=== PATIENT | female | born 1965 | race Hispanic/Latino ===

== ENCOUNTER 2017-03-02 21:17 | Emergency (ER) | payer SELFPAY ==
[2017-03-02 22:15] LABS: Eosinophils % (Auto) 2.2 % (0.0-4.3)
[2017-03-02 22:37] LABS: Alkaline Phosphatase 170 units/L (35-129); BUN/Creatinine Ratio 23.33; Blood Urea Nitrogen 14 mg/dL (7-17); Calcium 9.2 mg/dL (8.4-10.2); Carbon Dioxide 22 mmol/L (22-30); Chloride 89.6 mmol/L (98-107); Glucose 387 mg/dL (65-100); Total Protein 7.6 g/dL (6.3-8.2)
[2017-03-02 22:38] LABS: INR 0.83 (0.87-1.13)
[2017-03-02 22:45] LABS: Bilirubin,Urine NEG (Negative); Blood,Urine SM (Negative); Ketones,Urine NEG (Negative); Leukocyte Esterase,Urine NEG (Negative); Nitrite,Urine NEG (Negative); Protein,Urine <15 mg/dL mg/dL (Negative); Urobilinogen,Urine < 2.0 mg/dL (<2.0); WBC,Urine < 1.0 /HPF (0.0-6.0)
[2017-03-02 22:50] LABS: Albumin 3.9 g/dL (3.9-5); Albumin/Globulin Ratio 1.1 %; Anion Gap 24 mmol/L; Potassium 4.1 mmol/L (3.6-5.0); Sodium 133 mmol/L (137-145)
[2017-03-02 23:09] LABS: Alanine Aminotransferase 27 units/L (7-56)
[2017-03-02 23:30] LABS: Mean Corpuscular Volume 82 fl (79-97); Red Blood Count 5.08 M/mm3 (3.65-5.03); White Blood Count 8.7 K/mm3 (4.5-11.0)
[2017-03-02 23:40] LABS: Basophils % (Auto) 0.7 % (0.0-1.8); Hematocrit 42.7 % (30.3-42.9); Hemoglobin 14.3 gm/dl (10.1-14.3); Mean Corpuscular HGB Conc 34 % (30-34); Mean Corpuscular Hemoglobin 27 pg (28-32); Platelet Count 238 K/mm3 (140-440); Red Cell Distribution Width 14.3 % (13.2-15.2)
[2017-03-03] MEDS ORDERED: NACL 0.9% 1000 ML 1,000 ML IV ONE ×2 (00:32→02:06)
[2017-03-03] MEDS ORDERED: BACTRIM DS PO ONE (00:33)
--- NOTE | 2017-03-03 00:49 | Emergency Department Report ---
ED General Adult HPI - General Chief complaint: Hyperglycemia Stated complaint: HIGH BLOOD SUGAR/DIZZINESS/BLURRED VISION Time Seen by Provider: 03/03/17 00:07 Source: patient Mode of arrival: Ambulatory Limitations: No Limitations - History of Present Illness Initial comments: 51-year-old female with a past medical history of diabetes, hypertension, and depression presents to the hospital complaints of elevated glucose for the past 2 days. Patient takes Amaryl 4 mg twice a day, metformin 500 mg twice a day, and Lantus 75 units at night. Patient has been intermittently compliant and takes medication when she has it. She has had insulin for the last 4 days but took her last dose last night. Patient complains of increased urination, lightheadedness, generalized body aches since yesterday. Positive nausea without vomiting. Yesterday her sugar was in the 480s and today she checked it and it just read high. History of DKA in the past. Patient has a chronic right great toe ulcer that gets better and worse intermittently. No reports of fever. Patient has diabetic neuropathy with decreased sensation to the extremities chronically. Severity scale (0 -10): 0 - Related Data Home Medications Medication Instructions Recorded Confirmed Last Taken Carisoprodol [Soma] 350 mg PO BID 03/22/16 09/16/16 Unknown Metformin HCl [Metformin HCl ER] 750 mg PO BID 09/16/16 09/16/16 Unknown Previous Rx's Medication Instructions Recorded Last Taken Type Butalb/Acetamin/Caff 50-325-40 1 each PO Q4H PRN #30 tablet 03/27/16 Unknown Rx [Fioricet] Citalopram Hydrobromide [celeXA] 40 mg PO QAM #30 tablet 03/27/16 Unknown Rx Verapamil HCl [Verelan] 360 mg PO DAILY #30 cap24h.pel 03/27/16 Unknown Rx Clindamycin [Clindamycin CAP] 300 mg PO TID #24 capsule 09/17/16 Unknown Rx Insulin NPH/Regular [NovoLIN 70/30] 25 unit SQ BIDDIAB #100 ml 09/17/[address] [Yaron Rosa] 250 mg PO BID #60 tablet 09/18/16 Unknown Rx Insulin Glargine [Lantus] 75 unit SUB-Q QHS 30 Days 03/03/17 Unknown Rx Sulfamethoxazole/Trimethoprim 1 each PO BID #20 tablet 03/03/17 Unknown Rx [Bactrim DS TAB] Allergies Allergy/AdvReac Type Severity Reaction Status Date / Time meperidine HCl [From Demerol] Allergy Unknown Verified 09/16/16 06:19 ED Review of Systems ROS: Stated complaint: HIGH BLOOD SUGAR/DIZZINESS/BLURRED VISION Other details as noted in HPI Comment: All other systems reviewed and negative Other: Constitutional: No fevers chills Eyes: No eye pain visual changes ENT: No ear pain or throat pain Neck: Denies pain Respiratory: Denies cough wheezing shortness of breath Cardiovascular: Denies chest pain, palpitations, syncope GI: Denies abdominal pain, nausea, vomiting, diarrhea : Denies dysuria Musculoskeletal: myalgias Skin: great toe ulcer Neurologic: Denies headache, numbness, weakness ED Past Medical Hx - Past Medical History Hx Hypertension: Yes Hx Congestive Heart Failure: No Hx Diabetes: Yes Hx Headaches / Migraines: Yes Hx Psychiatric Treatment: Yes (depression) Hx Asthma: No Hx COPD: No - Surgical History Hx Cholecystectomy: Yes Additional Surgical History: TUBAL LIGATION - Social History Smoking Status: Never Smoker Substance Use Type: None - Medications Home Medications: Home Medications Medication Instructions Recorded Confirmed Last Taken Type Carisoprodol [Soma] 350 mg PO BID 03/22/16 09/16/16 Unknown History Butalb/Acetamin/Caff 50-325-40 1 each PO Q4H PRN #30 tablet 03/27/16 09/16/16 Unknown Rx [Fioricet] Citalopram Hydrobromide [celeXA] 40 mg PO QAM #30 tablet 03/27/16 09/16/16 Unknown Rx Verapamil HCl [Verelan] 360 mg PO DAILY #30 cap24h.pel 03/27/16 09/16/16 Unknown Rx Metformin HCl [Metformin HCl ER] 750 mg PO BID 09/16/16 09/16/16 Unknown History Clindamycin [Clindamycin CAP] 300 mg PO TID #24 capsule 09/17/16 Unknown Rx Insulin NPH/Regular [NovoLIN 70/30] 25 unit SQ BIDDIAB #100 ml 09/17/[address] [Depakote Dr] 250 mg PO BID #60 tablet 09/18/16 Unknown Rx Insulin Glargine [Lantus] 75 unit SUB-Q QHS 30 Days 03/03/17 Unknown Rx Sulfamethoxazole/Trimethoprim 1 each PO BID #20 tablet 03/03/17 Unknown Rx [Bactrim DS TAB] ED Physical Exam - General Limitations: No Limitations - Other Other exam information: General: No limitations, patient is alert in no acute distress Head exam: Atraumatic, normocephalic Eyes exam: Normal appearance, pupils equal reactive to light, extraocular movements intact ENT: Moist mucous membrane Neck exam: Normal inspection, full range of motion, no meningismus nontender Respiratory exam: Clear to auscultation bilateral, no wheezes, rales, crackles Cardiovascular: Normal rate and rhythm, normal heart sounds Abdomen: Soft, nondistended, and nontender, with normal bowel sounds, no rebound, or guarding Extremity: Full range of motion. Right great toe 1 x 2 cm ulcer to pulp of the toe. Erythema to distal toe Back: Normal Inspection, full range of motion, no tenderness Neurologic: Alert, oriented x3, cranial nerves intact, no motor or sensory deficit Psychiatric: normal affect, normal mood Skin: Warm, dry, intact ED Course Vital Signs 03/02/17 03/02/17 03/03/17 21:25 23:39 03:21 Temperature 99 F 98 F 98 F Pulse Rate 116 H 107 H 85 Respiratory 18 18 18 Rate Blood Pressure 177/96 Blood Pressure 136/86 140/83 [Left] O2 Sat by Pulse 97 93 96 Oximetry 03/03/17 04:56 Temperature Pulse Rate Respiratory 18 Rate Blood Pressure Blood Pressure [Left] O2 Sat by Pulse Oximetry - Reevaluation(s) Reevaluation #1: 03/03/17 02:08 Patient was lightheaded with sitting in the bed therefore 2 L of normal saline, regular insulin provided as well as Bactrim for her great toe ulcer with possible acute infection given erythema Reevaluation #2: 03/03/17 05:29 Received 2 L normal saline. Orthostatics negative after receiving meds and dizziness improved. Patient glucose improved after 2 separate insulin boluses. ED Medical Decision Making - Lab Data Result diagrams: 03/02/17 21:48 03/02/17 21:48 Lab Results 03/02/17 03/02/17 03/02/17 Range/Units 21:25 21:48 21:48 WBC 8.7 (4.5-11.0) K/mm3 RBC 5.08 H (3.65-5.03) M/mm3 Hgb 14.3 (10.1-14.3) gm/dl Hct 42.7 (30.3-42.9) % MCV 82 (79-97) fl MCH 27 L (28-32) pg MCHC 34 (30-34) % RDW 14.3 (13.2-15.2) % Plt Count 238 (140-440) K/mm3 Lymph % (Auto) 31.7 (13.4-35.0) % [place] % (Auto) 3.7 (0.0-7.3) % Eos % (Auto) 2.2 (0.0-4.3) % Baso % (Auto) 0.7 (0.0-1.8) % Lymph # 2.7 (1.2-5.4) K/mm3 [place] # 0.3 (0.0-0.8) K/mm3 Eos # 0.2 (0.0-0.4) K/mm3 Baso # 0.1 (0.0-0.1) K/mm3 Seg Neutrophils % 61.7 (40.0-70.0) % Seg Neutrophils # 5.3 (1.8-7.7) K/mm3 PT 11.3 L (12.2-14.9) Sec. INR 0.83 L (0.87-1.13) VBG pH (7.320-7.420) Sodium (137-145) mmol/L Potassium (3.6-5.0) mmol/L Chloride (98-107) mmol/L Carbon Dioxide (22-30) mmol/L Anion Gap mmol/L BUN (7-17) mg/dL Creatinine (0.7-1.2) mg/dL Estimated GFR ml/min BUN/Creatinine Ratio % Glucose (65-100) mg/dL POC Glucose 387 H (70-105) Lactic Acid (0.7-2.0) mmol/L Calcium (8.4-10.2) mg/dL Total Bilirubin (0.1-1.2) mg/dL AST (5-40) units/L ALT (7-56) units/L Alkaline Phosphatase (35-129) units/L Total Protein (6.3-8.2) g/dL Albumin (3.9-5) g/dL Albumin/Globulin Ratio % Urine Color (Yellow) Urine Turbidity (Clear) Urine pH (5.0-7.0) Ur Specific [place] (1.003-1.030) Urine Protein (Negative) mg/dL Urine Glucose (UA) (Negative) mg/dL Urine Ketones (Negative) mg/dL Urine Blood (Negative) Urine Nitrite (Negative) Urine Bilirubin (Negative) Urine Urobilinogen (<2.0) mg/dL Ur Leukocyte Esterase (Negative) Urine WBC (Auto) (0.0-6.0) /HPF Urine RBC (Auto) (0.0-6.0) /HPF U Epithel Cells (Auto) (0-13.0) /HPF 03/02/17 03/02/17 03/02/17 Range/Units 21:48 21:48 21:48 WBC (4.5-11.0) K/mm3 RBC (3.65-5.03) M/mm3 Hgb (10.1-14.3) gm/dl Hct (30.3-42.9) % MCV (79-97) fl MCH (28-32) pg MCHC (30-34) % RDW (13.2-15.2) % Plt Count (140-440) K/mm3 Lymph % (Auto) (13.4-35.0) % [place] % (Auto) (0.0-7.3) % Eos % (Auto) (0.0-4.3) % Baso % (Auto) (0.0-1.8) % Lymph # (1.2-5.4) K/mm3 [place] # (0.0-0.8) K/mm3 Eos # (0.0-0.4) K/mm3 Baso # (0.0-0.1) K/mm3 Seg Neutrophils % (40.0-70.0) % Seg Neutrophils # (1.8-7.7) K/mm3 PT (12.2-14.9) Sec. INR (0.87-1.13) VBG pH 7.388 (7.320-7.420) Sodium 133 L (137-145) mmol/L Potassium 4.1 (3.6-5.0) mmol/L Chloride 89.6 L (98-107) mmol/L Carbon Dioxide 22 (22-30) mmol/L Anion Gap 24 mmol/L BUN 14 (7-17) mg/dL Creatinine 0.6 L (0.7-1.2) mg/dL Estimated GFR > 60 ml/min BUN/Creatinine Ratio 23.33 % Glucose 387 H (65-100) mg/dL POC Glucose (70-105) Lactic Acid 2.70 H* (0.7-2.0) mmol/L Calcium 9.2 (8.4-10.2) mg/dL Total Bilirubin 0.20 (0.1-1.2) mg/dL AST 5 (5-40) units/L ALT 27 (7-56) units/L Alkaline Phosphatase 170 H (35-129) units/L Total Protein 7.6 (6.3-8.2) g/dL Albumin 3.9 (3.9-5) g/dL Albumin/Globulin Ratio 1.1 % Urine Color (Yellow) Urine Turbidity (Clear) Urine pH (5.0-7.0) Ur Specific [place] (1.003-1.030) Urine Protein (Negative) mg/dL Urine Glucose (UA) (Negative) mg/dL Urine Ketones (Negative) mg/dL Urine Blood (Negative) Urine Nitrite (Negative) Urine Bilirubin (Negative) Urine Urobilinogen (<2.0) mg/dL Ur Leukocyte Esterase (Negative) Urine WBC (Auto) (0.0-6.0) /HPF Urine RBC (Auto) (0.0-6.0) /HPF U Epithel Cells (Auto) (0-13.0) /HPF 03/02/17 03/02/17 03/03/17 Range/Units 22:15 23:20 00:46 WBC (4.5-11.0) K/mm3 RBC (3.65-5.03) M/mm3 Hgb (10.1-14.3) gm/dl Hct (30.3-42.9) % MCV (79-97) fl MCH (28-32) pg MCHC (30-34) % RDW (13.2-15.2) % Plt Count (140-440) K/mm3 Lymph % (Auto) (13.4-35.0) % [place] % (Auto) (0.0-7.3) % Eos % (Auto) (0.0-4.3) % Baso % (Auto) (0.0-1.8) % Lymph # (1.2-5.4) K/mm3 [place] # (0.0-0.8) K/mm3 Eos # (0.0-0.4) K/mm3 Baso # (0.0-0.1) K/mm3 Seg Neutrophils % (40.0-70.0) % Seg Neutrophils # (1.8-7.7) K/mm3 PT (12.2-14.9) Sec. INR (0.87-1.13) VBG pH (7.320-7.420) Sodium (137-145) mmol/L Potassium (3.6-5.0) mmol/L Chloride (98-107) mmol/L Carbon Dioxide (22-30) mmol/L Anion Gap mmol/L BUN (7-17) mg/dL Creatinine (0.7-1.2) mg/dL Estimated GFR ml/min BUN/Creatinine Ratio % Glucose (65-100) mg/dL POC Glucose 323 H (70-105) Lactic Acid 1.30 (0.7-2.0) mmol/L Calcium (8.4-10.2) mg/dL Total Bilirubin (0.1-1.2) mg/dL AST (5-40) units/L ALT (7-56) units/L Alkaline Phosphatase (35-129) units/L Total Protein (6.3-8.2) g/dL Albumin (3.9-5) g/dL Albumin/Globulin Ratio % Urine Color Yellow (Yellow) Urine Turbidity Clear (Clear) Urine pH 6.0 (5.0-7.0) Ur Specific [place] 1.017 (1.003-1.030) Urine Protein <15 mg/dl (Negative) mg/dL Urine Glucose (UA) >=500 (Negative) mg/dL Urine Ketones Neg (Negative) mg/dL Urine Blood Sm (Negative) Urine Nitrite Neg (Negative) Urine Bilirubin Neg (Negative) Urine Urobilinogen < 2.0 (<2.0) mg/dL Ur Leukocyte Esterase Neg (Negative) Urine WBC (Auto) < 1.0 (0.0-6.0) /HPF Urine RBC (Auto) 1.0 (0.0-6.0) /HPF U Epithel Cells (Auto) 1.0 (0-13.0) /HPF 03/03/17 03/03/17 03/03/17 Range/Units 01:29 02:32 03:09 WBC (4.5-11.0) K/mm3 RBC (3.65-5.03) M/mm3 Hgb (10.1-14.3) gm/dl Hct (30.3-42.9) % MCV (79-97) fl MCH (28-32) pg MCHC (30-34) % RDW (13.2-15.2) % Plt Count (140-440) K/mm3 Lymph % (Auto) (13.4-35.0) % [place] % (Auto) (0.0-7.3) % Eos % (Auto) (0.0-4.3) % Baso % (Auto) (0.0-1.8) % Lymph # (1.2-5.4) K/mm3 [place] # (0.0-0.8) K/mm3 Eos # (0.0-0.4) K/mm3 Baso # (0.0-0.1) K/mm3 Seg Neutrophils % (40.0-70.0) % Seg Neutrophils # (1.8-7.7) K/mm3 PT (12.2-14.9) Sec. INR (0.87-1.13) VBG pH (7.320-7.420) Sodium (137-145) mmol/L Potassium (3.6-5.0) mmol/L Chloride (98-107) mmol/L Carbon Dioxide (22-30) mmol/L Anion Gap mmol/L BUN (7-17) mg/dL Creatinine (0.7-1.2) mg/dL Estimated GFR ml/min BUN/Creatinine Ratio % Glucose (65-100) mg/dL POC Glucose 307 H 247 H 260 H (70-105) Lactic Acid (0.7-2.0) mmol/L Calcium (8.4-10.2) mg/dL Total Bilirubin (0.1-1.2) mg/dL AST (5-40) units/L ALT (7-56) units/L Alkaline Phosphatase (35-129) units/L Total Protein (6.3-8.2) g/dL Albumin (3.9-5) g/dL Albumin/Globulin Ratio % Urine Color (Yellow) Urine Turbidity (Clear) Urine pH (5.0-7.0) Ur Specific [place] (1.003-1.030) Urine Protein (Negative) mg/dL Urine Glucose (UA) (Negative) mg/dL Urine Ketones (Negative) mg/dL Urine Blood (Negative) Urine Nitrite (Negative) Urine Bilirubin (Negative) Urine Urobilinogen (<2.0) mg/dL Ur Leukocyte Esterase (Negative) Urine WBC (Auto) (0.0-6.0) /HPF Urine RBC (Auto) (0.0-6.0) /HPF U Epithel Cells (Auto) (0-13.0) /HPF / Range/Units 04:22 WBC (4.5-11.0) K/mm3 RBC (3.65-5.03) M/mm3 Hgb (10.1-14.3) gm/dl Hct (30.3-42.9) % MCV (79-97) fl MCH (28-32) pg MCHC (30-34) % RDW (13.2-15.2) % Plt Count (140-440) K/mm3 Lymph % (Auto) (13.4-35.0) % [place] % (Auto) (0.0-7.3) % Eos % (Auto) (0.0-4.3) % Baso % (Auto) (0.0-1.8) % Lymph # (1.2-5.4) K/mm3 [place] # (0.0-0.8) K/mm3 Eos # (0.0-0.4) K/mm3 Baso # (0.0-0.1) K/mm3 Seg Neutrophils % (40.0-70.0) % Seg Neutrophils # (1.8-7.7) K/mm3 PT (12.2-14.9) Sec. INR (0.87-1.13) VBG pH (7.320-7.420) Sodium (137-145) mmol/L Potassium (3.6-5.0) mmol/L Chloride (98-107) mmol/L Carbon Dioxide (22-30) mmol/L Anion Gap mmol/L BUN (7-17) mg/dL Creatinine (0.7-1.2) mg/dL Estimated GFR ml/min BUN/Creatinine Ratio % Glucose (65-100) mg/dL POC Glucose 186 H (70-105) Lactic Acid (0.7-2.0) mmol/L Calcium (8.4-10.2) mg/dL Total Bilirubin (0.1-1.2) mg/dL AST (5-40) units/L ALT (7-56) units/L Alkaline Phosphatase (35-129) units/L Total Protein (6.3-8.2) g/dL Albumin (3.9-5) g/dL Albumin/Globulin Ratio % Urine Color (Yellow) Urine Turbidity (Clear) Urine pH (5.0-7.0) Ur Specific [place] (1.003-1.030) Urine Protein (Negative) mg/dL Urine Glucose (UA) (Negative) mg/dL Urine Ketones (Negative) mg/dL Urine Blood (Negative) Urine Nitrite (Negative) Urine Bilirubin (Negative) Urine Urobilinogen (<2.0) mg/dL Ur Leukocyte Esterase (Negative) Urine WBC (Auto) (0.0-6.0) /HPF Urine RBC (Auto) (0.0-6.0) /HPF U Epithel Cells (Auto) (0-13.0) /HPF - EKG Data -: EKG Interpreted by Me (sinus tach 112, left axis deviation, septal infarct) - Radiology Data Radiology results: report reviewed (cxr: naf) - Medical Decision Making No signs of DKA. Patient hydrated in the ED. Glucose improved insulin. Will be discharged home with a refill in her Lantus. Bactrim for her toe infection. Follow-up will be encouraged - Differential Diagnosis DKA, medication noncompliance, hyperglycemia, dehydration, infection Critical Care Time: No Critical care attestation.: If time is entered above; I have spent that time in minutes in the direct care of this critically ill patient, excluding procedure time. ED Disposition Clinical Impression: Diabetic foot infection, Hyperglycemia Disposition: DISCHARGED TO HOME OR SELFCARE Is pt being admited?: No Does the pt Need Aspirin: No Condition: Stable Instructions: Diabetes Mellitus Type 2 in Adults (ED), Chronic Wound Care (ED) , Diabetic Foot Ulcers (ED) Additional Instructions: Take medications as prescribed. Follow-up with the primary care doctor, clinic , or the doctor of your choice. Also follow with the wound care clinic provided. Return if symptoms worsen. Prescriptions: Insulin Glargine [Lantus] 75 unit SUB-Q QHS 30 Days Sulfamethoxazole/Trimethoprim [Bactrim DS TAB] 1 each PO BID #20 tablet Referrals: PRIMARY MD OBED [Primary Care Provider] - 3-5 Days [facility] [Provider Group] - 3-5 Days [facility] [Outside] - 3-5 Days ZOHREH TERRELL MD [Staff Physician] - 3-5 Days Time of Disposition: 05:31
[2017-03-03 03:22] VITALS: BP 140/83
[2017-03-03] MEDS ORDERED: TORADOL IV ONE (04:41)
--- NOTE | 2017-03-03 07:09 | XRay Report ---
Chest 2 views: Compared to 03/22/16. History: Possible sepsis. Findings: Normal cardiomediastinal silhouette. Trachea is midline. No consolidation, pneumothorax or pleural effusion. Impression: No acute cardiopulmonary findings.
== END 2017-03-03 07:00 | disposition home or self-care (01) ==
LOC: ED 21:17
DX: E11.65 Type 2 diabetes mellitus with hyperglycemia (principal); E11.621 Type 2 diabetes mellitus with foot ulcer; I10 Essential (primary) hypertension; F32.9 Major depressive disorder, single episode, unspecified; Z79.4 Long term (current) use of insulin; Z88.8 Allergy status to other drugs, medicaments and biological substances
CPT/HCPCS: 36415; 71020; 80053; 81001; 82140; 82805; 82962; 85025; 85610; 87040; 87086; 93005; 93010; 96361; 96374; 96375; 99284; J1885; J7030; J1815

== ENCOUNTER 2017-05-09 15:42 | Inpatient (IN) | payer SELFPAY ==
[2017-05-09 16:55] LABS: Bilirubin,Urine NEG (Negative); Blood,Urine NEG (Negative); Ketones,Urine 20 mg/dL (Negative); Leukocyte Esterase,Urine NEG (Negative); Mucus,Urine FEW /HPF; Nitrite,Urine NEG (Negative); Protein,Urine <15 mg/dL mg/dL (Negative); Urobilinogen,Urine < 2.0 mg/dL (<2.0); WBC,Urine < 1.0 /HPF (0.0-6.0)
[2017-05-09 17:20] LABS: Blood Urea Nitrogen 22 mg/dL (7-17); Calcium 9.6 mg/dL (8.4-10.2); Carbon Dioxide 21 mmol/L (22-30)
[2017-05-09 17:34] LABS: Potassium 6.2 mmol/L (3.6-5.0)
[2017-05-09 17:35] LABS: Glucose 688 mg/dL (65-100)
[2017-05-09 17:39] LABS: Anion Gap 27 mmol/L; Sodium 124 mmol/L (137-145)
[2017-05-09 18:13] LABS: Basophils % (Auto) 0.9 % (0.0-1.8); Eosinophils % (Auto) 3.2 % (0.0-4.3); Mean Corpuscular HGB Conc 37 % (30-34); Mean Corpuscular Hemoglobin 30 pg (28-32); Mean Corpuscular Volume 82 fl (79-97); Platelet Count 333 K/mm3 (140-440); Red Blood Count 5.25 M/mm3 (3.65-5.03); Red Cell Distribution Width 14.8 % (13.2-15.2); White Blood Count 9.9 K/mm3 (4.5-11.0)
[2017-05-09 18:20] LABS: Hematocrit 43.3 % (30.3-42.9); Hemoglobin 15.9 gm/dl (10.1-14.3)
[2017-05-09] MEDS ORDERED: NACL 0.9% 1000 ML 1,000 ML IV ONE ×2 (18:35→18:37)
[2017-05-09] MEDS ORDERED: D50W (25GM) IV PRN ×2 (18:37→19:38)
[2017-05-09] MEDS ORDERED: KIONEX PO ONE (18:38)
[2017-05-09] MEDS ORDERED: PROVENTIL IH ONE (18:38)
--- NOTE | 2017-05-09 18:59 | Emergency Department Report ---
ED General Adult HPI - General Chief complaint: Hyperglycemia Stated complaint: POSS DKA/SENT BY DOC Time Seen by Provider: 05/09/17 18:35 Source: patient Mode of arrival: Ambulatory Limitations: No Limitations - History of Present Illness Initial comments: 51-year-old female with past medical history DKA, migraines, chronic back pain has presented to the ED after being sent from her PCP office for mild DKA. Per patient she's been out of her glipizide and metformin for approximately one week. She went to her PCPs office to have medications refilled at that time lab work was drawn and she was found to have high blood glucose. Other than chronic pain, patient has no acute complaints. Patient denies fevers/chills, chest pain, abdominal pain, nausea/vomiting/diarrhea. She admits she has had increase frequency in her thirst. Patient states she has a chronic wound on her right great toe and it has not worsened in pain or intensity. Associated Symptoms: denies other symptoms. denies: confusion, chest pain, cough, diaphoresis, loss of appetite, malaise, nausea/vomiting, shortness of breath, syncope, weakness - Related Data Home Medications Medication Instructions Recorded Confirmed Last Taken Carisoprodol [Soma] 350 mg PO BID 03/22/16 05/09/17 Unknown Metformin HCl [Metformin HCl ER] 750 mg PO BID 09/16/16 05/09/17 Unknown Doxepin [SINEquan] 200 mg PO QHS 05/09/17 05/09/17 Unknown Glimepiride [Amaryl] 4 mg PO BID 05/09/17 05/09/17 Unknown Verapamil HCl [Verelan] 360 mg PO BID 05/09/17 05/09/17 Unknown Previous Rx's Medication Instructions Recorded Last Taken Type Butalb/Acetamin/Caff 50-325-40 1 each PO Q4H PRN #30 tablet 03/27/16 Unknown Rx [Fioricet] Insulin NPH/Regular [NovoLIN 70/30] 25 unit SQ BIDDIAB #100 ml 09/17/16 Unknown Rx Insulin Glargine [Lantus] 75 unit SUB-Q QHS 30 Days 03/03/17 Unknown Rx Allergies Allergy/AdvReac Type Severity Reaction Status Date / Time meperidine HCl [From Demerol] Allergy Unknown Verified 05/09/17 16:15 ED Review of Systems ROS: Stated complaint: POSS DKA/SENT BY DOC Other details as noted in HPI Constitutional: denies: chills, fever Eyes: denies: eye pain, eye discharge, vision change ENT: denies: ear pain, throat pain Respiratory: denies: cough, shortness of breath, wheezing Cardiovascular: denies: chest pain, palpitations Endocrine: no symptoms reported Gastrointestinal: denies: abdominal pain, nausea, diarrhea Genitourinary: denies: urgency, dysuria, discharge Musculoskeletal: denies: back pain, joint swelling, arthralgia Skin: denies: rash, lesions Neurological: denies: headache, weakness, paresthesias Psychiatric: denies: anxiety, depression Hematological/Lymphatic: denies: easy bleeding, easy bruising ED Past Medical Hx - Past Medical History Hx Hypertension: Yes Hx Congestive Heart Failure: No Hx Diabetes: Yes Hx Headaches / Migraines: Yes Hx Psychiatric Treatment: Yes (depression) Hx Asthma: No Hx COPD: No - Surgical History Hx Cholecystectomy: Yes Additional Surgical History: TUBAL LIGATION - Social History Smoking Status: Never Smoker Substance Use Type: Prescribed - Medications Home Medications: Home Medications Medication Instructions Recorded Confirmed Last Taken Type Carisoprodol [Soma] 350 mg PO BID 03/22/16 05/09/17 Unknown History Butalb/Acetamin/Caff 50-325-40 1 each PO Q4H PRN #30 tablet 03/27/16 05/09/17 Unknown Rx [Fioricet] Metformin HCl [Metformin HCl ER] 750 mg PO BID 09/16/16 05/09/17 Unknown History Insulin NPH/Regular [NovoLIN 70/30] 25 unit SQ BIDDIAB #100 ml 09/17/16 Unknown Rx Insulin Glargine [Lantus] 75 unit SUB-Q QHS 30 Days 03/03/17 05/09/17 Unknown Rx Doxepin [SINEquan] 200 mg PO QHS 05/09/17 05/09/17 Unknown History Glimepiride [Amaryl] 4 mg PO BID 05/09/17 05/09/17 Unknown History Verapamil HCl [Verelan] 360 mg PO BID 05/09/17 05/09/17 Unknown History ED Physical Exam - General Limitations: No Limitations General appearance: alert, in no apparent distress - Head Head exam: Present: atraumatic, normocephalic - Eye Eye exam: Present: normal appearance - ENT ENT exam: Present: mucous membranes moist - Neck Neck exam: Present: normal inspection - Respiratory Respiratory exam: Present: normal lung sounds bilaterally. Absent: respiratory distress - Cardiovascular Cardiovascular Exam: Present: regular rate, normal rhythm. Absent: systolic murmur, diastolic murmur, rubs, gallop - GI/Abdominal GI/Abdominal exam: Present: soft, normal bowel sounds - Extremities Exam Extremities exam: Present: normal inspection - Back Exam Back exam: Present: normal inspection - Neurological Exam Neurological exam: Present: alert, oriented X3 - Psychiatric Psychiatric exam: Present: normal affect, normal mood - Skin Skin exam: Present: warm, dry, intact, normal color. Absent: rash ED Course Vital Signs 05/09/17 05/09/17 05/09/17 16:15 17:55 18:00 Temperature 97.8 F Pulse Rate 116 H 109 H 107 H Respiratory 20 19 Rate Blood Pressure 108/66 131/67 Blood Pressure [Left] O2 Sat by Pulse 96 95 Oximetry 05/09/17 05/09/17 05/09/17 18:15 18:30 18:46 Temperature Pulse Rate 103 H 107 H Respiratory 17 22 22 Rate Blood Pressure 131/67 122/74 Blood Pressure [Left] O2 Sat by Pulse 95 92 92 Oximetry 05/09/17 05/09/17 19:00 20:00 Temperature 98 F Pulse Rate 107 H 109 H Respiratory 20 18 Rate Blood Pressure Blood Pressure 141/84 143/73 [Left] O2 Sat by Pulse 100 99 Oximetry - Reevaluation(s) Reevaluation #1: 05/09/17 21:55 pt potassium was hemolyized and not critically elevated. 05/09/17 21:55 ED Medical Decision Making - Lab Data Result diagrams: 05/09/17 16:43 05/09/17 18:46 - EKG Data EKG shows normal: sinus rhythm, axis (left ), QRS complexes (88) Rate: tachycardia (107) - EKG Data Interpretation: other (sinus tachycardia ) - Medical Decision Making 51-year-old female with past medical history diabetes has presented to the ED with hyperglycemia 1) mild DKA. Likely cause this patient's symptoms as her noncompliance to medications. Patient states she's been out of her medications for a week. Currently patient has no complaints. Patient has been admitted to Dr. Gasca's service. Suspicion for ACS, hyperkalemia, UTI. Critical Care Time: Yes Critical care time in (mins) excluding proc time.: 35 Critical care attestation.: If time is entered above; I have spent that time in minutes in the direct care of this critically ill patient, excluding procedure time. Critical Care Time: 35 minutes ED Disposition Clinical Impression: DKA (diabetic ketoacidoses), Hyperglycemia Disposition: OP ADMIT IP TO THIS HOSP Is pt being admited?: Yes Does the pt Need Aspirin: No Condition: Stable Instructions: Diabetic Ketoacidosis (ED) Referrals: PRIMARY CARE, [Primary Care Provider] - 3-5 Days
[2017-05-09] MEDS ORDERED: CALCIUM GLUCONATE 1,000 MG in NACL 0.9% 100 ML IV ONE (19:00)
[2017-05-09] MEDS ORDERED: NovoLIN R 100 UNITS in NACL 0.9% 99 ML IV SCH (19:00)
--- NOTE | 2017-05-09 19:07 | Admit Criteria Form ---
Admission Criteria Documentation: DIABETES Clinical Indications for Admission to Inpatient Care (Place 'X' for any and all applicable criteria): Admission is indicated by presence of ALL (if I & II) or ANY ONE (if III or IV) of the following (1)(2)(3)(4): [X]I. Diabetes is uncontrolled as indicated by ANY ONE of the following: [X]a) Diabetic ketoacidosis as indicated by ALL of the following (8): [X]i) Hyperglycemia (eg, plasma glucose greater than 200 mg/ dL (11.1 mmol/L)) [X]ii) Acidosis (eg, arterial pH less than 7.30, serum bicarbonate level less than 15 mEq/L (mmol/L)) [ ]iii) Moderate ketonuria or ketonemia [ ]b) Hyperglycemic hyperosmolar state as indicated by ALL of the following(9)(10): [ ]i) Neurologic dysfunction (eg, stupor, coma, hemiparesis , seizure)(13) [ ]ii) Plasma glucose greater than 600 mg/dL (33.3 mmol/L) [ ]iii) Serum osmolality greater than 320 mOsm/kg (mmol/kg) [X]c) Severe signs or symptoms secondary to hyperglycemia indicated by ANY ONE of the following: [ ]i) Altered mental status(10) [ ]ii) Significant hypovolemia or dehydration [ ]iii) Intractable nausea or vomiting [ ]iv) Unexplained fever or severe infection [X]v) Severe electrolyte abnormality (eg, hypokalemia, hyperkalemia, hypernatremia) [ ]II. Management at other levels of care (Also use Diabetes: Observation Care as appropriate) is not feasible because of ANY ONE of the following: [ ]a) Condition was not adequately corrected with treatment at other levels of care. [ ]b) Treatment at other levels of care is not appropriate because of condition severity (eg, hyperosmolar coma). [ ]III. Contraindications and/or Inappropriate clinical situations for Observational Care in patients with Diabetes, when ANY ONE of the following is required: [ ]a) Patient require specific diagnostic workup or therapeutic intervention 22 [ ]b) Patient with abnormal vital signs or altered mental status 23 [ ]IV. General contraindications and/or Inappropriate clinical situations for Observational Care in patients with Diabetes, when ANY ONE of the following is required: [ ]a) Prediction of prolongation of LOS based on ANY ONE of the following may be considered as a contraindication for observational care 2, 3, 4, 5, 6, 7, 8, 9, 10, 11 [ ]i) Age > 65 yrs. [ ]ii) Patient arriving by ambulance [ ]iii) Patient with high acuity [ ]iv) Patient requiring vital sign monitoring [ ]v) Patient on IV medication [ ]b) Systolic blood pressures 180mmHg 3,12 [ ]c) Patient with altered mental status including delirium and other alteration of consciousness, (3) [ ]d) Patient whose discharge disposition will be to a care home home or rehabilitation home should not be managed in Emergency Department Observation Unit. CMS rule requires 3 days hospital stay before such placement.3,13 [ ]e) Patient with failure to thrive due to broad array of etiologies 3,16,17 [ ]f) Inability to ambulate 3,14 Extended stay beyond goal length of stay may be needed for(3)(20): [ ]a) Treatment of precipitating causes [ ]b) Development of hypoglycemia [ ]c) Complications of treatment [ ]d) Complications of decompensated diabetes (eg, acute gastric dilatation, persistent metabolic or neurologic derangement) [ ]e) Active Comorbidities [ ]f) Older patients( 65 years or older) The original [employer] content created by [employer] has been revised. The portions of the content which have been revised are identified through the use of italic text or in bold,and [facility] has neither reviewed nor approved the modified material. All other unmodified content is copyright [employer]. Please see references footnoted in the original [facility] edition 2016 Admission Criteria Met: Yes
[2017-05-09 19:16] LABS: Phosphorous 4.4 mg/dL (2.5-4.5)
[2017-05-09 19:17] LABS: Blood Urea Nitrogen 21 mg/dL (7-17); Carbon Dioxide 18 mmol/L (22-30); Chloride 86.8 mmol/L (98-107)
--- NOTE | 2017-05-09 19:37 | History and Physical Report ---
History of Present Illness Chief complaint: my blood sugar is high History of present illness: 51 YO Female with DM, HTN, Migraine MARTINEZ, Depression, presents to ED for evaluation. Pt states that she ran out of her diabetes medication 1 week ago, and for the past week she has experienced poldipsia, polyuria. Pt was seen by PCP and found to have elevated serum glucose. Pt instructed to f/u in ED. Pt seen and evaluated in ED and found to have DKA. Pt initiated on DKA jprotocol, and transferred to ICU. Pt denies fever, chills, confusion, chest pain, cough, diaphoresis, loss of appetite, malaise, nausea/vomiting, shortness of breath, syncope, weakness, or recent ill contacts. Past History Past Medical History: diabetes, hypertension Past Surgical History: cholecystectomy, Other (Tubal ligation) Social history: , lives with family. denies: smoking, alcohol abuse, prescription drug abuse, IV drug use Family history: diabetes, hypertension Medications and Allergies Allergies Allergy/AdvReac Type Severity Reaction Status Date / Time meperidine HCl [From Demerol] Allergy Unknown Verified 05/09/17 16:15 Home Medications Medication Instructions Recorded Confirmed Last Taken Type Carisoprodol [Soma] 350 mg PO BID 03/22/16 05/09/17 Unknown History Butalb/Acetamin/Caff 50-325-40 1 each PO Q4H PRN #30 tablet 03/27/16 05/09/17 Unknown Rx [Fioricet] Metformin HCl [Metformin HCl ER] 750 mg PO BID 09/16/16 05/09/17 Unknown History Insulin NPH/Regular [NovoLIN 70/30] 25 unit SQ BIDDIAB #100 ml 09/17/16 Unknown Rx Insulin Glargine [Lantus] 75 unit SUB-Q QHS 30 Days 03/03/17 05/09/17 Unknown Rx Doxepin [SINEquan] 200 mg PO QHS 05/09/17 05/09/17 Unknown History Glimepiride [Amaryl] 4 mg PO BID 05/09/17 05/09/17 Unknown History Verapamil HCl [Verelan] 360 mg PO BID 05/09/17 05/09/17 Unknown History Active Meds: Active Medications Dextrose (D50w (25gm)) 0 ml IV ONCE PRN PRN Reason: Hypoglycemia Insulin Human Regular 100 (units/ Sodium Chloride) 100 mls @ 1 mls/hr IV TITR JANE; 1 UNITS/HR PRN Reason: Protocol Sodium Chloride (Nacl 0.9% 1000 Ml) 1,000 mls @ 999 mls/hr IV BOLUS ONE Stop: 05/09/17 19:37 Review of Systems All systems: negative Constitutional: no weight loss Ears, nose, mouth and throat: no ear pain Breasts: no mass Cardiovascular: no chest pain Respiratory: no cough Gastrointestinal: no abdominal pain Rectal: no pain Musculoskeletal: no neck stiffness Integumentary: no rash Neurological: no head injury Psychiatric: no anxiety Endocrine: polydipsia, polyuria Hematologic/Lymphatic: no easy bruising Allergic/Immunologic: no urticaria Exam - Constitutional Vitals: Temp Pulse Resp BP Pulse Ox 97.8 F 107 H 22 122/74 92 05/09/17 16:15 05/09/17 18:30 05/09/17 18:46 05/09/17 18:30 05/09/17 18:46 General appearance: Present: mild distress - EENT Eyes: Present: PERRL ENT: hearing intact, clear oral mucosa - Neck Neck: Present: supple, normal ROM - Respiratory Respiratory effort: normal Respiratory: bilateral: CTA - Cardiovascular Heart Sounds: Present: S1 & S2. Absent: rub, click - Extremities Extremities: pulses symmetrical, No edema Peripheral Pulses: within normal limits - Abdominal General gastrointestinal: Present: soft, non-tender, non-distended, normal bowel sounds Female genitourinary: Present: normal - Integumentary Integumentary: Present: clear, dry, clammy, decreased turgor - Musculoskeletal Musculoskeletal: gait normal, strength equal bilaterally - Psychiatric Psychiatric: appropriate mood/affect, intact judgment & insight - Neurologic Neurologic: CNII-XII intact, moves all extremities Results - Labs CBC & Chem 7: 05/09/17 16:43 05/10/17 03:06 Labs: Abnormal lab results 05/09/17 05/09/17 05/09/17 Range/Units 16:12 16:43 16:43 RBC 5.25 H (3.65-5.03) M/mm3 Hgb 15.9 H (10.1-14.3) gm/dl Hct 43.3 H (30.3-42.9) % MCHC 37 H (30-34) % VBG pH (7.320-7.420) Sodium 124 L (137-145) mmol/L Potassium 6.2 H* (3.6-5.0) mmol/L Chloride 82.0 L (98-107) mmol/L Carbon Dioxide 21 L (22-30) mmol/L BUN 22 H (7-17) mg/dL Creatinine 0.5 L (0.7-1.2) mg/dL Glucose 688 H* (65-100) mg/dL POC Glucose > 500 H (70-105) 05/09/17 05/09/17 05/09/17 Range/Units 16:43 18:15 18:46 RBC (3.65-5.03) M/mm3 Hgb (10.1-14.3) gm/dl Hct (30.3-42.9) % MCHC (30-34) % VBG pH 7.285 L (7.320-7.420) Sodium (137-145) mmol/L Potassium (3.6-5.0) mmol/L Chloride 86.8 L (98-107) mmol/L Carbon Dioxide 18 L (22-30) mmol/L BUN 21 H (7-17) mg/dL Creatinine 0.4 L (0.7-1.2) mg/dL Glucose 543 H* (65-100) mg/dL POC Glucose 453 H (70-105) Assessment and Plan - Patient Problems (1) DKA (diabetic ketoacidoses) Current Visit: Yes Status: Acute Qualifiers: Diabetes mellitus type: D Diabetes mellitus complication detail: D Plan to address problem: DKA Protocol: Insulin drip, IVF, monitor uop q shift, serial bmp, anion gap monitoring, The high probability of a clinically significant, sudden or life threatening deterioration of the [endocrine, renal, cardiac, pulmonary] system(s) required my full and direct attention, intervention and personal management. The aggregate critical care time was [65] minutes. This time is in addition to time spent performing reported procedures but includes the following: [x] Data Review and interpretation [x] Patient assessment and monitoring of vital signs [x] Documentation [x] Medication orders and management (2) Depression Current Visit: Yes Status: Chronic Qualifiers: Depression Type: D Major depression recurrence: M Active/Remission status : A Major depression episode severity: M Psychotic features: P Trimester: T Plan to address problem: Stable, Continue home medication, Pt denies HI/SI. (3) Hypertension Current Visit: No Status: Chronic Qualifiers: Hypertension type: H Plan to address problem: Monitor BP q shift, resume home medication. (4) Migraine headache Current Visit: No Status: Chronic Qualifiers: Migraine type: M Status migrainosus presence: S Intractability: I Plan to address problem: Stable, continue current therapy, NO active symptoms at time of exam. (5) DVT prophylaxis Current Visit: No Status: Acute
[2017-05-09] MEDS ORDERED: DULCOLAX PR PRN (19:38)
[2017-05-09] MEDS ORDERED: ALUM-MAG HYDROX-SIMETH 200-200-20MG/5ML PO PRN (19:38)
[2017-05-09] MEDS ORDERED: MILK OF MAGNESIA PO PRN (19:38)
[2017-05-09 19:43] LABS: Anion Gap 26 mmol/L; Sodium 126 mmol/L (137-145)
[2017-05-09 19:44] LABS: Potassium 5.2 mmol/L (3.6-5.0)
[2017-05-09 19:46] LABS: Glucose 543 mg/dL (65-100)
[2017-05-09] MEDS ORDERED: NACL 0.9% 1000 ML 1,000 ML ONE (20:30)
[2017-05-09] MEDS: NovoLIN R 100 UNITS in NACL 0.9% 99 ML IV SCH (21:00)
[2017-05-09 22:18] LABS: Blood Urea Nitrogen 16 mg/dL (7-17); Calcium 8.4 mg/dL (8.4-10.2); Carbon Dioxide 22 mmol/L (22-30); Chloride 94.1 mmol/L (98-107); Glucose 327 mg/dL (65-100); Magnesium 1.9 mg/dL (1.7-2.3); Phosphorous 3.1 mg/dL (2.5-4.5); Sodium 134 mmol/L (137-145)
[2017-05-09] MEDS: NACL 0.9% 1000 ML 1,000 ML IV SCH (22:20)
[2017-05-09 22:23] LABS: Anion Gap 23 mmol/L; Potassium 5.1 mmol/L (3.6-5.0)
[2017-05-10] MEDS: SINEquan PO SCH ×2 (00:36→23:53)
[2017-05-10 00:39] LABS: Blood Urea Nitrogen 14 mg/dL (7-17); Calcium 8.7 mg/dL (8.4-10.2); Carbon Dioxide 23 mmol/L (22-30); Chloride 95.9 mmol/L (98-107); Glucose 194 mg/dL (65-100)
[2017-05-10] MEDS: D5/0.45NS 1,000 ML IV SCH ×2 (00:47→09:00)
[2017-05-10 01:04] LABS: Anion Gap 21 mmol/L; Sodium 135 mmol/L (137-145)
[2017-05-10 01:05] LABS: Potassium 4.6 mmol/L (3.6-5.0)
[2017-05-10 03:44] LABS: Blood Urea Nitrogen 12 mg/dL (7-17); Calcium 8.2 mg/dL (8.4-10.2); Carbon Dioxide 19 mmol/L (22-30); Chloride 97.1 mmol/L (98-107); Glucose 225 mg/dL (65-100)
[2017-05-10 03:55] LABS: Blood Urea Nitrogen 12 mg/dL (7-17); Calcium 8.2 mg/dL (8.4-10.2); Carbon Dioxide 20 mmol/L (22-30); Chloride 98.1 mmol/L (98-107); Glucose 255 mg/dL (65-100)
[2017-05-10 04:16] LABS: Anion Gap 23 mmol/L; Potassium 4.1 mmol/L (3.6-5.0); Sodium 135 mmol/L (137-145)
[2017-05-10 04:20] LABS: Anion Gap 21 mmol/L; Potassium 4.1 mmol/L (3.6-5.0); Sodium 135 mmol/L (137-145)
--- NOTE | 2017-05-10 09:02 | Progress Note ---
Assessment and Plan Assessment and plan: Diabetic ketoacidosis. Blood glucose improving. Continue insulin drip. Anion gap still elevated. Repeat BMP in next few hours and if anion gap is closed will transition to subcutaneous insulin and transfer to medical floor. I discussed compliance. She ran out of Insulin and oral anti-diabetics for about 1 week. Diabetes mellitus type II. Glucose improving. Hyperkalemia, resolved. Hyponatremia. Will change to Normal saline Dehydration. Continue iv fluids Hypertension. BP stable. Verapamil on hold because BP on low side. DVT prophylaxis. Start Lovenox Full code status. History Interval history: nausea, polydipsia polyuria elevated glucose Hospitalist Physical - Physical exam Narrative exam: Gen Appearance: No acute distress HEENT: normocephalic, atraumatic Neck: supple, no JVD Lungs: Clear to auscultation bilaterally, no rales or wheeze Heart: S1 and S2 regular, no murmurs or gallop Abdomen: Soft non-tender, non-distended, normal bowel sounds Extremity: No edema, clubbing or cyanosis Neuro : Awake, alert, oriented x 3, moves all extremities - Constitutional Vitals: Temp Pulse Resp BP Pulse Ox 98.7 F 89 19 103/53 94 05/10/17 08:00 05/10/17 07:11 05/10/17 07:11 05/10/17 07:11 05/10/17 07:11 Results - Labs CBC & Chem 7: 05/09/17 16:43 05/10/17 20:02 Labs: Laboratory Last Values WBC 9.9 K/mm3 (4.5-11.0) 05/09/17 16:43 RBC 5.25 M/mm3 (3.65-5.03) H 05/09/17 16:43 Hgb 15.9 gm/dl (10.1-14.3) H 05/09/17 16:43 Hct 43.3 % (30.3-42.9) H 05/09/17 16:43 MCV 82 fl (79-97) 05/09/17 16:43 MCH 30 pg (28-32) 05/09/17 16:43 MCHC 37 % (30-34) H 05/09/17 16:43 RDW 14.8 % (13.2-15.2) 05/09/17 16:43 Plt Count 333 K/mm3 (140-440) 05/09/17 16:43 Lymph % (Auto) 31.3 % (13.4-35.0) 05/09/17 16:43 Wallace % (Auto) 4.0 % (0.0-7.3) 05/09/17 16:43 Eos % (Auto) 3.2 % (0.0-4.3) 05/09/17 16:43 Baso % (Auto) 0.9 % (0.0-1.8) 05/09/17 16:43 Lymph # 3.1 K/mm3 (1.2-5.4) 05/09/17 16:43 Wallace # 0.4 K/mm3 (0.0-0.8) 05/09/17 16:43 Eos # 0.3 K/mm3 (0.0-0.4) 05/09/17 16:43 Baso # 0.1 K/mm3 (0.0-0.1) 05/09/17 16:43 Seg Neutrophils % 60.6 % (40.0-70.0) 05/09/17 16:43 Seg Neutrophils # 6.0 K/mm3 (1.8-7.7) 05/09/17 16:43 VBG pH 7.285 (7.320-7.420) L 05/09/17 16:43 Sodium 135 mmol/L (137-145) L 05/10/17 03:06 Potassium 4.1 mmol/L (3.6-5.0) 05/10/17 03:06 Chloride 98.1 mmol/L (98-107) 05/10/17 03:06 Carbon Dioxide 20 mmol/L (22-30) L 05/10/17 03:06 Anion Gap 21 mmol/L 05/10/17 03:06 BUN 12 mg/dL (7-17) 05/10/17 03:06 Creatinine 0.3 mg/dL (0.7-1.2) L D 05/10/17 03:06 Estimated GFR > 60 ml/min 05/10/17 03:06 BUN/Creatinine Ratio 40.00 % 05/10/17 03:06 Glucose 255 mg/dL (65-100) H 05/10/17 03:06 POC Glucose 222 (70-105) H 05/10/17 07:14 Hemoglobin A1c 14.1 % (4-6) H 05/09/17 21:38 Calcium 8.2 mg/dL (8.4-10.2) L 05/10/17 03:06 Phosphorus 3.10 mg/dL (2.5-4.5) D 05/09/17 21:38 Magnesium 1.90 mg/dL (1.7-2.3) 05/09/17 21:38 Urine Color Straw (Yellow) 05/09/17 16:24 Urine Turbidity Clear (Clear) 05/09/17 16:24 Urine pH 5.0 (5.0-7.0) 05/09/17 16:24 Ur Specific [place] 1.018 (1.003-1.030) 05/09/17 16:24 Urine Protein <15 mg/dl mg/dL (Negative) 05/09/17 16:24 Urine Glucose (UA) >=500 mg/dL (Negative) 05/09/17 16:24 Urine Ketones 20 mg/dL (Negative) 05/09/17 16:24 Urine Blood Neg (Negative) 05/09/17 16:24 Urine Nitrite Neg (Negative) 05/09/17 16:24 Urine Bilirubin Neg (Negative) 05/09/17 16:24 Urine Urobilinogen < 2.0 mg/dL (<2.0) 05/09/17 16:24 Ur Leukocyte Esterase Neg (Negative) 05/09/17 16:24 Urine WBC (Auto) < 1.0 /HPF (0.0-6.0) 05/09/17 16:24 Urine RBC (Auto) 1.0 /HPF (0.0-6.0) 05/09/17 16:24 U Epithel Cells (Auto) < 1.0 /HPF (0-13.0) 05/09/17 16:24 Urine Mucus Few /HPF 05/09/17 16:24
[2017-05-10 11:43] LABS: Blood Urea Nitrogen 9 mg/dL (7-17); Calcium 8.5 mg/dL (8.4-10.2); Carbon Dioxide 22 mmol/L (22-30); Chloride 102.3 mmol/L (98-107); Glucose 217 mg/dL (65-100); Potassium 4.1 mmol/L (3.6-5.0)
[2017-05-10 13:13] LABS: Anion Gap 19 mmol/L; Sodium 139 mmol/L (137-145)
[2017-05-10] MEDS: NovoLIN R 100 UNITS in NACL 0.9% 99 ML IV SCH (13:38)
[2017-05-10 14:04] LABS: Anion Gap 17 mmol/L; BUN/Creatinine Ratio 23.33; Blood Urea Nitrogen 7 mg/dL (7-17); Calcium 8.3 mg/dL (8.4-10.2); Carbon Dioxide 22 mmol/L (22-30); Chloride 102.9 mmol/L (98-107); Glucose 228 mg/dL (65-100); Potassium 3.9 mmol/L (3.6-5.0); Sodium 138 mmol/L (137-145)
[2017-05-10] MEDS ORDERED: D50W (25GM) IV PRN (14:32)
[2017-05-10] MEDS: NOVOLOG SUB-Q SCH ×2 (18:00→23:48)
[2017-05-10 20:38] LABS: BUN/Creatinine Ratio 8.75; Blood Urea Nitrogen 7 mg/dL (7-17); Calcium 8.5 mg/dL (8.4-10.2); Carbon Dioxide 25 mmol/L (22-30); Glucose 280 mg/dL (65-100); Sodium 139 mmol/L (137-145)
[2017-05-10 20:47] LABS: Anion Gap 17 mmol/L; Potassium 4.9 mmol/L (3.6-5.0)
[2017-05-10] MEDS ORDERED: INSULIN GLARGINE 75 UNIT SUB-Q SCH (22:00)
[2017-05-10] MEDS: SOMA PO SCH (23:47)
[2017-05-10] MEDS: FIORICET PO PRN (23:47)
[2017-05-10] MEDS: LEVEMIR SUB-Q SCH (23:53)
[2017-05-11] MEDS: NACL 0.9% 1000 ML 1,000 ML IV SCH ×4 (00:03→16:32)
[2017-05-11 05:29] LABS: Hematocrit 37.3 % (30.3-42.9); Hemoglobin 12.5 gm/dl (10.1-14.3); Mean Corpuscular HGB Conc 34 % (30-34); Mean Corpuscular Hemoglobin 27 pg (28-32); Mean Corpuscular Volume 80 fl (79-97); Platelet Count 176 K/mm3 (140-440); Red Blood Count 4.66 M/mm3 (3.65-5.03); Red Cell Distribution Width 15.1 % (13.2-15.2)
[2017-05-11 05:48] LABS: Blood Urea Nitrogen 6 mg/dL (7-17); Calcium 8.3 mg/dL (8.4-10.2); Carbon Dioxide 22 mmol/L (22-30); Chloride 103.8 mmol/L (98-107); Glucose 228 mg/dL (65-100); Sodium 140 mmol/L (137-145)
[2017-05-11 06:03] LABS: Anion Gap 18 mmol/L; Potassium 3.3 mmol/L (3.6-5.0)
[2017-05-11] MEDS: NOVOLOG SUB-Q SCH ×5 (08:24→22:14)
[2017-05-11] MEDS ORDERED: K-DUR PO ONE (09:23)
--- NOTE | 2017-05-11 09:28 | Discharge Summary ---
Providers - Providers Date of Admission: 05/09/17 19:38 Date of discharge: 05/12/17 Attending physician: TC PURCELL MD 05/10/17 02:57 Consult to Wound/ET Nurse [CONS] Routine Reason For Exam: Right great toe ulcer Primary care physician: [employer] Hospitalization Reason for admission: DKA Condition: Stable Hospital course: 51 YO Female with DM, HTN, Migraine MARTINEZ, Depression, presents to ED for evaluation. Pt states that she ran out of her diabetes medication 1 week ago, and for the past week she has experienced poldipsia, polyuria. Pt was seen by PCP and found to have elevated serum glucose. Pt instructed to f/u in ED. Pt seen and evaluated in ED and found to have DKA. Pt initiated on DKA jprotocol, and transferred to ICU. Abnormal resolution of DKA patient was sent to the floor. She's had multiple admissions to this hospital due to poorly controlled diabetes. She has been noted make several $700 a month and a useful $400 to pay for right. And because of this she Runs out of money also by her medications. She reports that she is currently working on a disability package for herself as she is unable to work. She has a right toe poorly healing wound which she states has been chronic and intermittently drains. Pt denies fever, chills, confusion, chest pain, cough, diaphoresis, loss of appetite, malaise, nausea/vomiting, shortness of breath, syncope, weakness, or recent ill contacts. Diabetic ketoacidosis. Patient has had multiple admissions in respect to this. She ran out of her medication due to financial reasons. She understands the consequences of uncontrolled diabetes mellitus. We will also encouraged her to fill out financial paperwork. She states that she is currently working on disability. She is clinically stable at this time of discharge patient was treated with DKA protocol and restarted on her prescriptions with prescriptions provided. I Diabetes mellitus type II. UPPER EXT PARASTHESIA-no evidence of CVA. Symptoms resolved.Hyperkalemia, resolved. Poor healing diabetic wound at the right hallux: Present on admission measures 1.5X0.5X0.3 wound care did see the patient recommendation for outpatient follow- up of the wound care clinic. Hyponatremia Dehydration. Hypertension. . Disposition: DC-30 STILL A PATIENT Time spent for discharge: 35 MINS Core Measure Documentation - Palliative Care Palliative Care/ Comfort Measures: Not Applicable - Core Measures Any of the following diagnoses?: none - VTE Discharge Requirements Deep Vein Thrombosis/Pulmonary Embolism Present on Admission: No Exam - Physical Exam Narrative exam: GENERAL: The patient appeared well nourished and normally developed. Vital signs as documented. HEAD: No signs of head trauma. EYES: Pupils are equal. Extraocular motions intact. EARS: Hearing grossly intact. MOUTH: Oropharynx is normal. NECK: No adenopathy, no JVD. CHEST: Chest with clear breath sounds bilaterally. No wheezes, rales, or rhonchi. CARDIAC: Regular rate and rhythm. S1 and S2, without murmurs, gallops, or rubs. VASCULAR: No Edema. Peripheral pulses normal and equal in all extremities. ABDOMEN: Soft, without detectable tenderness. No sign of distention. No rebound or guarding, and no masses palpated. Bowel Sounds normal. MUSCULOSKELETAL: Good range of motion of all major joints. Extremities without clubbing, cyanosis or edema. NEUROLOGIC EXAM: Alert and oriented x 3. No focal sensory or strength deficits. Speech normal. Follows commands. PSYCHIATRIC: Mood normal. SKIN: Right toe crusting ulcerated wound noted mild drainage. - Constitutional Vitals: Temp Pulse Resp BP Pulse Ox 98 F 86 18 103/58 94 05/11/17 08:00 05/11/17 08:00 05/11/17 08:00 05/11/17 08:00 05/11/17 08:00 Plan Activity: advance as tolerated, fall precautions Diet: diabetic Special Instructions: record daily BP diary, record blood sugar diary Additional Instructions: Follow with PCP or at the [facility]. Discuss with PCP need for ACEI or ARB type medication for renal protection in diabetic patient. yearly eye and feet exam strongly recommended. Follow up at the wound care center in 3-5 days Follow up with: PRIMARY CARE, [Primary Care Provider] - 3-5 Days Prescriptions: Insulin Glargine [Lantus VIAL] 50 unit SUB-Q QHS 30 Days Amoxicillin/K Clav Tab [Augmentin 875 mg] 1 tab PO Q12HR #10 tab Insulin NPH/Regular [NovoLIN 70/30] 35 unit SQ BIDDIAB #100 ml Metformin HCl [Metformin HCl ER] 750 mg PO BID #30 tab.er.24h
[2017-05-11] MEDS: SOMA PO SCH ×2 (10:46→22:11)
[2017-05-11] MEDS: LOVENOX SUB-Q SCH (10:47)
--- NOTE | 2017-05-11 12:38 | Cat Scan Report ---
CT scan of head without contrast: History: Rule out stroke. Findings: Ventricles are normal in size and midline in location. No evidence of acute ischemia, hemorrhage or mass. No extra axial fluid collection. Normal brainstem and cerebellum. Normal sinuses and mastoid cells. Impression: Essentially negative CT scan of head.
[2017-05-11] MEDS: FIORICET PO PRN (14:43)
--- NOTE | 2017-05-11 15:01 | Progress Note ---
Assessment and Plan Assessment and plan: 51 YO Female with DM, HTN, Migraine MARTINEZ, Depression, presents to ED for evaluation. Pt states that she ran out of her diabetes medication 1 week ago, and for the past week she has experienced poldipsia, polyuria. Pt was seen by PCP and found to have elevated serum glucose. Pt instructed to f/u in ED. Pt seen and evaluated in ED and found to have DKA. Pt initiated on DKA jprotocol, and transferred to ICU. Abnormal resolution of DKA patient was sent to the floor. She's had multiple admissions to this hospital due to poorly controlled diabetes. She has been noted make several $700 a month and a useful $400 to pay for right. And because of this she Runs out of money also by her medications. She reports that she is currently working on a disability package for herself as she is unable to work. She has a right toe poorly healing wound which she states has been chronic and intermittently drains. Pt denies fever, chills, confusion, chest pain, cough, diaphoresis, loss of appetite, malaise, nausea/vomiting, shortness of breath, syncope, weakness, or recent ill contacts. Diabetic ketoacidosis. Blood glucose improving. Transition to pretibial and basal insulin. Patient not be managed on the floor. Extensive counseling provided in regards to compliance. She ran out of Insulin and oral anti- diabetics for about 1 week. Diabetes mellitus type II. Glucose improving. UPPER EXT PARASTHESIA- LEFT. started 2 days ago but patient states she did not tell anyone till today. CT brain obtained, no evidence of CVA. likely seoncondary to neuropathy,. will start neurontin Hyperkalemia, resolved. Poor healing diabetic wound at the right hallux: wound care consult. xray to eval for osteomylitis, I have provided extensive counselling to the patient about possible ampuation if wound not cared for. This is chronic and she verbalized that she has been advised to go to wound care but has been unable to. Hyponatremia. Continue normal saline. Dehydration. Continue iv fluids Hypertension. BP stable. Verapamil on hold because BP on low side. DVT prophylaxis. Start Lovenox Full code status. Hospitalist Physical - Constitutional Vitals: Temp Pulse Resp BP Pulse Ox 98 F 86 18 103/58 94 05/11/17 08:00 05/11/17 08:00 05/11/17 08:00 05/11/17 08:00 05/11/17 08:00 General appearance: Present: mild distress Results - Labs CBC & Chem 7: 05/11/17 04:44 05/11/17 04:44 Labs: Laboratory Last Values WBC 6.0 K/mm3 (4.5-11.0) 05/11/17 04:44 RBC 4.66 M/mm3 (3.65-5.03) 05/11/17 04:44 Hgb 12.5 gm/dl (10.1-14.3) D 05/11/17 04:44 Hct 37.3 % (30.3-42.9) D 05/11/17 04:44 MCV 80 fl (79-97) 05/11/17 04:44 MCH 27 pg (28-32) L 05/11/17 04:44 MCHC 34 % (30-34) 05/11/17 04:44 RDW 15.1 % (13.2-15.2) 05/11/17 04:44 Plt Count 176 K/mm3 (140-440) 05/11/17 04:44 Lymph % (Auto) 31.3 % (13.4-35.0) 05/09/17 16:43 [place] % (Auto) 4.0 % (0.0-7.3) 05/09/17 16:43 Eos % (Auto) 3.2 % (0.0-4.3) 05/09/17 16:43 Baso % (Auto) 0.9 % (0.0-1.8) 05/09/17 16:43 Lymph # 3.1 K/mm3 (1.2-5.4) 05/09/17 16:43 [place] # 0.4 K/mm3 (0.0-0.8) 05/09/17 16:43 Eos # 0.3 K/mm3 (0.0-0.4) 05/09/17 16:43 Baso # 0.1 K/mm3 (0.0-0.1) 05/09/17 16:43 Seg Neutrophils % 60.6 % (40.0-70.0) 05/09/17 16:43 Seg Neutrophils # 6.0 K/mm3 (1.8-7.7) 05/09/17 16:43 VBG pH 7.285 (7.320-7.420) L 05/09/17 16:43 Sodium 140 mmol/L (137-145) 05/11/17 04:44 Potassium 3.3 mmol/L (3.6-5.0) L D 05/11/17 04:44 Chloride 103.8 mmol/L (98-107) 05/11/17 04:44 Carbon Dioxide 22 mmol/L (22-30) 05/11/17 04:44 Anion Gap 18 mmol/L 05/11/17 04:44 BUN 6 mg/dL (7-17) L 05/11/17 04:44 Creatinine 0.4 mg/dL (0.7-1.2) L 05/11/17 04:44 Estimated GFR > 60 ml/min 05/11/17 04:44 BUN/Creatinine Ratio 15.00 % 05/11/17 04:44 Glucose 228 mg/dL (65-100) H 05/11/17 04:44 POC Glucose 211 (70-105) H 05/11/17 11:41 Hemoglobin A1c 14.1 % (4-6) H 05/09/17 21:38 Calcium 8.3 mg/dL (8.4-10.2) L 05/11/17 04:44 Phosphorus 3.10 mg/dL (2.5-4.5) D 05/09/17 21:38 Magnesium 1.90 mg/dL (1.7-2.3) 05/09/17 21:38 Urine Color Straw (Yellow) 05/09/17 16:24 Urine Turbidity Clear (Clear) 05/09/17 16:24 Urine pH 5.0 (5.0-7.0) 05/09/17 16:24 Ur Specific [place] 1.018 (1.003-1.030) 05/09/17 16:24 Urine Protein <15 mg/dl mg/dL (Negative) 05/09/17 16:24 Urine Glucose (UA) >=500 mg/dL (Negative) 05/09/17 16:24 Urine Ketones 20 mg/dL (Negative) 05/09/17 16:24 Urine Blood Neg (Negative) 05/09/17 16:24 Urine Nitrite Neg (Negative) 05/09/17 16:24 Urine Bilirubin Neg (Negative) 05/09/17 16:24 Urine Urobilinogen < 2.0 mg/dL (<2.0) 05/09/17 16:24 Ur Leukocyte Esterase Neg (Negative) 05/09/17 16:24 Urine WBC (Auto) < 1.0 /HPF (0.0-6.0) 05/09/17 16:24 Urine RBC (Auto) 1.0 /HPF (0.0-6.0) 05/09/17 16:24 U Epithel Cells (Auto) < 1.0 /HPF (0-13.0) 05/09/17 16:24 Urine Mucus Few /HPF 05/09/17 16:24
[2017-05-11] MEDS: LEVEMIR SUB-Q SCH (22:10)
[2017-05-11] MEDS: SINEquan PO SCH (22:11)
--- NOTE | 2017-05-11 22:11 | XRay Report ---
FINAL REPORT EXAM: XR FOOT 2V RT HISTORY: right toe wound eval for osteomyelitis TECHNIQUE: AP and lateral portable views of the right foot PRIORS: None. FINDINGS: There is no evidence for acute fracture or dislocation. There is mild skin irregularity involving the plantar surface of the great toe which may be consistent with the known wound. No radiopaque foreign bodies are seen. Bony mineralization is normal. Joint spaces are maintained. Small spur off the plantar aspect of the calcaneus is seen. No radiographic evidence for osteomyelitis is seen. IMPRESSION: No acute bony abnormality noted. No radiographic evidence for osteomyelitis.
[2017-05-12] MEDS: NACL 0.9% 1000 ML 1,000 ML IV SCH (03:28)
[2017-05-12 07:33] VITALS: BP 120/57
[2017-05-12] MEDS: NOVOLOG SUB-Q SCH ×2 (08:27→12:49)
[2017-05-12] MEDS: LOVENOX SUB-Q SCH (10:57)
[2017-05-12] MEDS: SOMA PO SCH (10:57)
[2017-05-12] MEDS ORDERED: TRIPLE ANTIBIOTIC TP SCH (14:00)
== END 2017-05-12 16:05 | disposition home or self-care (01) | DRG 638 ==
LOC: ED 15:42 → CC1 19:38 → 3A 05-10 21:07
PROVIDERS: ADMIT Internal Medicine; ATTEND Internal Medicine
PROC: 3E0234Z Introduction of Serum, Toxoid and Vaccine into Muscle, Percutaneous Approach (ICD-10-PCS; principal; 2017-05-09)
DX: E13.10 Other specified diabetes mellitus with ketoacidosis without coma (principal); E87.1 Hypo-osmolality and hyponatremia; I10 Essential (primary) hypertension; E87.5 Hyperkalemia; G89.29 Other chronic pain; F32.9 Major depressive disorder, single episode, unspecified; Z98.51 Tubal ligation status; Z83.3 Family history of diabetes mellitus; Z82.49 Family history of ischemic heart disease and other diseases of the circulatory system; Z88.8 Allergy status to other drugs, medicaments and biological substances; E86.0 Dehydration; Z90.49 Acquired absence of other specified parts of digestive tract; G43.909 Migraine, unspecified, not intractable, without status migrainosus; Z71.89 Other specified counseling; S91.301A Unspecified open wound, right foot, initial encounter; E11.628 Type 2 diabetes mellitus with other skin complications; Z23 Encounter for immunization
CPT/HCPCS: 36415; 70450; 80048; 81001; 82805; 82962; 83036; 83735; 84100; 85025; 85027; 93005; 93010; 96360; 96361; 99291; A6250; J0610; J1650; J1815; J1818; J7030

== ENCOUNTER 2017-09-09 05:36 | Inpatient (IN) | payer OTHER ==
[2017-09-09 06:22] LABS: Basophils % (Auto) 0.5 % (0.0-1.8); Eosinophils % (Auto) 1.9 % (0.0-4.3); Hematocrit 42.1 % (30.3-42.9); Hemoglobin 14.7 gm/dl (10.1-14.3); Mean Corpuscular HGB Conc 35 % (30-34); Mean Corpuscular Hemoglobin 28 pg (28-32); Mean Corpuscular Volume 81 fl (79-97); Platelet Count 299 K/mm3 (140-440); Red Blood Count 5.23 M/mm3 (3.65-5.03); Red Cell Distribution Width 14.5 % (13.2-15.2); White Blood Count 9.6 K/mm3 (4.5-11.0)
--- NOTE | 2017-09-09 06:22 | XRay Report ---
FINAL REPORT EXAM: XR FOOT 3+V LT HISTORY: swelling, redness, pain and drainage from L toes TECHNIQUE: Three views of the left foot were submitted. FINDINGS: There is severe arthritic changes of the interphalangeal joint of the great toe with marginal spurring medially. There are no erosive changes that would suggest osteomyelitis at this time. There is no evidence of fracture or soft tissue injury. The lateral view reveals small spurs along the posterior and plantar margin of the calcaneus. IMPRESSION: Severe arthritic changes of the interphalangeal joint of the great toe. No evidence of osteomyelitis otherwise. MRI of the foot is recommended for better evaluation for occult osteomyelitis. Calcaneal spurs.
[2017-09-09 06:39] LABS: Anion Gap 23 mmol/L; BUN/Creatinine Ratio 24; Blood Urea Nitrogen 12 mg/dL (7-17); Calcium 9.8 mg/dL (8.4-10.2); Carbon Dioxide 26 mmol/L (22-30); Chloride 84.6 mmol/L (98-107); Potassium 4.9 mmol/L (3.6-5.0); Sodium 129 mmol/L (137-145)
[2017-09-09 07:04] LABS: Glucose 603 mg/dL (65-100)
[2017-09-09] MEDS ORDERED: VANCOMYCIN/NS 1 GM/250 ML 1 GM/250 ML BAG IV ONE (14:39)
[2017-09-09] MEDS ORDERED: BOOSTRIX IM ONE (14:49)
--- NOTE | 2017-09-09 15:25 | Emergency Department Report ---
ED Extremity Problem HPI - General Chief complaint: Extremity Problem,Nontraumatic Stated complaint: BLISTERS ON TOES Time Seen by Provider: 09/09/17 14:29 Source: patient Mode of arrival: Ambulatory Limitations: No Limitations - History of Present Illness Initial comments: 51-year-old female with a past medical history of diabetes (insulin and pills), and hypertension presents to the hospital complains of left foot infection 3 days. Patient initially noticed redness to her second, third, and fourth toes of her left foot. Now redness is spreading to the fifth toe and distal dorsum foot. 2 days ago patient noted dark discoloration to the second, third, and fourth toes. The patient has been on Keflex for a sinus infection the last 5 days. She complains of subjective fever and chills and elevated blood sugars. Patient has chronic neuropathy and states she does not have any pain. Tetanus is seemed greater than 10 years ago. Severity scale (0 -10): 0 - Related Data Home Medications Medication Instructions Recorded Confirmed Last Taken Carisoprodol [Soma] 350 mg PO BID 03/22/16 09/09/17 09/08/17 Doxepin [SINEquan] 200 mg PO QHS 05/09/17 09/09/17 09/08/17 Glimepiride [Amaryl] 4 mg PO BID 05/09/17 09/09/17 09/08/17 Verapamil HCl [Verelan] 360 mg PO QDAY 05/09/17 09/09/17 09/08/17 Cephalexin [Keflex] 500 mg PO QID 09/09/17 09/09/17 09/08/17 Insulin Lispro [Humalog 100 50 units SUB-Q BID 09/09/17 09/09/17 09/08/17 UNITS/ML Kwikpen] Metformin HCl 1,000 mg PO BID 09/09/17 09/09/17 09/08/17 Previous Rx's Medication Instructions Recorded Last Taken Type Butalb/Acetamin/Caff 50-325-40 1 each PO Q4H PRN #30 tablet 03/27/16 09/08/17 Rx [Fioricet] Allergies Allergy/AdvReac Type Severity Reaction Status Date / Time meperidine HCl [From Demerol] Allergy Unknown Verified 05/09/17 16:15 ED Review of Systems ROS: Stated complaint: BLISTERS ON TOES Other details as noted in HPI Comment: All other systems reviewed and negative Other: Constitutional: No fevers chills Eyes: No eye pain visual changes ENT: No ear pain or throat pain Neck: Denies pain Respiratory: Denies cough wheezing shortness of breath Cardiovascular: Denies chest pain, palpitations, syncope GI: Denies abdominal pain, nausea, vomiting, diarrhea : Denies dysuria Musculoskeletal: as per hpi Skin: as per hpi Neurologic: Denies headache Psychiatric: Denies suicidal ideation, hallucinations ED Past Medical Hx - Past Medical History Hx Hypertension: Yes Hx Congestive Heart Failure: No Hx Diabetes: Yes Hx Headaches / Migraines: Yes Hx Psychiatric Treatment: Yes (depression) Hx Asthma: No Hx COPD: No - Surgical History Past Surgical History?: No Hx Cholecystectomy: Yes Additional Surgical History: TUBAL LIGATION - Social History Smoking Status: Never Smoker Substance Use Type: None - Medications Home Medications: Home Medications Medication Instructions Recorded Confirmed Last Taken Type Carisoprodol [Soma] 350 mg PO BID 03/22/16 09/09/17 09/08/17 History Butalb/Acetamin/Caff 50-325-40 1 each PO Q4H PRN #30 tablet 03/27/16 09/09/17 Rx [Fioricet] Doxepin [SINEquan] 200 mg PO QHS 05/09/17 09/09/17 09/08/17 History Glimepiride [Amaryl] 4 mg PO BID 05/09/17 09/09/17 09/08/17 History Verapamil HCl [Verelan] 360 mg PO QDAY 05/09/17 09/09/17 09/08/17 History Cephalexin [Keflex] 500 mg PO QID 09/09/17 09/09/17 09/08/17 History Insulin Lispro [Humalog 100 50 units SUB-Q BID 09/09/17 09/09/17 09/08/17 History UNITS/ML Kwikpen] Metformin HCl 1,000 mg PO BID 09/09/17 09/09/17 09/08/17 History ED Physical Exam - General Limitations: No Limitations - Other Other exam information: General: No limitations, patient is alert in no acute distress Head exam: Atraumatic, normocephalic Eyes exam: Normal appearance ENT: Moist mucous membrane, normal oropharynx Neck exam: Normal inspection, full range of motion, no meningismus nontender Respiratory exam: Clear to auscultation bilateral, no wheezes, rales, crackles, no respiratory distress or tachypnea noted Cardiovascular: Normal rate and rhythm, normal heart sounds Abdomen: Soft, nondistended, and nontender, with normal bowel sounds, no rebound, or guarding Extremity: Erythema to the left foot at the second, third, fourth, and medial fifth toe. Redness extending to the distal dorsum foot. Necrotic dark skin discoloration of the pulp of the second, third, and fourth toes. Full range of motion. 2+ DP pulses equal bilaterally. Back: Normal Inspection, full range of motion, no tenderness Neurologic: Alert, oriented x3, cranial nerves intact, no motor or sensory deficit Psychiatric: normal affect, normal mood Skin: Warm, dry, intact ED Course Vital Signs 09/09/17 09/09/17 09/09/17 05:45 12:33 13:11 Temperature 98.3 F Pulse Rate 127 H 111 H Respiratory 17 20 Rate Blood Pressure 142/73 Blood Pressure 129/77 [Left] O2 Sat by Pulse 96 100 96 Oximetry - Reevaluation(s) Reevaluation #1: 09/09/17 15:57 Tetanus, vancomycin, and insulin given ED Medical Decision Making - Lab Data Result diagrams: 09/09/17 05:59 09/09/17 05:59 Lab Results 09/09/17 09/09/17 09/09/17 Range/Units 05:59 05:59 05:59 WBC 9.6 (4.5-11.0) K/mm3 RBC 5.23 H (3.65-5.03) M/mm3 Hgb 14.7 H (10.1-14.3) gm/dl Hct 42.1 (30.3-42.9) % MCV 81 (79-97) fl MCH 28 (28-32) pg MCHC 35 H (30-34) % RDW 14.5 (13.2-15.2) % Plt Count 299 (140-440) K/mm3 Lymph % (Auto) 16.5 (13.4-35.0) % [place] % (Auto) 4.1 (0.0-7.3) % Eos % (Auto) 1.9 (0.0-4.3) % Baso % (Auto) 0.5 (0.0-1.8) % Lymph # 1.6 (1.2-5.4) K/mm3 [place] # 0.4 (0.0-0.8) K/mm3 Eos # 0.2 (0.0-0.4) K/mm3 Baso # 0.0 (0.0-0.1) K/mm3 Seg Neutrophils % 77.0 H (40.0-70.0) % Seg Neutrophils # 7.4 (1.8-7.7) K/mm3 Sodium 129 L (137-145) mmol/L Potassium 4.9 (3.6-5.0) mmol/L Chloride 84.6 L (98-107) mmol/L Carbon Dioxide 26 (22-30) mmol/L Anion Gap 23 mmol/L BUN 12 (7-17) mg/dL Creatinine 0.5 L (0.7-1.2) mg/dL Estimated GFR > 60 ml/min BUN/Creatinine Ratio 24 % Glucose 603 H* (65-100) mg/dL POC Glucose (70-105) Lactic Acid 1.80 (0.7-2.0) mmol/L Calcium 9.8 (8.4-10.2) mg/dL 09/09/17 09/09/17 09/09/17 Range/Units 06:13 11:12 12:59 WBC (4.5-11.0) K/mm3 RBC (3.65-5.03) M/mm3 Hgb (10.1-14.3) gm/dl Hct (30.3-42.9) % MCV (79-97) fl MCH (28-32) pg MCHC (30-34) % RDW (13.2-15.2) % Plt Count (140-440) K/mm3 Lymph % (Auto) (13.4-35.0) % [place] % (Auto) (0.0-7.3) % Eos % (Auto) (0.0-4.3) % Baso % (Auto) (0.0-1.8) % Lymph # (1.2-5.4) K/mm3 [place] # (0.0-0.8) K/mm3 Eos # (0.0-0.4) K/mm3 Baso # (0.0-0.1) K/mm3 Seg Neutrophils % (40.0-70.0) % Seg Neutrophils # (1.8-7.7) K/mm3 Sodium (137-145) mmol/L Potassium (3.6-5.0) mmol/L Chloride (98-107) mmol/L Carbon Dioxide (22-30) mmol/L Anion Gap mmol/L BUN (7-17) mg/dL Creatinine (0.7-1.2) mg/dL Estimated GFR ml/min BUN/Creatinine Ratio % Glucose (65-100) mg/dL POC Glucose 420 H 436 H (70-105) Lactic Acid 1.20 (0.7-2.0) mmol/L Calcium (8.4-10.2) mg/dL 09/09/17 Range/Units 14:54 WBC (4.5-11.0) K/mm3 RBC (3.65-5.03) M/mm3 Hgb (10.1-14.3) gm/dl Hct (30.3-42.9) % MCV (79-97) fl MCH (28-32) pg MCHC (30-34) % RDW (13.2-15.2) % Plt Count (140-440) K/mm3 Lymph % (Auto) (13.4-35.0) % [place] % (Auto) (0.0-7.3) % Eos % (Auto) (0.0-4.3) % Baso % (Auto) (0.0-1.8) % Lymph # (1.2-5.4) K/mm3 [place] # (0.0-0.8) K/mm3 Eos # (0.0-0.4) K/mm3 Baso # (0.0-0.1) K/mm3 Seg Neutrophils % (40.0-70.0) % Seg Neutrophils # (1.8-7.7) K/mm3 Sodium (137-145) mmol/L Potassium (3.6-5.0) mmol/L Chloride (98-107) mmol/L Carbon Dioxide (22-30) mmol/L Anion Gap mmol/L BUN (7-17) mg/dL Creatinine (0.7-1.2) mg/dL Estimated GFR ml/min BUN/Creatinine Ratio % Glucose (65-100) mg/dL POC Glucose 334 H (70-105) Lactic Acid (0.7-2.0) mmol/L Calcium (8.4-10.2) mg/dL - Radiology Data Radiology results: report reviewed Left foot x-ray: Severe arthritic changes in and the interphalangeal joint of the great toe. No evidence of osteomyelitis. MRI recommended for occult osteomyelitis. Calcaneal spurs - Medical Decision Making Patient requires admission to the hospital for diabetic foot infection. Vancomycin order to cover MRSA and possible a cellulitis. Hospitalist informed. - Differential Diagnosis cellulitis, osteomyelitis Critical Care Time: No Critical care attestation.: If time is entered above; I have spent that time in minutes in the direct care of this critically ill patient, excluding procedure time. ED Disposition Clinical Impression: Diabetic foot infection, Uncontrolled diabetes mellitus, Necrotic toes Disposition: OP ADMIT IP TO THIS HOSP Is pt being admited?: Yes Condition: Stable Time of Disposition: 15:25 (Dr Zavala/hosp)
--- NOTE | 2017-09-09 16:18 | History and Physical Report ---
History of Present Illness Date of examination: 09/09/17 Date of admission: 09/09/2017 Chief complaint: Left foot redness, redness and black discoloration of 2nd,3rd and 4th toes History of present illness: Patient is 51-year-old with history of hypertension, diabetes. She presents with a three-day history of redness of the left foot with swelling. She states it started with swelling of the left foot following by blisters on 2nd, 3rd, and 4th toes. This was then followed by redness, ulcers and now black discoloration on underside of 2nd ,3rd and 4th toes. She denies any trauma. No fever. Started on IV antibiotics and will admit for further management. Past History Past Medical History: diabetes, hypertension, other (depression) Past Surgical History: cholecystectomy, Other (Tubal ligation) Social history: , full code. denies: smoking, alcohol abuse Family history: CAD, diabetes, stroke Medications and Allergies Allergies Allergy/AdvReac Type Severity Reaction Status Date / Time meperidine HCl [From Demerol] Allergy Unknown Verified 05/09/17 16:15 Home Medications Medication Instructions Recorded Confirmed Last Taken Type Carisoprodol [Soma] 350 mg PO BID 03/22/16 09/09/17 09/08/17 History Butalb/Acetamin/Caff 50-325-40 1 each PO Q4H PRN #30 tablet 03/27/16 09/09/17 Rx [Fioricet] Doxepin [SINEquan] 200 mg PO QHS 05/09/17 09/09/17 09/08/17 History Glimepiride [Amaryl] 4 mg PO BID 05/09/17 09/09/17 09/08/17 History Verapamil HCl [Verelan] 360 mg PO QDAY 05/09/17 09/09/17 09/08/17 History Cephalexin [Keflex] 500 mg PO QID 09/09/17 09/09/17 09/08/17 History Insulin Lispro [Humalog 100 50 units SUB-Q BID 09/09/17 09/09/17 09/08/17 History UNITS/ML Kwikpen] Metformin HCl 1,000 mg PO BID 09/09/17 09/09/17 09/08/17 History Review of Systems All systems: negative (chest pain, no shortness of breath, no fever, no abdominal pain, no diarrhea, no urinary symptoms. All other systems reviewed and are negative) Exam - Physical Exam Narrative exam: GEN APPEARANCE : Not in acute distress, obese HEENT: Normocephalic Atraumatic NECK : Supple, no JVD LUNGS: Clear to auscultation bilaterally, no rales, no wheeze HEART: S1 and S2 regular, no murmurs, rubs or gallop ABD: Soft, no tenderness, no distension, normal bowel sounds EXT: Swollen and erythematous left foot. Ulcers 2nd,3rd,and 4th toes with black areas suggesting gangrene NEURO: Awake,alert,oriented x 3, no facial asymmetry, no focal signs - Constitutional Vitals: Temp Pulse Resp BP Pulse Ox 98.3 F 110 H 23 104/56 96 09/09/17 05:45 09/09/17 15:56 09/09/17 15:56 09/09/17 15:56 09/09/17 15:56 Results - Labs CBC & Chem 7: 09/09/17 05:59 09/09/17 05:59 Labs: Abnormal lab results 09/09/17 09/09/17 09/09/17 Range/Units 05:59 05:59 06:13 RBC 5.23 H (3.65-5.03) M/mm3 Hgb 14.7 H (10.1-14.3) gm/dl MCHC 35 H (30-34) % Seg Neutrophils % 77.0 H (40.0-70.0) % Sodium 129 L (137-145) mmol/L Chloride 84.6 L (98-107) mmol/L Creatinine 0.5 L (0.7-1.2) mg/dL Glucose 603 H* (65-100) mg/dL POC Glucose 420 H (70-105) 09/09/17 09/09/17 Range/Units 11:12 14:54 RBC (3.65-5.03) M/mm3 Hgb (10.1-14.3) gm/dl MCHC (30-34) % Seg Neutrophils % (40.0-70.0) % Sodium (137-145) mmol/L Chloride (98-107) mmol/L Creatinine (0.7-1.2) mg/dL Glucose (65-100) mg/dL POC Glucose 436 H 334 H (70-105) Assessment and Plan Diabetic foot infection with cellulitis with gangrene left second third and fourth toes. Admit to medical floor. Start Zosyn iv, start vancomycin IV. Consult ID physician. We'll also consult vascular surgery to evaluate because of gangrene. Hypertension.Blood pressure stable. Hyponatremia. Likely spurious due to hyperglycemia. Recheck in am Diabetes mellitus type II with hyperglycemia. Blood glucose was 603 on admission , now down to 334. Start Novolin 70/30 twice a day. DVT prophylaxis with heparin Full CODE STATUS
[2017-09-09] MEDS ORDERED: TYLENOL PO PRN (16:42)
[2017-09-09] MEDS ORDERED: MILK OF MAGNESIA PO PRN (16:42)
[2017-09-09] MEDS ORDERED: DULCOLAX PR PRN (16:42)
[2017-09-09] MEDS ORDERED: VANCOMYCIN VIAL IV ONE (16:49)
[2017-09-09] MEDS ORDERED: VANCOMYCIN PHARMACY TO DOSE IV SCH (17:00)
[2017-09-09] MEDS ORDERED: D50W (25GM) Syringe IV PRN (17:26)
[2017-09-09] MEDS ORDERED: VANCOMYCIN 1,500 MG in NACL 0.9% 500 ML 500 ML IV SCH (17:30)
[2017-09-09] MEDS: ZOFRAN IV PRN (17:50)
[2017-09-09] MEDS: FIORICET PO PRN (17:50)
[2017-09-09] MEDS: NACL 0.9% 1000 ML 1,000 ML IV SCH (18:31)
[2017-09-09] MEDS ORDERED: D50W (25GM) Vial IV PRN (19:11)
[2017-09-10] MEDS: NOVOLOG SUB-Q SCH ×5 (00:58→22:37)
[2017-09-10] MEDS: ZOSYN/NS 4.5GM/100ML 4.5 GM/100 ML VIAL IV SCH ×5 (01:01→22:20)
[2017-09-10] MEDS: SINEquan PO SCH ×2 (01:03→22:21)
[2017-09-10] MEDS: AMARYL PO SCH ×3 (01:04→22:22)
[2017-09-10] MEDS: HEPARIN SUB-Q SCH ×4 (01:05→22:22)
[2017-09-10] MEDS: SOMA PO SCH ×3 (01:20→22:22)
[2017-09-10] MEDS: ROBITUSSIN PO PRN ×2 (01:22→20:48)
[2017-09-10] MEDS: VANCOMYCIN 1,250 MG in NACL 0.9% 250ML 250 ML IV SCH ×2 (04:29→17:36)
[2017-09-10 06:41] LABS: Basophils % (Auto) 0.5 % (0.0-1.8); Hematocrit 35.3 % (30.3-42.9); Hemoglobin 11.8 gm/dl (10.1-14.3); Mean Corpuscular HGB Conc 34 % (30-34); Mean Corpuscular Hemoglobin 27 pg (28-32); Mean Corpuscular Volume 80 fl (79-97); Platelet Count 216 K/mm3 (140-440); Red Blood Count 4.41 M/mm3 (3.65-5.03); Red Cell Distribution Width 14.6 % (13.2-15.2); White Blood Count 6.9 K/mm3 (4.5-11.0)
[2017-09-10 07:00] LABS: Anion Gap 16 mmol/L; BUN/Creatinine Ratio 14; Blood Urea Nitrogen 7 mg/dL (7-17); Calcium 8.5 mg/dL (8.4-10.2); Carbon Dioxide 27 mmol/L (22-30); Chloride 101.6 mmol/L (98-107); Glucose 211 mg/dL (65-100); Potassium 4.2 mmol/L (3.6-5.0); Sodium 140 mmol/L (137-145)
--- NOTE | 2017-09-10 08:29 | Progress Note ---
<SUSANNE ROCHE - Last Filed: 09/10/17 15:04> Assessment and Plan Assessment and plan: Patient is 51-year-old with history of hypertension, diabetes. She presents with a three-day history of redness of the left foot with swelling. She states it started with swelling of the left foot following by blisters on 2nd, 3rd, and 4th toes. This was then followed by redness, ulcers and now black discoloration on underside of 2nd ,3rd and 4th toes. Diabetic foot infection with cellulitis with gangrene left second third and fourth toes Left foot XR showed no evidence of osteomyelitis and recommended MRI Arterial duplex showed normal arterial flow and recommended contrast angiography Continue on IV Zosyn and IV vancomycin ID following Vascular following due to gangrene. Wound care consult Hypertension. Resume home antihypertensive medication Closely monitor blood pressure Hyponatremia. Resolved Uncontrolled Diabetes mellitus type II with hyperglycemia. Poor control DM with A1C >13.8, diabetic education given and nutrition consulted Accu-Chek before meals and at bedtime Sliding scale insulin/NovoLog ADA carbohydrate consistent diet DVT prophylaxis Lovenox History Interval history: Patient denies having pain at present time. Labs and nursing notes reviewed. Hospitalist Physical - Constitutional Vitals: Temp Pulse Resp BP Pulse Ox 98.0 F 104 H 16 112/61 88 09/09/17 23:31 09/09/17 23:31 09/09/17 23:31 09/09/17 23:31 09/09/17 23:31 General appearance: Present: no acute distress - EENT Eyes: Present: PERRL ENT: hearing intact - Neck Neck: Present: supple - Respiratory Respiratory effort: normal Respiratory: bilateral: CTA - Cardiovascular Rhythm: regular Heart Sounds: Present: S1 & S2 - Extremities Extremity abnormal: edema (left foot and 2nd, 3rd and 4th toes discoloration on underside ) - Abdominal General gastrointestinal: soft, non-tender - Integumentary Integumentary: Present: clear, warm, dry - Psychiatric Psychiatric: appropriate mood/affect - Neurologic Neurologic: moves all extremities - Allied Health Allied health notes reviewed: nursing Results - Labs CBC & Chem 7: 09/10/17 06:14 09/10/17 06:14 Labs: Laboratory Last Values WBC 6.9 K/mm3 (4.5-11.0) 09/10/17 06:14 RBC 4.41 M/mm3 (3.65-5.03) 09/10/17 06:14 Hgb 11.8 gm/dl (10.1-14.3) 09/10/17 06:14 Hct 35.3 % (30.3-42.9) D 09/10/17 06:14 MCV 80 fl (79-97) 09/10/17 06:14 MCH 27 pg (28-32) L 09/10/17 06:14 MCHC 34 % (30-34) 09/10/17 06:14 RDW 14.6 % (13.2-15.2) 09/10/17 06:14 Plt Count 216 K/mm3 (140-440) 09/10/17 06:14 Lymph % (Auto) 31.2 % (13.4-35.0) 09/10/17 06:14 [place] % (Auto) 6.0 % (0.0-7.3) 09/10/17 06:14 Eos % (Auto) 3.0 % (0.0-4.3) 09/10/17 06:14 Baso % (Auto) 0.5 % (0.0-1.8) 09/10/17 06:14 Lymph # 2.2 K/mm3 (1.2-5.4) 09/10/17 06:14 [place] # 0.4 K/mm3 (0.0-0.8) 09/10/17 06:14 Eos # 0.2 K/mm3 (0.0-0.4) 09/10/17 06:14 Baso # 0.0 K/mm3 (0.0-0.1) 09/10/17 06:14 Seg Neutrophils % 59.3 % (40.0-70.0) 09/10/17 06:14 Seg Neutrophils # 4.1 K/mm3 (1.8-7.7) 09/10/17 06:14 Sodium 140 mmol/L (137-145) D 09/10/17 06:14 Potassium 4.2 mmol/L (3.6-5.0) 09/10/17 06:14 Chloride 101.6 mmol/L (98-107) 09/10/17 06:14 Carbon Dioxide 27 mmol/L (22-30) 09/10/17 06:14 Anion Gap 16 mmol/L 09/10/17 06:14 BUN 7 mg/dL (7-17) 09/10/17 06:14 Creatinine 0.5 mg/dL (0.7-1.2) L 09/10/17 06:14 Estimated GFR > 60 ml/min 09/10/17 06:14 BUN/Creatinine Ratio 14 % 09/10/17 06:14 Glucose 211 mg/dL (65-100) H 09/10/17 06:14 POC Glucose 218 (70-105) H 09/10/17 06:25 Hemoglobin A1c 13.8 % (4-6) H 09/10/17 06:14 Lactic Acid 1.20 mmol/L (0.7-2.0) 09/09/17 12:59 Calcium 8.5 mg/dL (8.4-10.2) 09/10/17 06:14 <RODRIGO ASHTON - Last Filed: 09/10/17 19:13> Assessment and Plan Assessment and plan: I saw and evaluated the patient. I agree with the findings and the plan of care as documented in the Nurse Practitioner's~note, with the following corrections and additions. Patient seen and examined, wound care nurse at the bedside Pending vascular evaluation Closely monitor and adjust management as needed Plan of care discussed with the patient Hospitalist Physical - Constitutional Vitals: Temp Pulse Resp BP Pulse Ox 99.0 F 101 H 18 113/53 94 09/10/17 08:11 09/10/17 08:11 09/10/17 12:13 09/10/17 08:11 09/10/17 08:11 Results - Labs CBC & Chem 7: 09/10/17 06:14 09/10/17 06:14 Labs: Laboratory Last Values WBC 6.9 K/mm3 (4.5-11.0) 09/10/17 06:14 RBC 4.41 M/mm3 (3.65-5.03) 09/10/17 06:14 Hgb 11.8 gm/dl (10.1-14.3) 09/10/17 06:14 Hct 35.3 % (30.3-42.9) D 09/10/17 06:14 MCV 80 fl (79-97) 09/10/17 06:14 MCH 27 pg (28-32) L 09/10/17 06:14 MCHC 34 % (30-34) 09/10/17 06:14 RDW 14.6 % (13.2-15.2) 09/10/17 06:14 Plt Count 216 K/mm3 (140-440) 09/10/17 06:14 Lymph % (Auto) 31.2 % (13.4-35.0) 09/10/17 06:14 [place] % (Auto) 6.0 % (0.0-7.3) 09/10/17 06:14 Eos % (Auto) 3.0 % (0.0-4.3) 09/10/17 06:14 Baso % (Auto) 0.5 % (0.0-1.8) 09/10/17 06:14 Lymph # 2.2 K/mm3 (1.2-5.4) 09/10/17 06:14 [place] # 0.4 K/mm3 (0.0-0.8) 09/10/17 06:14 Eos # 0.2 K/mm3 (0.0-0.4) 09/10/17 06:14 Baso # 0.0 K/mm3 (0.0-0.1) 09/10/17 06:14 Seg Neutrophils % 59.3 % (40.0-70.0) 09/10/17 06:14 Seg Neutrophils # 4.1 K/mm3 (1.8-7.7) 09/10/17 06:14 Sodium 140 mmol/L (137-145) D 09/10/17 06:14 Potassium 4.2 mmol/L (3.6-5.0) 09/10/17 06:14 Chloride 101.6 mmol/L (98-107) 09/10/17 06:14 Carbon Dioxide 27 mmol/L (22-30) 09/10/17 06:14 Anion Gap 16 mmol/L 09/10/17 06:14 BUN 7 mg/dL (7-17) 09/10/17 06:14 Creatinine 0.5 mg/dL (0.7-1.2) L 09/10/17 06:14 Estimated GFR > 60 ml/min 09/10/17 06:14 BUN/Creatinine Ratio 14 % 09/10/17 06:14 Glucose 211 mg/dL (65-100) H 09/10/17 06:14 POC Glucose 327 (70-105) H 09/10/17 17:21 Hemoglobin A1c 13.8 % (4-6) H 09/10/17 06:14 Lactic Acid 1.20 mmol/L (0.7-2.0) 09/09/17 12:59 Calcium 8.5 mg/dL (8.4-10.2) 09/10/17 06:14 C-Reactive Protein 7.10 mg/dL (0.00-1.30) H 09/10/17 06:14
[2017-09-10] MEDS: CALAN SR PO SCH (10:00)
[2017-09-10] MEDS ORDERED: VERAPAMIL HCL 360 MG PO SCH (10:00)
[2017-09-10] MEDS: ZOFRAN IV PRN (11:50)
[2017-09-10] MEDS: MORPHINE IV PRN ×2 (12:13→20:48)
[2017-09-10] MEDS: NACL 0.9% 1000 ML 1,000 ML IV SCH (12:15)
--- NOTE | 2017-09-10 13:00 | Consultation ---
History of Present Illness - Reason for Consult Consult date: 09/10/17 diabetic foot infection Requesting physician: AMY COFFEY - History of Present Illness 51 years old female with history of uncontrolled diabetes, hypertension, admitted on 09/09/2017 due to 5 day-history of left forefoot edema, erythema and drainage. Patient reports she has been having a right great toe callus which has been a stable. However, she noticed in the last 5 days that her left sock was soaked in drainage, not foul-smelling. She has been c/o subjective fever on and off. She has been c/o nausea and vomiting. Of note, she was found to have sinusitis and left ear infection 2 weeks ago, she was treated with keflex. since then she has been coughing dry cough. In the emergency room, her initial temperature was 98.3, heart rate 127, blood pressure 142/73, initial white count 9.6. Lactic acid 1.8. Glucose 603. Creatinine 0.5. XR foot No evidence of osteomyelitis. Current Antimicrobials: Zosyn 09/09 Vancomycin 09/09 Previous Antimicrobials: Microbiology: Blood cultures: 09/09 ngtd Past History Past Medical History: diabetes, hypertension, other (depression) Past Surgical History: cholecystectomy, Other (Tubal ligation) Social history: , full code. denies: smoking, alcohol abuse Family history: CAD, diabetes, stroke Medications and Allergies Allergies Allergy/AdvReac Type Severity Reaction Status Date / Time meperidine HCl [From Demerol] Allergy Unknown Verified 05/09/17 16:15 Home Medications Medication Instructions Recorded Confirmed Last Taken Type Carisoprodol [Soma] 350 mg PO BID 03/22/16 09/09/17 09/08/17 History Butalb/Acetamin/Caff 50-325-40 1 each PO Q4H PRN #30 tablet 03/27/16 09/09/17 Rx [Fioricet] Doxepin [SINEquan] 200 mg PO QHS 05/09/17 09/09/17 09/08/17 History Glimepiride [Amaryl] 4 mg PO BID 05/09/17 09/09/17 09/08/17 History Verapamil HCl [Verelan] 360 mg PO QDAY 05/09/17 09/09/17 09/08/17 History Cephalexin [Keflex] 500 mg PO QID 09/09/17 09/09/17 09/08/17 History Insulin Lispro [Humalog 100 50 units SUB-Q BID 09/09/17 09/09/17 09/08/17 History UNITS/ML Kwikpen] Metformin HCl 1,000 mg PO BID 09/09/17 09/09/17 09/08/17 History Active Meds: Active Medications Acetaminophen (Tylenol) 650 mg PO Q4H PRN PRN Reason: Pain MILD(1-3)/Fever >100.5/MARTINEZ Acetaminophen/Butalbital/Caffeine (Fioricet) 1 tab PO Q4H PRN PRN Reason: Headache Last Admin: 09/09/17 17:50 Dose: 1 tab Bisacodyl (Dulcolax) 10 mg [place] QDAY PRN PRN Reason: Constipation unrelieved by MOM Carisoprodol (Soma) 350 mg PO BID [facility] Last Admin: 09/10/17 01:20 Dose: 350 mg Dextrose (D50w (25gm) Vial) 25 gm IV PRN PRN PRN Reason: Hypoglycemia Doxepin HCl (Sinequan) 200 mg PO QHS [facility] Last Admin: 09/10/17 01:03 Dose: 200 mg Glimepiride (Amaryl) 4 mg PO BID [facility] Last Admin: 09/10/17 10:00 Dose: Not Given Guaifenesin (Robitussin) 200 mg PO Q6H PRN PRN Reason: Cough Last Admin: 09/10/17 01:22 Dose: 200 mg Heparin Sodium (Porcine) (Heparin) 5,000 unit SUB-Q Q8HR [facility] Last Admin: 09/10/17 06:44 Dose: 5,000 unit Sodium Chloride (Nacl 0.9% 1000 Ml) 1,000 mls @ 75 mls/hr IV DIRECT [facility] Last Admin: 09/10/17 12:15 Dose: 75 mls/hr Piperacillin Sod/Tazobactam Sod (Zosyn/Ns 4.5gm/100ml) 4.5 gm in 100 mls @ 200 mls/hr IV Q8HR JANE PRN Reason: Protocol Last Admin: 09/10/17 06:41 Dose: 200 mls/hr Vancomycin HCl 1,250 mg/ (Sodium Chloride) 262.5 mls @ 166.667 mls/hr IV Q12H [facility] Last Admin: 09/10/17 04:29 Dose: 166.667 mls/hr Insulin Aspart (Novolog) 0 units SUB-Q AC JANE PRN Reason: Protocol Last Admin: 09/10/17 07:30 Dose: Not Given Insulin Aspart (Novolog) 0 units SUB-Q QHS JANE PRN Reason: Protocol Last Admin: 09/10/17 00:58 Dose: 8 units Insulin Human Isoph/Insulin Regular (Novolin 70/30) 30 unit SUB-Q BIDDIAB [facility] Last Admin: 09/10/17 08:00 Dose: Not Given Magnesium Hydroxide (Milk Of Magnesia) 30 ml PO Q4H PRN PRN Reason: Constipation Morphine Sulfate (Morphine) 2 mg IV Q4H PRN PRN Reason: Pain, Moderate (4-6) Last Admin: 09/10/17 12:13 Dose: 2 mg Ondansetron HCl (Zofran) 4 mg IV Q6H PRN PRN Reason: nausea or vomiting Last Admin: 09/10/17 11:50 Dose: 4 mg Vancomycin HCl (Vancomycin Pharmacy To Dose) 1 each IV PKCONSULT [facility] PRN Reason: Protocol Verapamil HCl (Calan Sr) 360 mg PO DAILY [facility] Last Admin: 09/10/17 10:00 Dose: Not Given Review of Systems All systems: negative (as per HPI rest neg) Physical Examination - Physical Exam Narrative exam: General appearance: Alert in NAD, conversant Eyes: anicteric sclerae, moist conjunctivae; no lid-lag; PERRLA HENT: Atraumatic; oropharynx clear Neck: Trachea midline; supple, no thyromegaly or lymphadenopathy Lungs: ben rhonchi CV: RRR Abdomen: Soft, non-tender; no masses or hepatosplenomegaly Extremities: left 2-5 toes tips with necrotic changes, inter web spaces macerated and erythematous. right great toe callus with central ulcer no drainage no erythema Skin: Normal temperature, turgor and texture; no rash, ulcers or subcutaneous nodules Psych: Appropriate affect, alert and oriented to person, place and time. Neuro: alert and oriented x 3. Moving all extermities Lines: No CVL / PICC - Constitutional Vitals: Vital Signs Temp Pulse Resp BP Pulse Ox 99.0 F 101 H 18 113/53 94 09/10/17 08:11 09/10/17 08:11 09/10/17 12:13 09/10/17 08:11 09/10/17 08:11 Temperature -Last 24 Hours Temperature 99.0 F Temperature 98.0 F Temperature 98.6 F Temperature 98.7 F Results - Labs CBC & Chem 7: 09/10/17 06:14 09/10/17 06:14 Labs: Abnormal lab results 09/09/17 09/09/17 09/09/17 Range/Units 06:13 11:12 14:54 MCH (28-32) pg Creatinine (0.7-1.2) mg/dL Glucose (65-100) mg/dL POC Glucose 420 H 436 H 334 H (70-105) Hemoglobin A1c (4-6) % 09/09/17 09/09/17 09/09/17 Range/Units 16:34 18:02 19:13 MCH (28-32) pg Creatinine (0.7-1.2) mg/dL Glucose (65-100) mg/dL POC Glucose 335 H 413 H 443 H (70-105) Hemoglobin A1c (4-6) % 09/09/17 09/10/17 09/10/17 Range/Units 21:35 06:14 06:14 MCH 27 L (28-32) pg Creatinine 0.5 L (0.7-1.2) mg/dL Glucose 211 H (65-100) mg/dL POC Glucose 302 H (70-105) Hemoglobin A1c (4-6) % 09/10/17 09/10/17 09/10/17 Range/Units 06:14 06:25 11:32 MCH (28-32) pg Creatinine (0.7-1.2) mg/dL Glucose (65-100) mg/dL POC Glucose 218 H 223 H (70-105) Hemoglobin A1c 13.8 H (4-6) % Assessment and Plan Assessment: 1) Left forefoot infection / 2nd-5th toes necrotic changes: likely diabetic foot infection with cellulitis 2) Right great toe ulcer/callus-stable 3) DM-poorly controlled 4) Cough for 2 weeks r/o pneumonia Plan: -follow-up blood cultures -check CXR -continue zosyn and vancomycin for now -arterial US / vascular eval -check CRP -wound care consult Thank you Dr Coffey for your consultation, will follow up with you. Gayle Edwards MD Infectious Diseases Specialist [facility] M [phone] O [phone]
--- NOTE | 2017-09-10 13:28 | Vascular Lab Report ---
LOWER EXTREMITY ARTERIAL PHYSIOLOGIC STUDY: REASON FOR EXAM: Peripheral arterial disease. COMMENTS ON THE RIGHT: Ankle brachial index is 1.15. This value is normal. Toe brachial index is 1.23. This value is normal. Wound healing is likely. Pulse volume recording at the level of the ankle is normal. Exercise testing was not done. COMMENTS ON THE LEFT: Ankle brachial index is 1.14. This value is normal. Toe brachial index is 0.82. This value is normal. Wound healing is likely. Pulse volume recording at the level of the ankle is normal. Exercise testing was not done. IMPRESSION: RIGHT: No hemodynamically significant arterial disease. LEFT:No hemodynamically significant arterial disease.
--- NOTE | 2017-09-10 13:31 | Vascular Lab Report ---
LOWER EXTREMITY ARTERIAL DUPLEX: REASON FOR EXAM: Left foot gangrene. COMMENTS ON THE LEFT: Biphasic waveforms are seen proximally. Biphasic waveforms are seen distally. No significant velocity gradients are identified. No focal significant plaque is identified. Findings are consistent with normal perfusion. Findings are consistent with the ability to heal distal wounds. IMPRESSION: LEFT:Essentially normal arterial flow. Clinical correlation is recommended. Contrast angiography would be warranted.
--- NOTE | 2017-09-10 13:36 | Consultation ---
History of Present Illness - Reason for Consult Consult date: 09/10/17 Necrotic wounds to toes on the Left foot Requesting physician: AMY COFFEY - History of Present Illness This patient is a 51-year-old female that was admitted via the emergency room on 09/09/2017 due to a diabetic left foot infection. She has a chronic right great toe wound which has been present for the last 8-9 months. However, for the last week she's noticed redness and drainage with subsequent blister formation the second through fifth toes on the left foot. The wounds continued to deteriorate, thus prompting her to go to the emergency room for further evaluation. She has since been seen and admitted. She was noted have blackened necrotic tissue to the distsl tips of the toes on the left foot (2nd-5th), and therefore a vascular surgery consult has been requested to further evaluate. She has minimal sensation to her foot, and therefore denies pain at present. Past History Past Medical History: diabetes, hypertension, other (depression) Past Surgical History: cholecystectomy, Other (Tubal ligation) Social history: , full code. denies: smoking, alcohol abuse Family history: CAD, diabetes, stroke Medications and Allergies Allergies Allergy/AdvReac Type Severity Reaction Status Date / Time meperidine HCl [From Demerol] Allergy Unknown Verified 05/09/17 16:15 Home Medications Medication Instructions Recorded Confirmed Last Taken Type Carisoprodol [Soma] 350 mg PO BID 03/22/16 09/09/17 09/08/17 History Butalb/Acetamin/Caff 50-325-40 1 each PO Q4H PRN #30 tablet 03/27/16 09/09/17 Rx [Fioricet] Doxepin [SINEquan] 200 mg PO QHS 05/09/17 09/09/17 09/08/17 History Glimepiride [Amaryl] 4 mg PO BID 05/09/17 09/09/17 09/08/17 History Verapamil HCl [Verelan] 360 mg PO QDAY 05/09/17 09/09/17 09/08/17 History Cephalexin [Keflex] 500 mg PO QID 09/09/17 09/09/17 09/08/17 History Insulin Lispro [Humalog 100 50 units SUB-Q BID 09/09/17 09/09/17 09/08/17 History UNITS/ML Kwikpen] Metformin HCl 1,000 mg PO BID 09/09/17 09/09/17 09/08/17 History Active Meds: Active Medications Acetaminophen (Tylenol) 650 mg PO Q4H PRN PRN Reason: Pain MILD(1-3)/Fever >100.5/MARTINEZ Acetaminophen/Butalbital/Caffeine (Fioricet) 1 tab PO Q4H PRN PRN Reason: Headache Last Admin: 09/09/17 17:50 Dose: 1 tab Bisacodyl (Dulcolax) 10 mg [place] QDAY PRN PRN Reason: Constipation unrelieved by MOM Carisoprodol (Soma) 350 mg PO BID [facility] Last Admin: 09/10/17 01:20 Dose: 350 mg Dextrose (D50w (25gm) Vial) 25 gm IV PRN PRN PRN Reason: Hypoglycemia Doxepin HCl (Sinequan) 200 mg PO QHS [facility] Last Admin: 09/10/17 01:03 Dose: 200 mg Glimepiride (Amaryl) 4 mg PO BID [facility] Last Admin: 09/10/17 10:00 Dose: Not Given Guaifenesin (Robitussin) 200 mg PO Q6H PRN PRN Reason: Cough Last Admin: 09/10/17 01:22 Dose: 200 mg Heparin Sodium (Porcine) (Heparin) 5,000 unit SUB-Q Q8HR [facility] Last Admin: 09/10/17 06:44 Dose: 5,000 unit Sodium Chloride (Nacl 0.9% 1000 Ml) 1,000 mls @ 75 mls/hr IV DIRECT [facility] Last Admin: 09/10/17 12:15 Dose: 75 mls/hr Piperacillin Sod/Tazobactam Sod (Zosyn/Ns 4.5gm/100ml) 4.5 gm in 100 mls @ 200 mls/hr IV Q8HR [facility] PRN Reason: Protocol Last Admin: 09/10/17 06:41 Dose: 200 mls/hr Vancomycin HCl 1,250 mg/ (Sodium Chloride) 262.5 mls @ 166.667 mls/hr IV Q12H [facility] Last Admin: 09/10/17 04:29 Dose: 166.667 mls/hr Insulin Aspart (Novolog) 0 units SUB-Q AC [facility] PRN Reason: Protocol Last Admin: 09/10/17 07:30 Dose: Not Given Insulin Aspart (Novolog) 0 units SUB-Q QHS [facility]ANE PRN Reason: Protocol Last Admin: 09/10/17 00:58 Dose: 8 units Insulin Human Isoph/Insulin Regular (Novolin 70/30) 30 unit SUB-Q BIDDIAB [facility] Last Admin: 09/10/17 08:00 Dose: Not Given Magnesium Hydroxide (Milk Of Magnesia) 30 ml PO Q4H PRN PRN Reason: Constipation Morphine Sulfate (Morphine) 2 mg IV Q4H PRN PRN Reason: Pain, Moderate (4-6) Last Admin: 09/10/17 12:13 Dose: 2 mg Ondansetron HCl (Zofran) 4 mg IV Q6H PRN PRN Reason: nausea or vomiting Last Admin: 09/10/17 11:50 Dose: 4 mg Vancomycin HCl (Vancomycin Pharmacy To Dose) 1 each IV PKCONSULT [facility] PRN Reason: Protocol Verapamil HCl (Calan Sr) 360 mg PO DAILY [facility] Last Admin: 09/10/17 10:00 Dose: Not Given Review of Systems All systems: negative Exam - Constitutional Vitals: Temp Pulse Resp BP Pulse Ox 99.0 F 101 H 18 113/53 94 09/10/17 08:11 09/10/17 08:11 09/10/17 12:13 09/10/17 08:11 09/10/17 08:11 General appearance: Present: no acute distress - EENT Eyes: Present: EOM intact ENT: hearing intact - Neck Neck: Present: supple - Respiratory Respiratory effort: normal - Extremities Extremities: pulses intact (palp DP, and PT bilat), normal temperature Extremity abnormal: black (blackend tips to 2nd 3rd 4th and scant amount to the 5th. Erythema to the dorsal aspect of the toes. (see pictures below)) - Psychiatric Psychiatric: appropriate mood/affect, intact judgment & insight, cooperative - Neurologic Neurologic: no focal deficits, other (pt has very little to no sensation to light touch to her feet.) - Additional findings Additional findings: Results - Labs CBC & Chem 7: 09/10/17 06:14 09/10/17 06:14 Labs: Abnormal lab results 09/09/17 09/09/17 09/09/17 Range/Units 06:13 11:12 14:54 MCH (28-32) pg Creatinine (0.7-1.2) mg/dL Glucose (65-100) mg/dL POC Glucose 420 H 436 H 334 H (70-105) Hemoglobin A1c (4-6) % 09/09/17 09/09/17 09/09/17 Range/Units 16:34 18:02 19:13 MCH (28-32) pg Creatinine (0.7-1.2) mg/dL Glucose (65-100) mg/dL POC Glucose 335 H 413 H 443 H (70-105) Hemoglobin A1c (4-6) % 09/09/17 09/10/17 09/10/17 Range/Units 21:35 06:14 06:14 MCH 27 L (28-32) pg Creatinine 0.5 L (0.7-1.2) mg/dL Glucose 211 H (65-100) mg/dL POC Glucose 302 H (70-105) Hemoglobin A1c (4-6) % 09/10/17 09/10/17 09/10/17 Range/Units 06:14 06:25 11:32 MCH (28-32) pg Creatinine (0.7-1.2) mg/dL Glucose (65-100) mg/dL POC Glucose 218 H 223 H (70-105) Hemoglobin A1c 13.8 H (4-6) % Assessment and Plan Pt admitted with a diabetic left foot wound infection. ID has been consulted. Pt noted to have gangrenous changes to the distal tips of the toes to the left foot. Non-invasive arterial duplex studies were ordered. She has palpable pedal pulses and the ABIs/TBIs suggest she has adequate arterial flow to heal distal wounds (L LINDSAY 1.14, R LINDSAY 1.15 , L TBI 0.82, R TBI 1.23). The wound pattern in combination to her diminished sensation to her feet, suggest that this could be related to poorly fitting footware. Ideally would the pt evaluated by Podiatry/Ortho to determine if her toes are salvageable with subsequent debridement vs amputation. She will also need to be evaluated as for proper fitting shoes as an outpt to decrease the cases of reoccurrence. The wound pattern does not appear to be the result of embolization, but if there is any concern then further work up should be considered. No vascular surgery recommended at this point, unless the pt wounds fail to improve following debridement. - Patient Problems (1) Diabetic foot infection Current Visit: Yes Status: Acute (2) Necrotic toes Current Visit: Yes Status: Acute (3) Uncontrolled diabetes mellitus Current Visit: Yes Status: Acute (4) Hypertension Current Visit: No Status: Chronic
--- NOTE | 2017-09-10 14:19 | XRay Report ---
ROUTINE CHEST, TWO VIEWS: HISTORY: Cough. The trachea, heart, mediastinal contour, lung gong and bony thorax are unremarkable. IMPRESSION: Unremarkable chest x-ray.
[2017-09-10] MEDS: FIORICET PO PRN (17:52)
--- NOTE | 2017-09-10 18:49 | Magnetic Resonance Report ---
FINAL REPORT PROCEDURE: MR LE JOINT LT WO CON TECHNIQUE: MRI of the left foot is performed without IV contrast. HISTORY: left foot infection, swelling COMPARISON: X-ray from the previous day FINDINGS: Mild edema is seen in the dorsum of the foot, greatest laterally. There is likely mild edema in the deep musculature of the mid to forefoot. Edema could be bland edema or cellulitis. No soft tissue abscess is seen. There is likely mild skin thickening in the toes. This may be associated with cellulitis. No evidence of osteomyelitis or fracture is seen. IMPRESSION: Possible changes of cellulitis are seen in the foot and toes. No soft tissue abscess or evidence of osteomyelitis is seen.
[2017-09-11] MEDS: VANCOMYCIN 1,250 MG in NACL 0.9% 250ML 250 ML IV SCH ×2 (04:37→17:14)
[2017-09-11] MEDS: HEPARIN SUB-Q SCH ×3 (06:10→22:43)
[2017-09-11] MEDS: ZOSYN/NS 4.5GM/100ML 4.5 GM/100 ML VIAL IV SCH ×3 (06:11→22:39)
[2017-09-11] MEDS: NOVOLOG SUB-Q SCH ×3 (09:00→17:13)
[2017-09-11] MEDS: AMARYL PO SCH ×2 (09:02→22:40)
--- NOTE | 2017-09-11 09:08 | Progress Note ---
Assessment and Plan Assessment and plan: --Diabetic left foot infection with cellulitis, gangrene of the tips of left second third and fourth toes MRI negative for osteomyelitis, continue current antibiotics, wound care, wound care surgeon /podiatry evaluation[no coverage today] Left arterial Doppler normal study ,Vascular evaluated the patient, no vascular abnormality noted --Hypertension; moderate control, continue current antihypertensives, when necessary medications --Hyponatremia; corrected --Type 2 diabetes mellitus; uncontrolled, A1c 13.8 Accu-Chek sliding scale coverage and ADA diet and insulin Diabetic education, home health nurse for disease management at the time of discharge --Medical noncompliance; counseling done, advised to comply with medications, diet, exercise, follow-up visits Patient verbalized understanding --DVT prophylaxis; Lovenox Closely monitor the patient and adjust management as needed ID evaluation and recommendations noted and appreciated History Interval history: Patient Seen and examined Medical records reviewed Feels slightly better, wants to go home Alert awake oriented 3, not in acute distress Vital signs reviewed Hospitalist Physical - Constitutional Vitals: Temp Pulse Resp BP Pulse Ox 98.9 F 102 H 18 116/57 95 09/11/17 07:42 09/11/17 07:42 09/11/17 07:42 09/11/17 07:42 09/11/17 07:42 General appearance: Present: no acute distress, well-nourished - EENT Eyes: Present: PERRL, EOM intact - Neck Neck: Present: supple, normal ROM - Respiratory Respiratory effort: normal Respiratory: bilateral: diminished, negative: rales, rhonchi, wheezing - Cardiovascular Rhythm: regular Heart Sounds: Present: S1 & S2 - Extremities Extremities: no ischemia, No edema, abnormal Peripheral Pulses: within normal limits Results - Labs CBC & Chem 7: 09/10/17 06:14 09/10/17 06:14 Labs: Laboratory Last Values WBC 6.9 K/mm3 (4.5-11.0) 09/10/17 06:14 RBC 4.41 M/mm3 (3.65-5.03) 09/10/17 06:14 Hgb 11.8 gm/dl (10.1-14.3) 09/10/17 06:14 Hct 35.3 % (30.3-42.9) D 09/10/17 06:14 MCV 80 fl (79-97) 09/10/17 06:14 MCH 27 pg (28-32) L 09/10/17 06:14 MCHC 34 % (30-34) 09/10/17 06:14 RDW 14.6 % (13.2-15.2) 09/10/17 06:14 Plt Count 216 K/mm3 (140-440) 09/10/17 06:14 Lymph % (Auto) 31.2 % (13.4-35.0) 09/10/17 06:14 Bladen % (Auto) 6.0 % (0.0-7.3) 09/10/17 06:14 Eos % (Auto) 3.0 % (0.0-4.3) 09/10/17 06:14 Baso % (Auto) 0.5 % (0.0-1.8) 09/10/17 06:14 Lymph # 2.2 K/mm3 (1.2-5.4) 09/10/17 06:14 Bladen # 0.4 K/mm3 (0.0-0.8) 09/10/17 06:14 Eos # 0.2 K/mm3 (0.0-0.4) 09/10/17 06:14 Baso # 0.0 K/mm3 (0.0-0.1) 09/10/17 06:14 Seg Neutrophils % 59.3 % (40.0-70.0) 09/10/17 06:14 Seg Neutrophils # 4.1 K/mm3 (1.8-7.7) 09/10/17 06:14 Sodium 140 mmol/L (137-145) D 09/10/17 06:14 Potassium 4.2 mmol/L (3.6-5.0) 09/10/17 06:14 Chloride 101.6 mmol/L (98-107) 09/10/17 06:14 Carbon Dioxide 27 mmol/L (22-30) 09/10/17 06:14 Anion Gap 16 mmol/L 09/10/17 06:14 BUN 7 mg/dL (7-17) 09/10/17 06:14 Creatinine 0.5 mg/dL (0.7-1.2) L 09/10/17 06:14 Estimated GFR > 60 ml/min 09/10/17 06:14 BUN/Creatinine Ratio 14 % 09/10/17 06:14 Glucose 211 mg/dL (65-100) H 09/10/17 06:14 POC Glucose 234 (70-105) H 09/11/17 07:17 Hemoglobin A1c 13.8 % (4-6) H 09/10/17 06:14 Lactic Acid 1.20 mmol/L (0.7-2.0) 09/09/17 12:59 Calcium 8.5 mg/dL (8.4-10.2) 09/10/17 06:14 C-Reactive Protein 7.10 mg/dL (0.00-1.30) H 09/10/17 06:14
--- NOTE | 2017-09-11 10:20 | Progress Note ---
Assessment and Plan Assessment: 1) Left forefoot infection / 2nd-5th toes necrotic changes: likely diabetic foot infection with cellulitis. MRI showed cellulitis, no osteomyelitis or abscess seen. CRP=7. 2) Right great toe ulcer/callus-stable 3) DM-poorly controlled, A1C=13 4) Cough: ? bronchitis. CXR negative Plan: -obtain Dr Valles consult -follow-up blood cultures -continue zosyn and vancomycin for now -arterial US pending -wound care consult I will be off tomorrow, available on the phone and will be back rounding on the weekend Thank you Dr Zavala for your consultation, will follow up with you. Gayle Edwards MD Infectious Diseases Specialist [facility] M [phone] O [phone] Subjective Date of service: 09/11/17 Principal diagnosis: diabetic foot infection Interval history: Feels better, still left foot pain, no fever Current Antimicrobials: Zosyn 09/09 Vancomycin 09/09 Previous Antimicrobials: Microbiology: Blood cultures: 09/09 ngtd Objective - Exam Narrative Exam: General appearance: Alert in NAD, conversant Eyes: anicteric sclerae, moist conjunctivae; no lid-lag; PERRLA HENT: Atraumatic; oropharynx clear Neck: Trachea midline; supple, no thyromegaly or lymphadenopathy Lungs: ben rhonchi CV: RRR Abdomen: Soft, non-tender; no masses or hepatosplenomegaly Extremities: left 2-5 toes tips with necrotic changes, inter web spaces macerated and erythematous. right great toe callus with central ulcer no drainage no erythema Skin: Normal temperature, turgor and texture; no rash, ulcers or subcutaneous nodules Psych: Appropriate affect, alert and oriented to person, place and time. Neuro: alert and oriented x 3. Moving all extermities Lines: No CVL / PICC - Constitutional Vitals: Vital Signs Temp Pulse Resp BP Pulse Ox 98.9 F 102 H 18 116/57 95 09/11/17 07:42 09/11/17 07:42 09/11/17 07:42 09/11/17 07:42 09/11/17 07:42 Temperature -Last 24 Hours Temperature 98.9 F Temperature 98.2 F - Labs CBC & Chem 7: 09/10/17 06:14 09/10/17 06:14 Labs: Abnormal lab results 09/10/17 09/10/17 09/10/17 Range/Units 06:14 11:32 17:21 POC Glucose 223 H 327 H (70-105) C-Reactive Protein 7.10 H (0.00-1.30) mg/dL 09/10/17 09/11/17 Range/Units 21:44 07:17 POC Glucose 281 H 234 H (70-105) C-Reactive Protein (0.00-1.30) mg/dL
[2017-09-11] MEDS: CALAN SR PO SCH (11:50)
[2017-09-11] MEDS: SOMA PO SCH ×2 (11:51→22:41)
[2017-09-11] MEDS: NACL 0.9% 1000 ML 1,000 ML IV SCH (14:52)
[2017-09-11] MEDS: FIORICET PO PRN (17:11)
[2017-09-11] MEDS: ROBITUSSIN PO PRN (17:11)
[2017-09-11] MEDS: SINEquan PO SCH (22:42)
[2017-09-12] MEDS: NOVOLOG SUB-Q SCH ×4 (01:11→16:45)
[2017-09-12] MEDS: VANCOMYCIN 1,250 MG in NACL 0.9% 250ML 250 ML IV SCH ×2 (05:10→16:39)
[2017-09-12] MEDS: NACL 0.9% 1000 ML 1,000 ML IV SCH ×2 (05:10→14:38)
[2017-09-12] MEDS: HEPARIN SUB-Q SCH ×3 (05:38→21:11)
[2017-09-12] MEDS: ROBITUSSIN PO PRN ×2 (05:38→16:39)
[2017-09-12] MEDS: ZOSYN/NS 4.5GM/100ML 4.5 GM/100 ML VIAL IV SCH ×3 (07:51→21:27)
[2017-09-12] MEDS: CALAN SR PO SCH (09:59)
[2017-09-12] MEDS: AMARYL PO SCH ×2 (10:00→21:10)
[2017-09-12] MEDS: SOMA PO SCH ×2 (10:00→21:11)
[2017-09-12] MEDS: FIORICET PO PRN (16:39)
--- NOTE | 2017-09-12 18:06 | Progress Note ---
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 Yancey Left arterial Doppler normal study ,Vascular evaluated the patient, no vascular abnormality noted. --Type 2 diabetes mellitus; uncontrolled, A1c 13.8 Accu-Chek sliding scale coverage and ADA diet and insulin Diabetic education, home health nurse for disease management at the time of discharge --Hypertension; moderate control, continue current antihypertensives, when necessary medications --Hyponatremia; corrected --Medical noncompliance; counseling done, advised to comply with medications, diet, exercise, follow-up visits Patient verbalized understanding --DVT prophylaxis; Lovenox Closely monitor the patient and adjust management as needed Follow orthopedic evaluation and recommendations Plan of care Discussed with the patient and her nurse History Interval history: Patient seen and examined Medical records reviewed Patient wants to go home, complaints of generalized weakness Uncontrolled sugars Podiatry, wound care surgeon Dr. Valles not available will Consult orthopedic Hospitalist Physical - Constitutional Vitals: Temp Pulse Resp BP Pulse Ox 98.3 F 89 18 112/54 95 09/12/17 16:15 09/12/17 16:15 09/12/17 16:15 09/12/17 16:15 09/12/17 16:15 General appearance: Present: no acute distress, well-nourished - EENT Eyes: Present: PERRL, scleral icterus - Neck Neck: Present: supple, normal ROM - Respiratory Respiratory effort: normal Respiratory: bilateral: diminished, negative: rales, rhonchi, wheezing - Cardiovascular Rhythm: regular Heart Sounds: Present: S1 & S2 - Extremities Extremities: abnormal (bilateral feet dressing intact, diabetic foot ulcers, gangrenous changes tips of the toes) - Abdominal General gastrointestinal: soft, non-tender, non-distended, normal bowel sounds - Integumentary Integumentary: Present: clear, warm - Psychiatric Psychiatric: appropriate mood/affect, cooperative - Neurologic Neurologic: CNII-XII intact, moves all extremities Results - Labs CBC & Chem 7: 09/10/17 06:14 09/10/17 06:14 Labs: Laboratory Last Values WBC 6.9 K/mm3 (4.5-11.0) 09/10/17 06:14 RBC 4.41 M/mm3 (3.65-5.03) 09/10/17 06:14 Hgb 11.8 gm/dl (10.1-14.3) 09/10/17 06:14 Hct 35.3 % (30.3-42.9) D 09/10/17 06:14 MCV 80 fl (79-97) 09/10/17 06:14 MCH 27 pg (28-32) L 09/10/17 06:14 MCHC 34 % (30-34) 09/10/17 06:14 RDW 14.6 % (13.2-15.2) 09/10/17 06:14 Plt Count 216 K/mm3 (140-440) 09/10/17 06:14 Lymph % (Auto) 31.2 % (13.4-35.0) 09/10/17 06:14 [place] % (Auto) 6.0 % (0.0-7.3) 09/10/17 06:14 Eos % (Auto) 3.0 % (0.0-4.3) 09/10/17 06:14 Baso % (Auto) 0.5 % (0.0-1.8) 09/10/17 06:14 Lymph # 2.2 K/mm3 (1.2-5.4) 09/10/17 06:14 [place] # 0.4 K/mm3 (0.0-0.8) 09/10/17 06:14 Eos # 0.2 K/mm3 (0.0-0.4) 09/10/17 06:14 Baso # 0.0 K/mm3 (0.0-0.1) 09/10/17 06:14 Seg Neutrophils % 59.3 % (40.0-70.0) 09/10/17 06:14 Seg Neutrophils # 4.1 K/mm3 (1.8-7.7) 09/10/17 06:14 Sodium 140 mmol/L (137-145) D 09/10/17 06:14 Potassium 4.2 mmol/L (3.6-5.0) 09/10/17 06:14 Chloride 101.6 mmol/L (98-107) 09/10/17 06:14 Carbon Dioxide 27 mmol/L (22-30) 09/10/17 06:14 Anion Gap 16 mmol/L 09/10/17 06:14 BUN 7 mg/dL (7-17) 09/10/17 06:14 Creatinine 0.5 mg/dL (0.7-1.2) L 09/10/17 06:14 Estimated GFR > 60 ml/min 09/10/17 06:14 BUN/Creatinine Ratio 14 % 09/10/17 06:14 Glucose 211 mg/dL (65-100) H 09/10/17 06:14 POC Glucose 286 (70-105) H 09/12/17 11:37 Hemoglobin A1c 13.8 % (4-6) H 09/10/17 06:14 Lactic Acid 1.20 mmol/L (0.7-2.0) 09/09/17 12:59 Calcium 8.5 mg/dL (8.4-10.2) 09/10/17 06:14 C-Reactive Protein 7.10 mg/dL (0.00-1.30) H 09/10/17 06:14
[2017-09-12] MEDS: SINEquan PO SCH (21:10)
[2017-09-13] MEDS: NOVOLOG SUB-Q SCH ×5 (04:06→21:48)
[2017-09-13] MEDS: ROBITUSSIN PO PRN ×3 (04:27→21:35)
[2017-09-13] MEDS: NACL 0.9% 1000 ML 1,000 ML IV SCH ×2 (04:28→17:27)
[2017-09-13] MEDS: VANCOMYCIN 1,250 MG in NACL 0.9% 250ML 250 ML IV SCH ×2 (04:29→16:36)
[2017-09-13 05:28] LABS: Basophils % (Auto) 0.7 % (0.0-1.8); Eosinophils % (Auto) 3.3 % (0.0-4.3); Hematocrit 30.5 % (30.3-42.9); Hemoglobin 10.3 gm/dl (10.1-14.3); Mean Corpuscular HGB Conc 34 % (30-34); Mean Corpuscular Hemoglobin 27 pg (28-32); Mean Corpuscular Volume 80 fl (79-97); Platelet Count 200 K/mm3 (140-440); Red Cell Distribution Width 14.4 % (13.2-15.2); White Blood Count 5.8 K/mm3 (4.5-11.0)
[2017-09-13 05:37] LABS: Anion Gap 13 mmol/L; BUN/Creatinine Ratio 12; Blood Urea Nitrogen 6 mg/dL (7-17); Calcium 8.5 mg/dL (8.4-10.2); Carbon Dioxide 25 mmol/L (22-30); Chloride 108.8 mmol/L (98-107); Glucose 131 mg/dL (65-100); Potassium 3.9 mmol/L (3.6-5.0); Sodium 143 mmol/L (137-145)
[2017-09-13] MEDS: HEPARIN SUB-Q SCH ×3 (06:22→21:36)
[2017-09-13] MEDS: ZOSYN/NS 4.5GM/100ML 4.5 GM/100 ML VIAL IV SCH ×3 (06:23→21:35)
[2017-09-13] MEDS: AMARYL PO SCH ×2 (09:57→21:47)
[2017-09-13] MEDS: SOMA PO SCH ×2 (09:57→21:35)
[2017-09-13] MEDS: CALAN SR PO SCH (09:58)
--- NOTE | 2017-09-13 11:24 | Progress Note ---
Assessment and Plan Assessment: 1) Left forefoot infection / 2nd-5th toes necrotic changes: likely diabetic foot infection with cellulitis. MRI showed cellulitis, no osteomyelitis or abscess seen. CRP=7. Art US normal flow. Wound cx + Staph, GNR and Enterococcus 2) Right great toe ulcer/callus-stable 3) DM-poorly controlled, A1C=13 4) Cough: ? bronchitis. CXR negative Plan: -obtain security associate or ortho consult -follow-up blood cultures -continue zosyn and vancomycin for now -wound care consult -upon discharge will do doxycycline 100 mg po q12h and levaquin 750 mg po qday OR cipro 500 mg PO q12h total 10 days -contact isolation until MRSA is r/o I will be covering the weekend Thank you Dr Zavala for your consultation, will follow up with you. Gayle Edwards MD Infectious Diseases Specialist [facility] ([facility]) M [phone] O [phone] Subjective Date of service: 09/13/17 Principal diagnosis: diabetic foot infection Interval history: Feels better, no left foot pain, no fever Current Antimicrobials: Zosyn 09/09 Vancomycin 09/09 Previous Antimicrobials: Microbiology: Blood cultures: 09/09 ngtd Wound culture: 09/10 GNR, Enterococcus, Staph Objective - Exam Narrative Exam: General appearance: Alert in NAD, conversant Eyes: anicteric sclerae, moist conjunctivae; no lid-lag; PERRLA HENT: Atraumatic; oropharynx clear Neck: Trachea midline; supple, no thyromegaly or lymphadenopathy Lungs: ben rhonchi CV: RRR Abdomen: Soft, non-tender; no masses or hepatosplenomegaly Extremities: left 2-5 toes tips with necrotic changes, inter web spaces macerated and erythematous. right great toe callus with central ulcer no drainage no erythema Skin: Normal temperature, turgor and texture; no rash, ulcers or subcutaneous nodules Psych: Appropriate affect, alert and oriented to person, place and time. Neuro: alert and oriented x 3. Moving all extermities Lines: No CVL / PICC - Constitutional Vitals: Vital Signs Temp Pulse Resp BP Pulse Ox 97.9 F 97 H 18 149/77 90 09/13/17 08:07 09/13/17 08:07 09/13/17 08:07 09/13/17 09:58 09/13/17 08:07 Temperature -Last 24 Hours Temperature 97.9 F Temperature 98.6 F Temperature 98.3 F - Labs CBC & Chem 7: 09/13/17 05:05 09/13/17 05:05 Labs: Abnormal lab results 09/12/17 09/12/17 09/12/17 Range/Units 11:37 16:42 21:05 MCH (28-32) pg Chloride (98-107) mmol/L BUN (7-17) mg/dL Creatinine (0.7-1.2) mg/dL Glucose (65-100) mg/dL POC Glucose 286 H 119 H 140 H (70-105) Vancomycin Trough (5.0-20.0) ug/mL 09/13/17 09/13/17 09/13/17 Range/Units 05:05 05:05 05:05 MCH 27 L (28-32) pg Chloride 108.8 H (98-107) mmol/L BUN 6 L (7-17) mg/dL Creatinine 0.5 L (0.7-1.2) mg/dL Glucose 131 H (65-100) mg/dL POC Glucose (70-105) Vancomycin Trough 31.7 H (5.0-20.0) ug/mL 09/13/17 Range/Units 06:27 MCH (28-32) pg Chloride (98-107) mmol/L BUN (7-17) mg/dL Creatinine (0.7-1.2) mg/dL Glucose (65-100) mg/dL POC Glucose 139 H (70-105) Vancomycin Trough (5.0-20.0) ug/mL
--- NOTE | 2017-09-13 15:04 | Progress Note ---
Assessment and Plan - Left foot infection / 2nd-5th toes necrotic changes: likely diabetic foot infection with cellulitis. MRI showed cellulitis, no osteomyelitis or abscess seen. CRP=7. Art US normal flow. Wound cx + Staph, GNR and Enterococcus. Consult wound care Surgeon. continue with Vanc and Zosyn per ID - Right great toe ulcer/callus-stable: continue with local wound care. iv antibiotic per ID - DM-poorly controlled, A1C=13: Optimize Control with SSI and Consistent [place] diet - Cough: Bronchitis. CXR negative. commence expectorant - DVT prophylaxis with Subjective Date of service: 09/13/17 Principal diagnosis: diabetic foot infection Interval history: No new complaint. Denies any fever. Nauseated but no vomiting Objective - Constitutional Vitals: Vital Signs - 12hr 09/13/17 09/13/17 08:07 09:58 Temperature 97.9 F Pulse Rate 97 H Respiratory 18 Rate Blood Pressure 149/77 149/77 O2 Sat by Pulse 90 Oximetry General appearance: Present: no acute distress, well-nourished - EENT Eyes: PERRL, EOM intact Ears: bilateral: normal - Neck Neck: supple, normal ROM - Respiratory Respiratory effort: normal Respiratory: bilateral: CTA - Cardiovascular Rhythm: regular Heart Sounds: Present: S1 & S2. Absent: gallop, rub Extremities: pulses intact, No edema, Full ROM - Gastrointestinal General gastrointestinal: Present: soft, non-tender, non-distended, normal bowel sounds - Integumentary Integumentary: clear, warm, dry - Musculoskeletal Musculoskeletal: 1, strength equal bilaterally - Neurologic Neurologic: moves all extremities - Psychiatric Psychiatric: memory intact, appropriate mood/affect, intact judgment & insight - Labs CBC & Chem 7: 09/13/17 05:05 09/13/17 05:05 Labs: Abnormal lab results 09/12/17 09/12/17 09/13/17 Range/Units 16:42 21:05 05:05 MCH (28-32) pg Chloride (98-107) mmol/L BUN (7-17) mg/dL Creatinine (0.7-1.2) mg/dL Glucose (65-100) mg/dL POC Glucose 119 H 140 H (70-105) Vancomycin Trough 31.7 H (5.0-20.0) ug/mL 09/13/17 09/13/17 09/13/17 Range/Units 05:05 05:05 06:27 MCH 27 L (28-32) pg Chloride 108.8 H (98-107) mmol/L BUN 6 L (7-17) mg/dL Creatinine 0.5 L (0.7-1.2) mg/dL Glucose 131 H (65-100) mg/dL POC Glucose 139 H (70-105) Vancomycin Trough (5.0-20.0) ug/mL 09/13/17 Range/Units 11:53 MCH (28-32) pg Chloride (98-107) mmol/L BUN (7-17) mg/dL Creatinine (0.7-1.2) mg/dL Glucose (65-100) mg/dL POC Glucose 216 H (70-105) Vancomycin Trough (5.0-20.0) ug/mL
[2017-09-13] MEDS: FIORICET PO PRN (15:48)
[2017-09-13] MEDS: SINEquan PO SCH (21:35)
[2017-09-14] MEDS: VANCOMYCIN 1,250 MG in NACL 0.9% 250ML 250 ML IV SCH ×2 (04:34→16:00)
[2017-09-14] MEDS: ZOSYN/NS 4.5GM/100ML 4.5 GM/100 ML VIAL IV SCH ×2 (05:36→14:11)
[2017-09-14] MEDS: ROBITUSSIN PO PRN ×3 (05:36→22:22)
[2017-09-14] MEDS: HEPARIN SUB-Q SCH ×3 (05:36→22:22)
[2017-09-14 05:38] LABS: Basophils % (Auto) 0.4 % (0.0-1.8); Eosinophils % (Auto) 3.8 % (0.0-4.3); Hematocrit 31.1 % (30.3-42.9); Mean Corpuscular HGB Conc 32 % (30-34); Mean Corpuscular Volume 81 fl (79-97); Platelet Count 210 K/mm3 (140-440); Red Blood Count 3.87 M/mm3 (3.65-5.03); Red Cell Distribution Width 14.9 % (13.2-15.2); White Blood Count 6.2 K/mm3 (4.5-11.0)
[2017-09-14 05:44] LABS: Mean Corpuscular Hemoglobin 26 pg (28-32)
[2017-09-14 06:00] LABS: Alanine Aminotransferase 20 units/L (7-56); Albumin 3.2 g/dL (3.9-5); Albumin/Globulin Ratio 0.9 %; Alkaline Phosphatase 123 units/L (35-129); BUN/Creatinine Ratio 10; Bilirubin,Total < 0.20 mg/dL (0.1-1.2); Blood Urea Nitrogen 6 mg/dL (7-17); Calcium 8.2 mg/dL (8.4-10.2); Carbon Dioxide 25 mmol/L (22-30); Glucose 168 mg/dL (65-100); Total Protein 6.6 g/dL (6.3-8.2)
[2017-09-14 06:01] LABS: Anion Gap 13 mmol/L; Chloride 106.4 mmol/L (98-107); Potassium 3.7 mmol/L (3.6-5.0); Sodium 141 mmol/L (137-145)
[2017-09-14] MEDS: NOVOLOG SUB-Q SCH ×4 (08:39→22:26)
[2017-09-14] MEDS: ZOFRAN IV PRN (08:40)
[2017-09-14] MEDS: NACL 0.9% 1000 ML 1,000 ML IV SCH ×2 (08:41→22:22)
[2017-09-14] MEDS: AMARYL PO SCH ×2 (09:44→22:21)
[2017-09-14] MEDS: CALAN SR PO SCH (09:44)
[2017-09-14] MEDS: SOMA PO SCH ×2 (09:44→22:22)
[2017-09-14] MEDS: FIORICET PO PRN (14:11)
--- NOTE | 2017-09-14 15:59 | Progress Note ---
Assessment and Plan Assessment and plan: --Acute bronchitis; slightly improved, continue antihistamines, Inhalers cough medicine and IV antibiotics --Diabetic lt foot infection cellulitis, gangrene tips lt 2nd, 3rd and 4th toes MRI neg osteomyelitis, and Vanco Zosyn und care,wound care surg/podiatry consult Left arterial Doppler normal study , no vascular intervention per vas evaluation.. --Type 2 diabetes mellitus; uncontrolled, A1c 13.8 Accu-Chek SSC, ADA diet and insulin, Diabetic education, HHN for disease management at discharge --Hypertension; moderate control, continue current antihypertensives, when necessary medications --Hyponatremia; corrected --Medical noncompliance; counseling done to comply with medications, diet, exercise, follow-up visits --DVT prophylaxis; Lovenox Closely monitor the patient and adjust management as needed Follow orthopedic evaluation and recommendations Plan of care Discussed with the patient and her nurse History Interval history: Patient seen and evaluated in her from medical records reviewed Complaints of some sore throat and cough Vital signs reviewed stable Hospitalist Physical - Constitutional Vitals: Temp Pulse Resp BP Pulse Ox 98.5 F 94 H 18 127/70 92 09/14/17 15:47 09/14/17 15:47 09/14/17 15:47 09/14/17 15:47 09/14/17 15:47 General appearance: Present: no acute distress, well-nourished - EENT Eyes: Present: PERRL, EOM intact - Neck Neck: Present: supple, normal ROM - Respiratory Respiratory effort: normal Respiratory: bilateral: diminished, negative: rales, rhonchi, wheezing - Cardiovascular Rhythm: regular Heart Sounds: Present: S1 & S2 - Extremities Extremities: no ischemia, No edema - Abdominal General gastrointestinal: soft, non-tender, non-distended, normal bowel sounds - Integumentary Integumentary: Present: clear, warm - Psychiatric Psychiatric: appropriate mood/affect, cooperative - Neurologic Neurologic: CNII-XII intact, moves all extremities Results - Labs CBC & Chem 7: 09/14/17 04:28 09/14/17 04:28 Labs: Laboratory Last Values WBC 6.2 K/mm3 (4.5-11.0) 09/14/17 04:28 RBC 3.87 M/mm3 (3.65-5.03) 09/14/17 04:28 Hgb 10.0 gm/dl (10.1-14.3) L 09/14/17 04:28 Hct 31.1 % (30.3-42.9) 09/14/17 04:28 MCV 81 fl (79-97) 09/14/17 04:28 MCH 26 pg (28-32) L 09/14/17 04:28 MCHC 32 % (30-34) 09/14/17 04:28 RDW 14.9 % (13.2-15.2) 09/14/17 04:28 Plt Count 210 K/mm3 (140-440) 09/14/17 04:28 Lymph % (Auto) 21.8 % (13.4-35.0) 09/14/17 04:28 [place] % (Auto) 5.9 % (0.0-7.3) 09/14/17 04:28 Eos % (Auto) 3.8 % (0.0-4.3) 09/14/17 04:28 Baso % (Auto) 0.4 % (0.0-1.8) 09/14/17 04:28 Lymph # 1.4 K/mm3 (1.2-5.4) 09/14/17 04:28 [place] # 0.4 K/mm3 (0.0-0.8) 09/14/17 04:28 Eos # 0.2 K/mm3 (0.0-0.4) 09/14/17 04:28 Baso # 0.0 K/mm3 (0.0-0.1) 09/14/17 04:28 Seg Neutrophils % 68.1 % (40.0-70.0) 09/14/17 04:28 Seg Neutrophils # 4.2 K/mm3 (1.8-7.7) 09/14/17 04:28 Sodium 141 mmol/L (137-145) 09/14/17 04:28 Potassium 3.7 mmol/L (3.6-5.0) 09/14/17 04:28 Chloride 106.4 mmol/L (98-107) 09/14/17 04:28 Carbon Dioxide 25 mmol/L (22-30) 09/14/17 04:28 Anion Gap 13 mmol/L 09/14/17 04:28 BUN 6 mg/dL (7-17) L 09/14/17 04:28 Creatinine 0.6 mg/dL (0.7-1.2) L 09/14/17 04:28 Estimated GFR > 60 ml/min 09/14/17 04:28 BUN/Creatinine Ratio 10 % 09/14/17 04:28 Glucose 168 mg/dL (65-100) H 09/14/17 04:28 POC Glucose 153 (70-105) H 09/14/17 11: Hemoglobin A1c 13.8 % (4-6) H 09/10/17 06:14 Lactic Acid 1.20 mmol/L (0.7-2.0) 09/09/17 12:59 Calcium 8.2 mg/dL (8.4-10.2) L 09/14/17 04:28 Magnesium 2.00 mg/dL (1.7-2.3) 09/13/17 05:05 Total Bilirubin < 0.20 mg/dL (0.1-1.2) 09/14/17 04:28 AST 20 units/L (5-40) 09/14/17 04:28 ALT 20 units/L (7-56) 09/14/17 04:28 Alkaline Phosphatase 123 units/L (35-129) 09/14/17 04:28 C-Reactive Protein 7.10 mg/dL (0.00-1.30) H 09/10/17 06:14 Total Protein 6.6 g/dL (6.3-8.2) 09/14/17 04:28 Albumin 3.2 g/dL (3.9-5) L 09/14/17 04:28 Albumin/Globulin Ratio 0.9 % 09/14/17 04:28 Vancomycin Trough 11.2 ug/mL (5.0-20.0) 09/13/17 14:46
--- NOTE | 2017-09-14 16:16 | Progress Note ---
Assessment and Plan Assessment: 1) Left forefoot infection / 2nd-5th toes necrotic changes: likely diabetic foot infection with cellulitis. MRI showed cellulitis, no osteomyelitis or abscess seen. CRP=7. Art US normal flow. Wound cx + MSSA, Acinetobacter and Enterococcus 2) Right great toe ulcer/callus-stable 3) DM-poorly controlled, A1C=13 4) Cough: ? bronchitis. CXR negative Plan: -obtain zoology technical officer or ortho consult - pending -stop zosyn and vancomycin for now -start levaquin -wound care consult -upon discharge will do levaquin 750 mg po qday OR cipro 500 mg PO q12h total 10 days -stop contact isolation I will sign off Thank you Dr Zavala for your consultation, will follow up with you. Gayle Edwards MD Infectious Diseases Specialist [facility] ([facility]) M [phone] O [phone] Subjective Date of service: 09/14/17 Principal diagnosis: diabetic foot infection Interval history: Feels better, no left foot pain, no fever Current Antimicrobials: Zosyn 09/09 Vancomycin 09/09 Previous Antimicrobials: Microbiology: Blood cultures: 09/09 ngtd Wound culture: 09/10 GNR, Enterococcus, Staph Objective - Exam Narrative Exam: General appearance: Alert in NAD, conversant Eyes: anicteric sclerae, moist conjunctivae; no lid-lag; PERRLA HENT: Atraumatic; oropharynx clear Neck: Trachea midline; supple, no thyromegaly or lymphadenopathy Lungs: ben rhonchi CV: RRR Abdomen: Soft, non-tender; no masses or hepatosplenomegaly Extremities: left 2-5 toes tips with necrotic changes, inter web spaces macerated and erythematous. right great toe callus with central ulcer no drainage no erythema Skin: Normal temperature, turgor and texture; no rash, ulcers or subcutaneous nodules Psych: Appropriate affect, alert and oriented to person, place and time. Neuro: alert and oriented x 3. Moving all extermities Lines: No CVL / PICC - Constitutional Vitals: Vital Signs Temp Pulse Resp BP Pulse Ox 98.5 F 94 H 18 127/70 92 09/14/17 15:47 09/14/17 15:47 09/14/17 15:47 09/14/17 15:47 09/14/17 15:47 Temperature -Last 24 Hours Temperature 98.5 F Temperature 98.5 F Temperature 98.1 F Temperature 98.1 F - Labs CBC & Chem 7: 09/14/17 04:28 09/14/17 04:28 Labs: Abnormal lab results 09/13/17 09/13/17 09/14/17 Range/Units 16:26 21:24 04:28 Hgb 10.0 L (10.1-14.3) gm/dl MCH 26 L (28-32) pg BUN (7-17) mg/dL Creatinine (0.7-1.2) mg/dL Glucose (65-100) mg/dL POC Glucose 109 H 136 H (70-105) Calcium (8.4-10.2) mg/dL Albumin (3.9-5) g/dL 09/14/17 09/14/17 09/14/17 Range/Units 04:28 06:36 11:17 Hgb (10.1-14.3) gm/dl MCH (28-32) pg BUN 6 L (7-17) mg/dL Creatinine 0.6 L (0.7-1.2) mg/dL Glucose 168 H (65-100) mg/dL POC Glucose 158 H 153 H (70-105) Calcium 8.2 L (8.4-10.2) mg/dL Albumin 3.2 L (3.9-5) g/dL
[2017-09-14] MEDS ORDERED: LEVAQUIN PO SCH (17:00)
[2017-09-14] MEDS: SINEquan PO SCH (22:22)
[2017-09-15] MEDS: HEPARIN SUB-Q SCH ×3 (06:21→22:20)
[2017-09-15] MEDS: NOVOLOG SUB-Q SCH ×4 (08:51→22:06)
[2017-09-15] MEDS: AMARYL PO SCH ×2 (09:16→22:18)
[2017-09-15] MEDS: SOMA PO SCH ×2 (09:17→22:18)
[2017-09-15] MEDS: CALAN SR PO SCH (09:17)
[2017-09-15] MEDS: LEVAQUIN PO SCH (09:17)
[2017-09-15] MEDS: NACL 0.9% 1000 ML 1,000 ML IV SCH ×2 (10:42→22:23)
[2017-09-15] MEDS: FIORICET PO PRN (13:34)
--- NOTE | 2017-09-15 15:37 | Consultation ---
History of Present Illness - HPI Consult date: 09/15/17 Consult reason: other History of present illness: 51-year-old female that was admitted via the emergency room on 09/09/2017 due to a diabetic left foot infection. She has a chronic right great toe wound which has been present for the last 8-9 months. However, for the last week she' s noticed redness and drainage with subsequent blister formation the second through fifth toes on the left foot. The wounds continued to deteriorate, thus prompting her to go to the emergency room for further evaluation. Orthopedic consultation requested regarding gangrenous 2-4 toes... Past History Past Medical History: diabetes, hypertension, other (depression) Past Surgical History: cholecystectomy, Other (Tubal ligation) Social history: , full code. denies: smoking, alcohol abuse Family history: CAD, diabetes, stroke Medications and Allergies Allergies Allergy/AdvReac Type Severity Reaction Status Date / Time meperidine HCl [From Demerol] Allergy Unknown Verified 05/09/17 16:15 Home Medications Medication Instructions Recorded Confirmed Last Taken Type Carisoprodol [Soma] 350 mg PO BID 03/22/16 09/09/17 09/08/17 History Butalb/Acetamin/Caff 50-325-40 1 each PO Q4H PRN #30 tablet 03/27/16 09/09/17 Rx [Fioricet] Doxepin [SINEquan] 200 mg PO QHS 05/09/17 09/09/17 09/08/17 History Glimepiride [Amaryl] 4 mg PO BID 05/09/17 09/09/17 09/08/17 History Verapamil HCl [Verelan] 360 mg PO QDAY 05/09/17 09/09/17 09/08/17 History Cephalexin [Keflex] 500 mg PO QID 09/09/17 09/09/17 09/08/17 History Insulin Lispro [Humalog 100 50 units SUB-Q BID 09/09/17 09/09/17 09/08/17 History UNITS/ML Kwikpen] Metformin HCl 1,000 mg PO BID 09/09/17 09/09/17 09/08/17 History Active Meds: Active Medications Acetaminophen (Tylenol) 650 mg PO Q4H PRN PRN Reason: Pain MILD(1-3)/Fever >100.5/MARTINEZ Acetaminophen/Butalbital/Caffeine (Fioricet) 1 tab PO Q4H PRN PRN Reason: Headache Last Admin: 09/15/17 13:34 Dose: 1 tab Bisacodyl (Dulcolax) 10 mg IA QDAY PRN PRN Reason: Constipation unrelieved by MOM Carisoprodol (Soma) 350 mg PO BID [facility] Last Admin: 09/15/17 09:17 Dose: 350 mg Dextrose (D50w (25gm) Vial) 25 gm IV PRN PRN PRN Reason: Hypoglycemia Doxepin HCl (Sinequan) 200 mg PO QHS [facility] Last Admin: 09/14/17 22:22 Dose: 200 mg Glimepiride (Amaryl) 4 mg PO BID [facility] Last Admin: 09/15/17 09:16 Dose: 4 mg Guaifenesin (Robitussin) 200 mg PO Q6H PRN PRN Reason: Cough Last Admin: 09/14/17 22:22 Dose: 200 mg Heparin Sodium (Porcine) (Heparin) 5,000 unit SUB-Q Q8HR [facility] Last Admin: 09/15/17 13:32 Dose: 5,000 unit Sodium Chloride (Nacl 0.9% 1000 Ml) 1,000 mls @ 75 mls/hr IV DIRECT [facility] Last Admin: 09/15/17 10:42 Dose: 75 mls/hr Insulin Aspart (Novolog) 0 units SUB-Q AC [facility] PRN Reason: Protocol Last Admin: 09/15/17 13:29 Dose: 3 units Insulin Aspart (Novolog) 0 units SUB-Q QHS [facility] PRN Reason: Protocol Last Admin: 09/14/17 22:26 Dose: Not Given Insulin Human Isoph/Insulin Regular (Novolin 70/30) 35 unit SUB-Q BIDDIAB [facility] Last Admin: 09/15/17 08:52 Dose: 35 unit Levofloxacin (Levaquin) 750 mg PO DAILY [facility] Last Admin: 09/15/17 09:17 Dose: 750 mg Magnesium Hydroxide (Milk Of Magnesia) 30 ml PO Q4H PRN PRN Reason: Constipation Morphine Sulfate (Morphine) 2 mg IV Q4H PRN PRN Reason: Pain, Moderate (4-6) Last Admin: 09/10/17 20:48 Dose: 2 mg Ondansetron HCl (Zofran) 4 mg IV Q6H PRN PRN Reason: nausea or vomiting Last Admin: 09/14/17 08:40 Dose: 4 mg Verapamil HCl (Calan Sr) 360 mg PO DAILY [facility] Last Admin: 09/15/17 09:17 Dose: 360 mg Physical Examination - Physical exam Narrative exam: Right foot - minimal erythema, dark dried skin along plantar surface 2,&3 toes, at 4th mild to moderate skin breakdown,minimal drainage noted Assessment and Plan Dry Gangrene right forefoot Recommend observation at this point, may require partial toe amputations in future but not now, continue dressing changes and antibiotics, can follow as outpatient....
--- NOTE | 2017-09-15 17:22 | Progress Note ---
Assessment and Plan Assessment and plan: --Diabetic lt foot infection cellulitis, gangrene tips lt 2nd, 3rd and 4th toes MRI neg osteomyelitis, and Vanco Zosyn und care,wound care surg/podiatry consult Left arterial Doppler normal study , no vascular intervention per [facility] evaluation. Outpatient wound care upon discharge --Acute bronchitis; slightly improved, continue antihistamines, Inhalers cough medicine and IV antibiotics --Type 2 diabetes mellitus; uncontrolled, A1c 13.8 Accu-Chek SSC, ADA diet and insulin, Diabetic education, HHN for disease management at discharge --Hypertension; moderate control, continue current antihypertensives, when necessary medications --Hyponatremia; corrected --Medical noncompliance; counseling done to comply with medications, diet, exercise, follow-up visits Discharge home tomorrow with oral antibiotics, wound care as outpatient, possible home health Plan of care discussed with the patient and her nurse History Interval history: Patient seen and examined medical records reviewed Anxious to go home. It is of bilateral lower extremity cellulitis and dry gangrene Awaiting wound care surgeon evaluation Afebrile, no new complaints Hospitalist Physical - Constitutional Vitals: Temp Pulse Resp BP Pulse Ox 98.5 F 102 H 20 148/79 95 09/15/17 07:42 09/15/17 09:17 09/15/17 13:34 09/15/17 09:17 09/15/17 07:42 General appearance: Present: no acute distress, well-nourished - EENT Eyes: Present: PERRL, EOM intact - Neck Neck: Present: supple, normal ROM - Respiratory Respiratory effort: normal Respiratory: bilateral: diminished, negative: rales, rhonchi, wheezing - Cardiovascular Rhythm: regular Heart Sounds: Present: S1 & S2 - Extremities Extremities: no ischemia, No edema - Abdominal General gastrointestinal: soft, non-tender, non-distended, normal bowel sounds - Integumentary Integumentary: Present: clear, warm - Psychiatric Psychiatric: appropriate mood/affect, cooperative - Neurologic Neurologic: CNII-XII intact, moves all extremities Results - Labs CBC & Chem 7: 09/14/17 04:28 09/14/17 04:28 Labs: Laboratory Last Values WBC 6.2 K/mm3 (4.5-11.0) 09/14/17 04:28 RBC 3.87 M/mm3 (3.65-5.03) 09/14/17 04:28 Hgb 10.0 gm/dl (10.1-14.3) L 09/14/17 04:28 Hct 31.1 % (30.3-42.9) 09/14/17 04:28 MCV 81 fl (79-97) 09/14/17 04:28 MCH 26 pg (28-32) L 09/14/17 04:28 MCHC 32 % (30-34) 09/14/17 04:28 RDW 14.9 % (13.2-15.2) 09/14/17 04:28 Plt Count 210 K/mm3 (140-440) 09/14/17 04:28 Lymph % (Auto) 21.8 % (13.4-35.0) 09/14/17 04:28 [place] % (Auto) 5.9 % (0.0-7.3) 09/14/17 04:28 Eos % (Auto) 3.8 % (0.0-4.3) 09/14/17 04:28 Baso % (Auto) 0.4 % (0.0-1.8) 09/14/17 04:28 Lymph # 1.4 K/mm3 (1.2-5.4) 09/14/17 04:28 [place] # 0.4 K/mm3 (0.0-0.8) 09/14/17 04:28 Eos # 0.2 K/mm3 (0.0-0.4) 09/14/17 04:28 Baso # 0.0 K/mm3 (0.0-0.1) 09/14/17 04:28 Seg Neutrophils % 68.1 % (40.0-70.0) 09/14/17 04:28 Seg Neutrophils # 4.2 K/mm3 (1.8-7.7) 09/14/17 04:28 Sodium 141 mmol/L (137-145) 09/14/17 04:28 Potassium 3.7 mmol/L (3.6-5.0) 09/14/17 04:28 Chloride 106.4 mmol/L (98-107) 09/14/17 04:28 Carbon Dioxide 25 mmol/L (22-30) 09/14/17 04:28 Anion Gap 13 mmol/L 09/14/17 04:28 BUN 6 mg/dL (7-17) L 09/14/17 04:28 Creatinine 0.6 mg/dL (0.7-1.2) L 09/14/17 04:28 Estimated GFR > 60 ml/min 09/14/17 04:28 BUN/Creatinine Ratio 10 % 09/14/17 04:28 Glucose 168 mg/dL (65-100) H 09/14/17 04:28 POC Glucose 63 (70-105) L 09/15/17 17:05 Hemoglobin A1c 13.8 % (4-6) H 09/10/17 06:14 Lactic Acid 1.20 mmol/L (0.7-2.0) 09/09/17 12:59 Calcium 8.2 mg/dL (8.4-10.2) L 09/14/17 04:28 Magnesium 2.00 mg/dL (1.7-2.3) 09/13/17 05:05 Total Bilirubin < 0.20 mg/dL (0.1-1.2) 09/14/17 04:28 AST 20 units/L (5-40) 09/14/17 04:28 ALT 20 units/L (7-56) 09/14/17 04:28 Alkaline Phosphatase 123 units/L (35-129) 09/14/17 04:28 C-Reactive Protein 7.10 mg/dL (0.00-1.30) H 09/10/17 06:14 Total Protein 6.6 g/dL (6.3-8.2) 09/14/17 04:28 Albumin 3.2 g/dL (3.9-5) L 09/14/17 04:28 Albumin/Globulin Ratio 0.9 % 09/14/17 04:28 Vancomycin Trough 11.2 ug/mL (5.0-20.0) 09/13/17 14:46
[2017-09-15] MEDS: SINEquan PO SCH (22:18)
[2017-09-16] MEDS: HEPARIN SUB-Q SCH (05:23)
[2017-09-16] MEDS: ZOFRAN IV PRN (07:20)
[2017-09-16] MEDS: NOVOLOG SUB-Q SCH ×3 (08:05→17:50)
[2017-09-16] MEDS: CALAN SR PO SCH (10:24)
[2017-09-16] MEDS: AMARYL PO SCH (10:25)
[2017-09-16] MEDS: SOMA PO SCH (10:26)
[2017-09-16] MEDS: LEVAQUIN PO SCH (10:28)
[2017-09-16] MEDS: NACL 0.9% 1000 ML 1,000 ML IV SCH (12:41)
[2017-09-16] MEDS: FIORICET PO PRN (12:43)
--- NOTE | 2017-09-16 15:25 | Discharge Summary ---
Providers - Providers Date of Admission: 09/09/17 16:42 Date of discharge: 09/16/17 Attending physician: RODRIGO ASHTON 09/09/17 16:42 Consult to Physician [CONS] Routine Consulting Provider: MEG RAJPUT Reason For Exam: foot infection with gangrene toes left foot Place consult to:: [facility] Notified:: Y Was contact made?: Yes If yes, spoke with:: DR RICHARDS Time called:: 17:25 09/09/17 16:52 Consult to Physician [CONS] Routine Consulting Provider: NONA DORANTES Reason For Exam: diavbetic foot infection, cellulitis with gangrene Place consult to:: ID Notified:: Y Time called:: 17:30 Comment:: LEFT MESSAGE ON CELL PHONE 09/09/17 17:47 Consult to Wound/ET Nurse [CONS] Routine Reason For Exam: wound eval bilateral feet/toes 09/10/17 14:53 Consult to Dietitian/Nutrition [CONS] Routine Physician Instructions: Reason For Exam: Reason for Consult: Diet education 09/12/17 10:39 Consult to Physician [CONS] Routine Consulting Provider: KERRY SALCIDO Reason For Exam: Diabetic foot ulcers/gangrene Place consult to:: DR. SALCIDO Notified:: A.S. Phone number called:: [phone] Was contact made?: Yes If yes, spoke with:: HIRA Time called:: 12:38 09/12/17 16:46 Consult to Physician [CONS] Routine Consulting Provider: RENA SANCHEZ Reason For Exam: Diabetic foot /gangrene toes Place consult to:: DR. SIU Notified:: A.S. Phone number called:: [phone] Was contact made?: Yes If yes, spoke with:: ZOE Time called:: 18:39 Comment:: THOMAS NOTIFIED Primary care physician: TERRELL CHAPA Hospitalization Condition: Stable Disposition: DC-01 TO HOME OR SELFCARE Time spent for discharge: 32 min Core Measure Documentation - Palliative Care Palliative Care/ Comfort Measures: Not Applicable - Core Measures Any of the following diagnoses?: none Exam - Constitutional Vitals: Temp Pulse Resp BP Pulse Ox 98.1 F 86 18 112/58 94 09/16/17 14:47 09/16/17 14:47 09/16/17 14:47 09/16/17 14:47 09/16/17 14:47 General appearance: Present: no acute distress, well-nourished - EENT Eyes: Present: PERRL, EOM intact - Neck Neck: Present: supple, enlarged thyroid - Respiratory Respiratory effort: normal Respiratory: bilateral: diminished, negative: rales, rhonchi, wheezing - Cardiovascular Rhythm: regular Heart Sounds: Present: S1 & S2 - Extremities Extremities: abnormal (cellulitis, diabetic foot, gangrenous tip of the toes) - Abdominal General gastrointestinal: Present: soft, non-tender, non-distended, normal bowel sounds - Integumentary Integumentary: Present: clear, warm - Musculoskeletal Musculoskeletal: strength equal bilaterally - Psychiatric Psychiatric: appropriate mood/affect, cooperative - Neurologic Neurologic: CNII-XII intact, moves all extremities Plan Activity: no restrictions, advance as tolerated Diet: diabetic Wound: per wound nurse instructions Additional Instructions: Outpatient wound care in 3 -4 days. Patient refused home health nurse/home wound care Follow up with: TERRELL CHAPA MD [Primary Care Provider] - 3-5 Days KERRY SALCIDO DPM [Staff Physician] - 7 Days RENA SANCHEZ MD [Staff Physician] - 7 Days Prescriptions: guaiFENesin [Robitussin] 200 mg PO Q6H PRN #20 tablet PRN Reason: Cough Insulin NPH/Regular [NovoLIN 70/30] 35 unit SUB-Q BIDDIAB 30 Days units
[2017-09-16 18:08] VITALS: BP 145/60
== END 2017-09-16 19:02 | disposition home or self-care (01) | DRG 300 ==
LOC: ED 05:36 → 3A 16:42
PROVIDERS: ADMIT Internal Medicine; ATTEND Internal Medicine
DX: E11.52 Type 2 diabetes mellitus with diabetic peripheral angiopathy with gangrene (principal); E87.1 Hypo-osmolality and hyponatremia; E11.65 Type 2 diabetes mellitus with hyperglycemia; I10 Essential (primary) hypertension; E11.628 Type 2 diabetes mellitus with other skin complications; L03.032 Cellulitis of left toe; Z88.8 Allergy status to other drugs, medicaments and biological substances; Z79.4 Long term (current) use of insulin; F32.9 Major depressive disorder, single episode, unspecified; Z98.51 Tubal ligation status; Z83.3 Family history of diabetes mellitus; Z82.3 Family history of stroke; Z82.49 Family history of ischemic heart disease and other diseases of the circulatory system; Z90.49 Acquired absence of other specified parts of digestive tract; Z91.19 Patient's noncompliance with other medical treatment and regimen; J20.9 Acute bronchitis, unspecified
CPT/HCPCS: 36415; 71020; 73721; 80048; 80053; 80202; 82140; 82962; 83036; 83735; 85025; 86140; 87040; 87076; 87116; 87186; 90471; 90715; 93922; 96365; 96375; 99285; J1644; J1815; J2270; J2405; J2543; J3370; J7030; J7040; J7050

== ENCOUNTER 2018-01-14 14:05 | Inpatient (IN) | payer OTHER ==
[2018-01-14 14:34] LABS: Basophils # (Auto) 0.1 K/mm3 (0.0-0.1); Eosinophils # (Auto) 0.2 K/mm3 (0.0-0.4); Eosinophils % (Auto) 1.8 % (0.0-4.3); Monocytes # (Auto) 0.3 K/mm3 (0.0-0.8); Monocytes % (Auto) 3.3 % (0.0-7.3)
[2018-01-14 14:42] LABS: Blood Urea Nitrogen 17 mg/dL (7-17); Hemolysis Index 384
[2018-01-14 14:51] LABS: BUN/Creatinine Ratio 85
[2018-01-14 15:23] LABS: Calcium 8.8 mg/dL (8.4-10.2)
[2018-01-14 15:25] LABS: Bacteria,Urine 1+ /HPF (Negative); Bilirubin,Urine NEG (Negative); Blood,Urine NEG (Negative); Color,Urine Straw (Yellow); Protein,Urine <15 mg/dL mg/dL (Negative); Urobilinogen,Urine < 2.0 mg/dL (<2.0)
[2018-01-14 15:26] LABS: RBC,Urine < 1.0 /HPF (0.0-6.0)
[2018-01-14 15:37] LABS: Basophils % (Auto) 0.8 % (0.0-1.8); Hemoglobin 12.9 gm/dl (10.1-14.3); Lymphocytes % (Auto) 34.5 % (13.4-35.0)
[2018-01-14 15:40] LABS: Hematocrit 37.6 % (30.3-42.9); Mean Corpuscular HGB Conc 35 % (30-34); Mean Corpuscular Hemoglobin 27 pg (28-32); Mean Corpuscular Volume 78 fl (79-97); Platelet Count 333 K/mm3 (140-440); Red Cell Distribution Width 15.6 % (13.2-15.2)
[2018-01-14 15:45] LABS: Lymphocytes # (Auto) 2.7 K/mm3 (1.2-5.4); Red Blood Count 4.83 M/mm3 (3.65-5.03)
[2018-01-14] MEDS ORDERED: NACL 0.9% 1000 ML 1,000 ML IV ONE ×2 (16:27)
[2018-01-14] MEDS ORDERED: HumuLIN R IV ONE (16:27)
[2018-01-14] MEDS ORDERED: PEPCID IV ONE (16:27)
[2018-01-14] MEDS ORDERED: ZOFRAN IV ONE (16:27)
[2018-01-14] MEDS ORDERED: CLEOCIN 600 MG/50 mL 600 MG/50 ML BAG IV ONE (16:27)
[2018-01-14] MEDS ORDERED: TORADOL IV ONE (16:27)
--- NOTE | 2018-01-14 16:47 | Emergency Department Report ---
ED General Adult HPI - General Chief complaint: Hyperglycemia Stated complaint: HIGH BS/LEFT FOOT PAIN Time Seen by Provider: 01/14/18 16:26 Source: patient Mode of arrival: Ambulatory Limitations: No Limitations - History of Present Illness Initial comments: Patient is a 52-year-old female who is presenting with bilateral foot pain. Patient is diabetic and has had his wounds on the bilateral feet for approximately 2 weeks that progressively worsening. Patient states that she has pain 7/10 aching. Patient also states that she is been off of her insulin until she ran out for approximately 1 week. Patient states she's had some nausea but no vomiting. Patient denies any chest pain shortness of breath abdominal pain diarrhea and headaches at this time. Patient does state that she has had some subjective fevers as well. Patient here for evaluation. - Related Data Home Medications Medication Instructions Recorded Confirmed Last Taken Carisoprodol [Soma] 350 mg PO BID 03/22/16 09/09/17 09/08/17 Doxepin [SINEquan] 200 mg PO QHS 05/09/17 09/09/17 09/08/17 Glimepiride [Amaryl] 4 mg PO BID 05/09/17 09/09/17 09/08/17 Verapamil HCl [Verelan] 360 mg PO QDAY 05/09/17 09/09/17 09/08/17 Metformin HCl 1,000 mg PO BID 09/09/17 09/09/17 09/08/17 Previous Rx's Medication Instructions Recorded Last Taken Type Butalb/Acetamin/Caff 50-325-40 1 each PO Q4H PRN #30 tablet 03/27/16 09/08/17 Rx [Fioricet] Ciprofloxacin HCl [Cipro] 500 mg PO Q12H #14 tablet 09/16/17 Unknown Rx Insulin NPH/Regular [NovoLIN 70/30] 35 unit SUB-Q BIDDIAB 30 Days 09/16/17 Unknown Rx units Insulin Regular, Human [Novolin R] 3 units IJ ACHS 30 Days vial 09/16/17 Unknown Rx guaiFENesin [Robitussin] 200 mg PO Q6H PRN #20 tablet 09/16/17 Unknown Rx Allergies Allergy/AdvReac Type Severity Reaction Status Date / Time meperidine HCl [From Demerol] Allergy Unknown Verified 05/09/17 16:15 ED Review of Systems ROS: Stated complaint: HIGH BS/LEFT FOOT PAIN Other details as noted in HPI Chest chest Comment: All other systems reviewed and negative ED Past Medical Hx - Past Medical History Hx Hypertension: Yes Hx Congestive Heart Failure: No Hx Diabetes: Yes Hx Headaches / Migraines: Yes Hx Psychiatric Treatment: Yes (depression) Hx Asthma: No Hx COPD: No Hx HIV: No - Surgical History Hx Cholecystectomy: Yes Additional Surgical History: TUBAL LIGATION - Social History Smoking Status: Never Smoker Substance Use Type: None - Medications Home Medications: Home Medications Medication Instructions Recorded Confirmed Last Taken Type Carisoprodol [Soma] 350 mg PO BID 03/22/16 09/09/17 09/08/17 History Butalb/Acetamin/Caff 50-325-40 1 each PO Q4H PRN #30 tablet 03/27/16 09/09/17 Rx [Fioricet] Doxepin [SINEquan] 200 mg PO QHS 05/09/17 09/09/17 09/08/17 History Glimepiride [Amaryl] 4 mg PO BID 05/09/17 09/09/17 09/08/17 History Verapamil HCl [Verelan] 360 mg PO QDAY 05/09/17 09/09/17 09/08/17 History Metformin HCl 1,000 mg PO BID 09/09/17 09/09/17 09/08/17 History Ciprofloxacin HCl [Cipro] 500 mg PO Q12H #14 tablet 09/16/17 Unknown Rx Insulin NPH/Regular [NovoLIN 70/30] 35 unit SUB-Q BIDDIAB 30 Days 09/16/17 Unknown Rx units Insulin Regular, Human [Novolin R] 3 units IJ ACHS 30 Days vial 09/16/17 Unknown Rx guaiFENesin [Robitussin] 200 mg PO Q6H PRN #20 tablet 09/16/17 Unknown Rx ED Physical Exam - General Limitations: No Limitations General appearance: alert, in no apparent distress - Head Head exam: Present: atraumatic, normocephalic - Eye Eye exam: Present: normal appearance - ENT ENT exam: Present: mucous membranes moist - Neck Neck exam: Present: normal inspection - Respiratory Respiratory exam: Present: normal lung sounds bilaterally. Absent: respiratory distress, rales, rhonchi - Cardiovascular Cardiovascular Exam: Present: regular rate, normal rhythm. Absent: systolic murmur, diastolic murmur, rubs, gallop - GI/Abdominal GI/Abdominal exam: Present: soft, normal bowel sounds. Absent: distended, tenderness, guarding - Extremities Exam Extremities exam: Absent: normal inspection (patient on the right lower extremity is showing ulceration to the posterior great toes surrounding erythema. The patient is a left fluids on the fourth digit she has erythema to the toe and some dry gangrene appearance to the tip.) - Back Exam Back exam: Present: normal inspection - Neurological Exam Neurological exam: Present: alert, oriented X3 - Psychiatric Psychiatric exam: Present: normal affect, normal mood - Skin Skin exam: Present: warm, dry, intact, normal color. Absent: rash ED Course Vital Signs 01/14/18 14:08 Temperature 98 F Pulse Rate 114 H Respiratory 18 Rate Blood Pressure 116/62 O2 Sat by Pulse 100 Oximetry ED Medical Decision Making - Lab Data Result diagrams: 01/14/18 14:20 01/14/18 14:20 Lab Results 01/14/18 01/14/18 01/14/18 Range/Units 14:20 14:20 14:20 WBC 7.9 (4.5-11.0) K/mm3 RBC 4.83 (3.65-5.03) M/mm3 Hgb 12.9 (10.1-14.3) gm/dl Hct 37.6 (30.3-42.9) % MCV 78 L (79-97) fl MCH 27 L (28-32) pg MCHC 35 H (30-34) % RDW 15.6 H (13.2-15.2) % Plt Count 333 (140-440) K/mm3 Lymph % (Auto) 34.5 (13.4-35.0) % [place] % (Auto) 3.3 (0.0-7.3) % Eos % (Auto) 1.8 (0.0-4.3) % Baso % (Auto) 0.8 (0.0-1.8) % Lymph # 2.7 (1.2-5.4) K/mm3 Dillon # 0.3 (0.0-0.8) K/mm3 Eos # 0.2 (0.0-0.4) K/mm3 Baso # 0.1 (0.0-0.1) K/mm3 Seg Neutrophils % 63.6 (40.0-70.0) % Seg Neutrophils # 5.7 (1.8-7.7) K/mm3 VBG pH 7.360 (7.320-7.420) Sodium 121 L (137-145) mmol/L Potassium 6.0 H (3.6-5.0) mmol/L Chloride 80.6 L (98-107) mmol/L Carbon Dioxide 26 (22-30) mmol/L Anion Gap 20 mmol/L BUN 17 (7-17) mg/dL Creatinine < 0.2 L (0.7-1.2) mg/dL Estimated GFR > 60 ml/min BUN/Creatinine Ratio 85 % Glucose 706 H* (65-100) mg/dL Calcium 8.8 (8.4-10.2) mg/dL Urine Color (Yellow) Urine Turbidity (Clear) Urine pH (5.0-7.0) Ur Specific [place] (1.003-1.030) Urine Protein (Negative) mg/dL Urine Glucose (UA) (Negative) mg/dL Urine Ketones (Negative) mg/dL Urine Blood (Negative) Urine Nitrite (Negative) Urine Bilirubin (Negative) Urine Urobilinogen (<2.0) mg/dL Ur Leukocyte Esterase (Negative) Urine WBC (Auto) (0.0-6.0) /HPF Urine RBC (Auto) (0.0-6.0) /HPF U Epithel Cells (Auto) (0-13.0) /HPF Urine Bacteria (Auto) (Negative) /HPF 01/14/18 Range/Units 14:36 WBC (4.5-11.0) K/mm3 RBC (3.65-5.03) M/mm3 Hgb (10.1-14.3) gm/dl Hct (30.3-42.9) % MCV (79-97) fl MCH (28-32) pg MCHC (30-34) % RDW (13.2-15.2) % Plt Count (140-440) K/mm3 Lymph % (Auto) (13.4-35.0) % [place] % (Auto) (0.0-7.3) % Eos % (Auto) (0.0-4.3) % Baso % (Auto) (0.0-1.8) % Lymph # (1.2-5.4) K/mm3 [place] # (0.0-0.8) K/mm3 Eos # (0.0-0.4) K/mm3 Baso # (0.0-0.1) K/mm3 Seg Neutrophils % (40.0-70.0) % Seg Neutrophils # (1.8-7.7) K/mm3 VBG pH (7.320-7.420) Sodium (137-145) mmol/L Potassium (3.6-5.0) mmol/L Chloride (98-107) mmol/L Carbon Dioxide (22-30) mmol/L Anion Gap mmol/L BUN (7-17) mg/dL Creatinine (0.7-1.2) mg/dL Estimated GFR ml/min BUN/Creatinine Ratio % Glucose (65-100) mg/dL Calcium (8.4-10.2) mg/dL Urine Color Straw (Yellow) Urine Turbidity Clear (Clear) Urine pH 6.0 (5.0-7.0) Ur Specific [place] 1.017 (1.003-1.030) Urine Protein <15 mg/dl (Negative) mg/dL Urine Glucose (UA) >=500 (Negative) mg/dL Urine Ketones Tr (Negative) mg/dL Urine Blood Neg (Negative) Urine Nitrite Neg (Negative) Urine Bilirubin Neg (Negative) Urine Urobilinogen < 2.0 (<2.0) mg/dL Ur Leukocyte Esterase Neg (Negative) Urine WBC (Auto) 1.0 (0.0-6.0) /HPF Urine RBC (Auto) < 1.0 (0.0-6.0) /HPF U Epithel Cells (Auto) 1.0 (0-13.0) /HPF Urine Bacteria (Auto) 1+ (Negative) /HPF - Medical Decision Making Patient is a 52-year-old female presenting with swelling and redness to bilateral feet as well as hyperglycemia. Not believe the patient is in DKA at this time is only trace ketones. Serum bicarbonate is within normal limits. Patient most likely has elevated potassium low sodium secondary to the elevated glucose. Patient will be aggressively hydrated with 2 L normal saline LI's will be rechecked. Patient be started on antibiotics for her foot infections will be admitted to Dr. Becerril at this time. Critical care attestation.: If time is entered above; I have spent that time in minutes in the direct care of this critically ill patient, excluding procedure time. ED Disposition Clinical Impression: Hyperglycemia, Hyponatremia, Diabetic foot infection, Hyperkalemia Disposition: OP ADMIT IP TO THIS HOSP Is pt being admited?: Yes Does the pt Need Aspirin: No Condition: Poor Instructions: Diabetes Mellitus Type 2 in Adults (ED) Referrals: PRIMARY CARE, [Primary Care Provider] - 3-5 Days
[2018-01-14] MEDS ORDERED: ZOSYN/NS 4.5GM/100ML 4.5 GM/100 ML VIAL IV SCH (17:15)
[2018-01-14] MEDS ORDERED: NACL 0.9% 1000 ML 1,000 ML ONE (19:25)
--- NOTE | 2018-01-14 23:32 | History and Physical Report ---
History of Present Illness Date of examination: 01/14/18 Date of admission: 01/14/18 16:50 Chief complaint: Ulcers both feet History of present illness: History of Present Illness 52-year-old female with IDDM presenting with bilateral foot pain. Patient is diabetic and has had wounds on the both feet for approximately 2 weeks whichare progressively progressively worsening. Patient states that she has pain 7/10 aching. Patient also states that she is been off of her insulin for approximately 1 week. Patient states she's had some nausea but no vomiting. Patient denies any chest pain shortness of breath abdominal pain diarrhea and headaches at this time. Patient does state that she has had some subjective fevers as well. Patient here for evaluation. Past Medical History Hypertension: Yes Diabetes: Yes Headaches / Migraines: Yes Psychiatric Treatment: Yes (depression) Surgical History Hx Cholecystectomy: Yes Additional Surgical History: TUBAL LIGATION Social History Smoking Status: Never Smoker Substance Use Type: None Medications Home Medications: Home Medications Medication Instructions Recorded Confirmed Last Taken Type Carisoprodol [Soma] 350 mg PO BID 03/22/16 09/09/17 09/08/17 History Butalb/Acetamin/Caff 50-325-40 1 each PO Q4H PRN #30 tablet 03/27/16 09/09/17 Rx [Fioricet] Doxepin [SINEquan] 200 mg PO QHS 05/09/17 09/09/17 09/08/17 History Glimepiride [Amaryl] 4 mg PO BID 05/09/17 09/09/17 09/08/17 History Verapamil HCl [Verelan] 360 mg PO QDAY 05/09/17 09/09/17 09/08/17 History Metformin HCl 1,000 mg PO BID 09/09/17 09/09/17 09/08/17 History Ciprofloxacin HCl [Cipro] 500 mg PO Q12H #14 tablet 09/16/17 Unknown Rx Insulin NPH/Regular [NovoLIN 70/30] 35 unit SUB-Q BIDDIAB 30 Days 09/16/17 Unknown Rx units Insulin Regular, Human [Novolin R] 3 units IJ ACHS 30 Days vial 09/16/17 Unknown Rx guaiFENesin [Robitussin] 200 mg PO Q6H PRN #20 tablet 09/16/17 Unknown Rx Medications and Allergies Allergies Allergy/AdvReac Type Severity Reaction Status Date / Time meperidine HCl [From Demerol] Allergy Unknown Verified 05/09/17 16:15 Home Medications Medication Instructions Recorded Confirmed Last Taken Type Carisoprodol [Soma] 350 mg PO BID 03/22/16 01/14/18 09/08/17 History Butalb/Acetamin/Caff 50-325-40 1 each PO Q4H PRN #30 tablet 03/27/16 01/14/18 Rx [Fioricet] Doxepin [SINEquan] 200 mg PO QHS 05/09/17 01/14/18 09/08/17 History Glimepiride [Amaryl] 4 mg PO BID 05/09/17 01/14/18 09/08/17 History Verapamil HCl [Verelan] 360 mg PO QDAY 05/09/17 01/14/18 09/08/17 History Metformin HCl 1,000 mg PO BID 09/09/17 01/14/18 09/08/17 History Ciprofloxacin HCl [Cipro] 500 mg PO Q12H #14 tablet 09/16/17 01/14/18 Unknown Rx Insulin NPH/Regular [NovoLIN 70/30] 35 unit SUB-Q BIDDIAB 30 Days 09/16/1701/14 Unknown Rx units Active Meds: Active Medications Piperacillin Sod/Tazobactam Sod (Zosyn/Ns 4.5gm/100ml) 4.5 gm in 100 mls @ 200 mls/hr IV ONCE JANE Last Admin: 01/14/18 18:18 Dose: 200 mls/hr Sodium Chloride (Nacl 0.9% 1000 Ml) 1,000 mls @ 150 mls/hr IV DIRECT [facility] Review of Systems All systems: negative Constitutional: weakness, no weight loss, no weight gain, no fever, no chills, no sweats Ears, nose, mouth and throat: no dysphagia, no hoarseness, no sore throat, no swelling in mouth Breasts: deferred Cardiovascular: no chest pain, no orthopnea, no palpitations, no rapid/ irregular heart beat, no edema, no syncope, no lightheadedness, no shortness of breath Respiratory: no cough, no cough with sputum, no excessive sputum, no hemoptysis , no shortness of breath, no dyspnea on exertion Gastrointestinal: nausea, no abdominal pain Genitourinary Female: no dysuria, no urinary frequency, no urgency Menstruation: ammenorrhea Rectal: no pain Musculoskeletal: shooting leg pain, no neck stiffness, no neck pain, no shooting arm pain, no arm numbness/tingling Integumentary: redness (Both feet danita toes) Neurological: no seizures, no syncope Psychiatric: no anxiety, no memory loss, no change in sleep habits, no sleep disturbances Endocrine: no cold intolerance, no heat intolerance, no weight change Hematologic/Lymphatic: no easy bruising, no easy bleeding Allergic/Immunologic: no urticaria, no allergic rhinitis, no wheezing Exam - Constitutional Vitals: Temp Pulse Resp BP Pulse Ox 97.6 F 94 H 20 140/75 98 01/14/18 20:35 01/14/18 20:35 01/14/18 20:35 01/14/18 20:35 01/14/18 20:35 General appearance: Present: no acute distress, well-nourished - EENT Eyes: Present: PERRL ENT: hearing intact, clear oral mucosa - Neck Neck: Present: supple, normal ROM - Respiratory Respiratory effort: normal Respiratory: bilateral: CTA - Cardiovascular Heart rate: 80 Rhythm: regular Heart Sounds: Present: S1 & S2. Absent: rub, click - Extremities Extremities: pulses symmetrical, No edema Extremity abnormal: ulceration (Both feet Rt Great toe and Left 2nd 3rd and 4th toe with Erythema ) Peripheral Pulses: within normal limits - Abdominal General gastrointestinal: Present: soft, non-tender, non-distended, normal bowel sounds Female genitourinary: Present: normal - Integumentary Integumentary: Present: clear, warm, dry - Musculoskeletal Musculoskeletal: gait normal, strength equal bilaterally - Psychiatric Psychiatric: appropriate mood/affect, intact judgment & insight - Neurologic Neurologic: CNII-XII intact, moves all extremities Results - Labs CBC & Chem 7: 01/14/18 14:20 01/14/18 14:20 Labs: Laboratory Last Values WBC 7.9 K/mm3 (4.5-11.0) 01/14/18 14:20 RBC 4.83 M/mm3 (3.65-5.03) 01/14/18 14:20 Hgb 12.9 gm/dl (10.1-14.3) 01/14/18 14:20 Hct 37.6 % (30.3-42.9) 01/14/18 14:20 MCV 78 fl (79-97) L 01/14/18 14:20 MCH 27 pg (28-32) L 01/14/18 14:20 MCHC 35 % (30-34) H 01/14/18 14:20 RDW 15.6 % (13.2-15.2) H 01/14/18 14:20 Plt Count 333 K/mm3 (140-440) 01/14/18 14:20 Lymph % (Auto) 34.5 % (13.4-35.0) 01/14/18 14:20 [place] % (Auto) 3.3 % (0.0-7.3) 01/14/18 14:20 Eos % (Auto) 1.8 % (0.0-4.3) 01/14/18 14:20 Baso % (Auto) 0.8 % (0.0-1.8) 01/14/18 14:20 Lymph # 2.7 K/mm3 (1.2-5.4) 01/14/18 14:20 [place] # 0.3 K/mm3 (0.0-0.8) 01/14/18 14:20 Eos # 0.2 K/mm3 (0.0-0.4) 01/14/18 14:20 Baso # 0.1 K/mm3 (0.0-0.1) 01/14/18 14:20 Seg Neutrophils % 63.6 % (40.0-70.0) 01/14/18 14:20 Seg Neutrophils # 5.7 K/mm3 (1.8-7.7) 01/14/18 14:20 VBG pH 7.360 (7.320-7.420) 01/14/18 14:20 Sodium 121 mmol/L (137-145) L 01/14/18 14:20 Potassium 6.0 mmol/L (3.6-5.0) H 01/14/18 14:20 Chloride 80.6 mmol/L (98-107) L 01/14/18 14:20 Carbon Dioxide 26 mmol/L (22-30) 01/14/18 14:20 Anion Gap 20 mmol/L 01/14/18 14:20 BUN 17 mg/dL (7-17) 01/14/18 14:20 Creatinine < 0.2 mg/dL (0.7-1.2) L 01/14/18 14:20 Estimated GFR > 60 ml/min 01/14/18 14:20 BUN/Creatinine Ratio 85 % 01/14/18 14:20 Glucose 706 mg/dL (65-100) H* 01/14/18 14:20 POC Glucose 391 (70-105) H 01/14/18 22:49 Calcium 8.8 mg/dL (8.4-10.2) 01/14/18 14:20 Urine Color Straw (Yellow) 01/14/18 14:36 Urine Turbidity Clear (Clear) 01/14/18 14:36 Urine pH 6.0 (5.0-7.0) 01/14/18 14:36 Ur Specific [place] 1.017 (1.003-1.030) 01/14/18 14:36 Urine Protein <15 mg/dl mg/dL (Negative) 01/14/18 14:36 Urine Glucose (UA) >=500 mg/dL (Negative) 01/14/18 14:36 Urine Ketones Tr mg/dL (Negative) 01/14/18 14:36 Urine Blood Neg (Negative) 01/14/18 14:36 Urine Nitrite Neg (Negative) 01/14/18 14:36 Urine Bilirubin Neg (Negative) 01/14/18 14:36 Urine Urobilinogen < 2.0 mg/dL (<2.0) 01/14/18 14:36 Ur Leukocyte Esterase Neg (Negative) 01/14/18 14:36 Urine WBC (Auto) 1.0 /HPF (0.0-6.0) 01/14/18 14:36 Urine RBC (Auto) < 1.0 /HPF (0.0-6.0) 01/14/18 14:36 U Epithel Cells (Auto) 1.0 /HPF (0-13.0) 01/14/18 14:36 Urine Bacteria (Auto) 1+ /HPF (Negative) 01/14/18 14:36 Short CBC 01/14/18 Range/Units 14:20 WBC 7.9 (4.5-11.0) K/mm3 Hgb 12.9 (10.1-14.3) gm/dl Hct 37.6 (30.3-42.9) % Plt Count 333 (140-440) K/mm3 BMP 01/14/18 14:20 Sodium 121 L Potassium 6.0 H Chloride 80.6 L Carbon Dioxide 26 BUN 17 Creatinine < 0.2 L Glucose 706 H* Calcium 8.8 Urine 01/14/18 Range/Units 14:36 Urine Color Straw (Yellow) Urine pH 6.0 (5.0-7.0) Ur Specific [place] 1.017 (1.003-1.030) Urine Protein <15 mg/dl (Negative) mg/dL Urine Glucose (UA) >=500 (Negative) mg/dL Assessment and Plan Advance Directives: Yes (Full code) VTE prophylaxis?: Chemical Plan of care discussed with patient/family: Yes - Patient Problems (1) Hyperosmolar non-ketotic state in patient with type 2 diabetes mellitus Current Visit: No Status: Acute Plan to address problem: IV fluids and High dose S/S scale coverage Check A1c Patient non compliant Glimepride discontinued Humalog 70/30 increased to 40 units Bid. Patient to apply for Medicaid--Maybe eligible b/c of the income being below minimum (2) Depression Current Visit: No Status: Chronic Qualifiers: Depression Type: unspecified Qualified Code(s): F32.9 - Major depressive disorder, single episode, unspecified Plan to address problem: Cont Doxepin (3) Diabetic foot infection Current Visit: Yes Status: Acute Plan to address problem: Started on IV Zosyn and vancomycin Wound care consult Surgery consult Z (4) Hyperkalemia Current Visit: Yes Status: Acute Plan to address problem: Should resolve with correction of BG levels (5) Toe infection Current Visit: No Status: Acute Plan to address problem: Wound care and Iv abx Surgery consult (6) HTN (hypertension) Current Visit: Yes Status: Chronic Qualifiers: Hypertension type: essential hypertension Qualified Code(s): I10 - Essential (primary) hypertension Plan to address problem: Cont Verapamil (7) DVT prophylaxis Current Visit: No Status: Acute Plan to address problem: On Heparin/Lovenox
[2018-01-15] MEDS ORDERED: PERCOCET 5/325 PO PRN (00:42)
[2018-01-15] MEDS: SOMA PO SCH ×3 (01:52→23:00)
[2018-01-15] MEDS: ZOFRAN IV PRN ×2 (01:52→23:00)
[2018-01-15] MEDS: NACL 0.9% 1000 ML 1,000 ML IV SCH ×4 (01:55→18:39)
[2018-01-15] MEDS ORDERED: D50W (25GM) Syringe IV PRN (05:15)
[2018-01-15] MEDS ORDERED: ZOSYN/NS 3.375GM/50ML 3.375 GM/50 ML BAG IV SCH (06:00)
[2018-01-15] MEDS ORDERED: VANCOMYCIN PHARMACY TO DOSE IV SCH (06:00)
[2018-01-15 06:08] LABS: Basophils # (Auto) 0.1 K/mm3 (0.0-0.1); Eosinophils # (Auto) 0.2 K/mm3 (0.0-0.4); Eosinophils % (Auto) 3.4 % (0.0-4.3); Lymphocytes # (Auto) 2.6 K/mm3 (1.2-5.4); Lymphocytes % (Auto) 35.3 % (13.4-35.0); Mean Corpuscular HGB Conc 37 % (30-34); Mean Corpuscular Hemoglobin 29 pg (28-32); Mean Corpuscular Volume 78 fl (79-97); Monocytes # (Auto) 0.2 K/mm3 (0.0-0.8); Monocytes % (Auto) 2.8 % (0.0-7.3); Platelet Count 248 K/mm3 (140-440); Red Blood Count 4.62 M/mm3 (3.65-5.03); Red Cell Distribution Width 15.3 % (13.2-15.2)
[2018-01-15 06:10] LABS: Hemoglobin 13.3 gm/dl (10.1-14.3)
[2018-01-15 06:27] LABS: Albumin 3.2 g/dL (3.9-5); BUN/Creatinine Ratio 23; Blood Urea Nitrogen 9 mg/dL (7-17); Calcium 8.2 mg/dL (8.4-10.2); Hemolysis Index 136
[2018-01-15 06:52] LABS: Alanine Aminotransferase < 5 units/L (7-56)
--- NOTE | 2018-01-15 07:31 | Progress Note ---
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 Add SSRI - DVT prophylaxis With Lovenox Spent 33 min with pt Subjective Date of service: 01/15/18 Principal diagnosis: hyperosmolar nonketotic stae, DMT2, ldft foot infection Interval history: Pt seen and examined. No new complaint. No fever feeling better Objective - Constitutional Vitals: Vital Signs - 12hr 01/14/18 01/14/18 01/14/18 19:31 19:41 19:51 Temperature Pulse Rate 99 H 97 H 92 H Respiratory 20 12 9 L Rate Blood Pressure 135/73 135/73 135/73 Blood Pressure [Right] O2 Sat by Pulse 93 96 98 Oximetry 01/14/18 01/14/18 01/14/18 20:00 20:11 20:26 Temperature Pulse Rate 92 H 94 H Respiratory 16 12 Rate Blood Pressure 143/88 143/88 143/88 Blood Pressure [Right] O2 Sat by Pulse 97 97 79 L Oximetry 01/14/18 01/14/18 01/14/18 20:35 20:50 23:53 Temperature 97.6 F 98.3 F Pulse Rate 94 H 100 H Respiratory 20 20 Rate Blood Pressure 143/88 154/76 Blood Pressure 140/75 [Right] O2 Sat by Pulse 98 93 Oximetry General appearance: Present: no acute distress, well-nourished - EENT Eyes: PERRL, EOM intact - Neck Neck: supple, normal ROM - Respiratory Respiratory effort: normal Respiratory: bilateral: CTA - Cardiovascular Rhythm: regular Heart Sounds: Present: S1 & S2. Absent: gallop, rub Extremities: pulses intact, No edema, normal color, Full ROM - Gastrointestinal General gastrointestinal: Present: soft, non-tender, non-distended, normal bowel sounds - Integumentary Integumentary: clear, warm, dry - Musculoskeletal Musculoskeletal: 1, strength equal bilaterally - Neurologic Neurologic: moves all extremities - Psychiatric Psychiatric: memory intact, appropriate mood/affect, intact judgment & insight - Labs CBC & Chem 7: 01/15/18 05:48 01/15/18 05:48 Labs: Abnormal lab results 01/14/18 01/14/18 01/14/18 Range/Units 14:20 14:20 16:53 MCV 78 L (79-97) fl MCH 27 L (28-32) pg MCHC 35 H (30-34) % RDW 15.6 H (13.2-15.2) % Lymph % (Auto) (13.4-35.0) % Sodium 121 L (137-145) mmol/L Potassium 6.0 H (3.6-5.0) mmol/L Chloride 80.6 L (98-107) mmol/L Creatinine < 0.2 L (0.7-1.2) mg/dL Glucose 706 H* (65-100) mg/dL POC Glucose > 500 H (70-105) Calcium (8.4-10.2) mg/dL AST (5-40) units/L ALT (7-56) units/L Albumin (3.9-5) g/dL 01/14/18 01/14/18 01/15/18 Range/Units 18:22 22:49 05:48 MCV 78 L (79-97) fl MCH (28-32) pg MCHC 37 H (30-34) % RDW 15.3 H (13.2-15.2) % Lymph % (Auto) 35.3 H (13.4-35.0) % Sodium (137-145) mmol/L Potassium (3.6-5.0) mmol/L Chloride (98-107) mmol/L Creatinine (0.7-1.2) mg/dL Glucose (65-100) mg/dL POC Glucose 481 H 391 H (70-105) Calcium (8.4-10.2) mg/dL AST (5-40) units/L ALT (7-56) units/L Albumin (3.9-5) g/dL 01/15/18 01/15/18 Range/Units 05:48 05:51 MCV (79-97) fl MCH (28-32) pg MCHC (30-34) % RDW (13.2-15.2) % Lymph % (Auto) (13.4-35.0) % Sodium 132 L D (137-145) mmol/L Potassium (3.6-5.0) mmol/L Chloride 93.0 L (98-107) mmol/L Creatinine 0.4 L D (0.7-1.2) mg/dL Glucose 320 H (65-100) mg/dL POC Glucose 289 H (70-105) Calcium 8.2 L (8.4-10.2) mg/dL AST < 5 L (5-40) units/L ALT < 5 L (7-56) units/L Albumin 3.2 L (3.9-5) g/dL
[2018-01-15] MEDS ORDERED: VANCOMYCIN 1,750 MG in NACL 0.9% 500 ML 500 ML IV ONE (08:00)
[2018-01-15] MEDS: GLUCOPHAGE PO SCH ×2 (08:19→18:31)
[2018-01-15] MEDS: HumaLOG SUB-Q SCH ×4 (08:21→23:03)
[2018-01-15] MEDS: FIORICET PO PRN ×2 (08:27→13:05)
[2018-01-15] MEDS: CALAN SR PO SCH (09:54)
[2018-01-15] MEDS ORDERED: SOMA PO SCH (10:00)
[2018-01-15] MEDS ORDERED: ZOSYN/NS 4.5GM/100ML 4.5 GM/100 ML VIAL IV SCH (14:00)
--- NOTE | 2018-01-15 17:33 | Progress Note ---
Assessment and Plan Assessment: 1) Tachycardia: Probably due to uncontrolled diabetes/dehydration. No evidence of sepsis. 2) diabetes mellitus: Uncontrolled 3) Peripheral neuropathy 4) Right great toe ulcer and left toes ulcers. Both feet with callus and ulcers no obvious deep infection. 5) Peripheral neuropathy 6) Noncompliant with diabetes medications 7) History of left forefoot infection / 2nd-5th toes necrotic changes likely diabetic foot infection with cellulitis. MRI showed cellulitis, no osteomyelitis or abscess seen. CRP=7. Art US normal flow. Wound cx + MSSA, Acinetobacter and Enterococcus. Plan: -X-ray of the feet -Wound care consultation -Stop vancomycin and zosyn -Start Unasyn -Upon discharge will do Augmentin 875 mg by mouth twice a day for 7 days -Needs close follow-up with outpatient wound clinic -Needs close follow-up with primary care physician for diabetes control [place] Subjective Date of service: 01/15/18 Principal diagnosis: hyperosmolar nonketotic stae, DMT2, ldft foot infection Interval history: 52 years old female with history of uncontrolled diabetes, hypertension, well known to ID due to previous admission on 09/09/2017 due to 5 day-history of left forefoot edema, erythema and drainage. She was found with left forefoot infection / 2nd-5th toes necrotic changes likely diabetic foot infection with cellulitis. MRI showed cellulitis, no osteomyelitis or abscess seen. CRP=7. Art US normal flow. Wound cx + MSSA, Acinetobacter and Enterococcus. She had also a chronic Right great toe ulcer/callus-stable. Her diabetes was poorly controlled , A1C=13. She was treated inpatient with zosyn and vancomycin, upon discharge she took cipro 500 mg PO q12h total 10 days. Unfortunately she was readmitted due to bilateral foot pain. She reports that about 2 weeks ago and full jar of mayonnaise fell on her left foot. Since then left-sided wounds became worse. Patient states that she has pain 7/10 aching. Patient also states that she is been off of her insulin for approximately 1 week. Patient states she's had some nausea but no vomiting. Denies any fever, chills, nausea, diarrhea, chest pain. In the emergency room, her initial temperature was 98., heart rate 114, blood pressure 116/62, initial white count 7.9. Glucose 706. Creatinine 0.5. Current Antimicrobials: Zosyn 09/09 Vancomycin 09/09 Previous Antimicrobials: Microbiology: Blood cultures: 09/09 ngtd Wound culture: 09/10 Acinetobacter, Enterococcus,MSSA Objective - Exam Narrative Exam: General appearance: Alert in NAD, conversant Eyes: anicteric sclerae, moist conjunctivae; no lid-lag; PERRLA HENT: Atraumatic; oropharynx clear Neck: Trachea midline; supple, no thyromegaly or lymphadenopathy Lungs: CTA, with normal respiratory effort and no intercostal retractions CV: RRR, no murmurs Abdomen: Soft, non-tender; no masses or hepatosplenomegaly Extremities: Right great toe ulcer surrounded by callus, minimal slough, no purulence. Left upper and fourth toes with ulcers of the teeth also surrounding by callus, minimal erythema, no purulence Skin: Normal temperature, turgor and texture; no rash, ulcers or subcutaneous nodules Psych: Appropriate affect, alert and oriented to person, place and time. Neuro: alert and oriented x 3. Moving all extermities Lines: No CVL / PICC - Constitutional Vitals: Vital Signs Temp Pulse Resp BP Pulse Ox 98.6 F 89 18 96/52 91 01/15/18 16:04 01/15/18 16:04 01/15/18 16:04 01/15/18 16:04 01/15/18 16:04 Temperature -Last 24 Hours Temperature 98.6 F Temperature 97.9 F Temperature 98.3 F Temperature 97.6 F - Labs CBC & Chem 7: 01/15/18 05:48 01/15/18 05:48 Labs: Abnormal lab results 01/14/18 01/14/18 01/15/18 Range/Units 18:22 22:49 05:48 MCV 78 L (79-97) fl MCHC 37 H (30-34) % RDW 15.3 H (13.2-15.2) % Lymph % (Auto) 35.3 H (13.4-35.0) % Sodium (137-145) mmol/L Chloride (98-107) mmol/L Creatinine (0.7-1.2) mg/dL Glucose (65-100) mg/dL POC Glucose 481 H 391 H (70-105) Calcium (8.4-10.2) mg/dL AST (5-40) units/L ALT (7-56) units/L Albumin (3.9-5) g/dL 01/15/18 01/15/18 01/15/18 Range/Units 05:48 05:51 11:16 MCV (79-97) fl MCHC (30-34) % RDW (13.2-15.2) % Lymph % (Auto) (13.4-35.0) % Sodium 132 L D (137-145) mmol/L Chloride 93.0 L (98-107) mmol/L Creatinine 0.4 L D (0.7-1.2) mg/dL Glucose 320 H (65-100) mg/dL POC Glucose 289 H 252 H (70-105) Calcium 8.2 L (8.4-10.2) mg/dL AST < 5 L (5-40) units/L ALT < 5 L (7-56) units/L Albumin 3.2 L (3.9-5) g/dL 01/15/18 Range/Units 16:11 MCV (79-97) fl MCHC (30-34) % RDW (13.2-15.2) % Lymph % (Auto) (13.4-35.0) % Sodium (137-145) mmol/L Chloride (98-107) mmol/L Creatinine (0.7-1.2) mg/dL Glucose (65-100) mg/dL POC Glucose 141 H (70-105) Calcium (8.4-10.2) mg/dL AST (5-40) units/L ALT (7-56) units/L Albumin (3.9-5) g/dL
[2018-01-15] MEDS ORDERED: UNASYN/NS 3 GM/100 ML 3 GM/100 ML BAG IV SCH (18:00)
[2018-01-15] MEDS: NEOSPORIN OU SCH ×2 (18:30→23:08)
[2018-01-15] MEDS: UNASYN/NS 3 GM/100 ML 3 GM/100 ML BAG IV SCH (19:16)
[2018-01-15] MEDS ORDERED: VANCOMYCIN 1,250 MG in NACL 0.9% 250ML 250 ML IV SCH (20:00)
[2018-01-15] MEDS: SINEquan PO SCH (23:00)
--- NOTE | 2018-01-15 23:19 | XRay Report ---
FINAL REPORT PROCEDURE: XR FOOT BILAT 2V TECHNIQUE: Bilateral foot radiographs, AP, lateral, and oblique views. HISTORY: Evaluate for osteo. COMPARISON: Left foot radiographs dated 09/09/2017. Right foot radiographs dated 05/11/2017. FINDINGS: Right Fracture (s) and/or Dislocation(s): None . Alignment: Normal. Mild flexion of the toes limits evaluation. Joint space(s): Mild diffuse narrowing of the distal interphalangeal joints. Soft tissues: Slight irregularity about the soft tissues about the plantar aspect of the forefoot. Bone mineralization: Mild periarticular lucency about the distal interphalangeal joint of the 1st toe. Foreign bodies: None. Calcaneal spurring: Small plantar spur Left Fracture (s) and/or Dislocation(s): None . Alignment: Normal. Mild flexion of the toes limits evaluation. Joint space(s): Continued moderate narrowing of the distal interphalangeal joints with marginal osteophytes of the 1st toe. Mild diffuse narrowing of the distal interphalangeal joints. Soft tissues: Normal. Bone mineralization: Normal. Foreign bodies: None. Calcaneal spurring: Small plantar and calcaneal spurs. IMPRESSION: Degenerative change without radiographic evidence of destructive change. Stable mild periarticular lucency about the distal interphalangeal joint of the 1st toe. Possible subtle soft tissue irregularity/ulceration about the plantar aspect of the right toes/forefoot. Consider MRI for further characterization if there is continued clinical concern for soft tissue abnormality or osteomyelitis and if patient has no contraindication to MRI.
[2018-01-16] MEDS: UNASYN/NS 3 GM/100 ML 3 GM/100 ML BAG IV SCH ×4 (00:59→20:34)
[2018-01-16] MEDS: NEOSPORIN OU SCH ×3 (06:35→18:00)
[2018-01-16] MEDS: GLUCOPHAGE PO SCH ×2 (09:05→18:02)
[2018-01-16] MEDS: NACL 0.9% 1000 ML 1,000 ML IV SCH ×2 (09:52→18:02)
[2018-01-16] MEDS: HumaLOG SUB-Q SCH ×3 (09:55→18:07)
[2018-01-16] MEDS: SOMA PO SCH (10:04)
[2018-01-16] MEDS: CALAN SR PO SCH (11:51)
[2018-01-16] MEDS ORDERED: MORPHINE IV PRN (16:16)
--- NOTE | 2018-01-16 16:58 | Progress Note ---
Assessment and Plan Assessment: 1) Tachycardia: Probably due to uncontrolled diabetes/dehydration. No evidence of sepsis. 2) diabetes mellitus: Uncontrolled 3) Peripheral neuropathy 4) Right great toe ulcer and left toes ulcers. Both feet with callus and ulcers no obvious deep infection. -CRP=3 -XR no osteo 5) Peripheral neuropathy 6) Noncompliant with diabetes medications 7) History of left forefoot infection / 2nd-5th toes necrotic changes likely diabetic foot infection with cellulitis. MRI showed cellulitis, no osteomyelitis or abscess seen. CRP=7. Art US normal flow. Wound cx + MSSA, Acinetobacter and Enterococcus. Plan: -continue Unasyn -Upon discharge will do Augmentin 875 mg by mouth twice a day for 7 days -Needs close follow-up with outpatient wound clinic -Needs close follow-up with primary care physician for diabetes control I am signing off Zap[facility] Subjective Date of service: 01/16/18 Principal diagnosis: hyperosmolar nonketotic stae, DMT2, ldft foot infection Interval history: feels better no complaints. Current Antimicrobials: Unasyn Previous Antimicrobials: Zosyn 09/09 Vancomycin 09/09 Microbiology: Blood cultures: 09/09 ngtd Wound culture: 09/10 Acinetobacter, Enterococcus,MSSA Objective - Exam Narrative Exam: General appearance: Alert in NAD, conversant Eyes: anicteric sclerae, moist conjunctivae; no lid-lag; PERRLA HENT: Atraumatic; oropharynx clear Neck: Trachea midline; supple, no thyromegaly or lymphadenopathy Lungs: CTA, with normal respiratory effort and no intercostal retractions CV: RRR, no murmurs Abdomen: Soft, non-tender; no masses or hepatosplenomegaly Extremities: Right great toe ulcer surrounded by callus, minimal slough, no purulence. Left upper and fourth toes with ulcers of the teeth also surrounding by callus, minimal erythema, no purulence Skin: Normal temperature, turgor and texture; no rash, ulcers or subcutaneous nodules Psych: Appropriate affect, alert and oriented to person, place and time. Neuro: alert and oriented x 3. Moving all extermities Lines: No CVL / PICC - Constitutional Vitals: Vital Signs Temp Pulse Resp BP Pulse Ox 97.9 F 94 H 15 125/61 97 01/16/18 15:28 01/16/18 15:28 01/16/18 15:28 01/16/18 15:28 01/16/18 15:28 Temperature -Last 24 Hours Temperature 97.9 F Temperature 100.5 F Temperature 99.4 F Temperature 97.5 F - Labs CBC & Chem 7: 01/15/18 05:48 01/15/18 05:48 Labs: Abnormal lab results 01/15/18 01/15/18 01/16/18 Range/Units 19:30 22:27 06:37 POC Glucose 308 H 215 H (70-105) C-Reactive Protein 2.50 H (0.00-1.30) mg/dL 01/16/18 01/16/18 Range/Units 11:57 15:40 POC Glucose 284 H 239 H (70-105) C-Reactive Protein (0.00-1.30) mg/dL
--- NOTE | 2018-01-16 19:20 | Progress Note ---
Assessment and Plan Assessment/Plan - Hyperosmolar non-ketotic state in patient with type 2 diabetes mellitus Continue with SSI A1c Consistent CHO diet Counselling on diet transmission worker to assist with pt medication procurement - Diabetic foot infection wound CX Continue with Vanc and Zosyn - Hyperkalemia corrected Check Mg -Hyponatremia - improving Secondary to uncontrolled DMT2 - HTN (hypertension Add Lisinopril to prestn Verapamil - Depression Continue with Dozapen. MAy add SSRI if symptom not improving - DVT prophylaxis With Lovenox Subjective Date of service: 01/16/18 Principal diagnosis: hyperosmolar nonketotic state, DMT2, left foot infection Interval history: Pt seen and examined. No new complaint. Denies any abdominal pain. N/V. Objective - Constitutional Vitals: Vital Signs - 12hr 01/16/18 01/16/18 01/16/18 07:47 11:51 12:19 Temperature 99.4 F 100.5 F H Pulse Rate 108 H 113 H 127 H Respiratory 18 18 Rate Blood Pressure 138/65 107/53 Blood Pressure 108/44 [Right] O2 Sat by Pulse 91 90 Oximetry 01/16/18 15:28 Temperature 97.9 F Pulse Rate 94 H Respiratory 15 Rate Blood Pressure 125/61 Blood Pressure [Right] O2 Sat by Pulse 97 Oximetry General appearance: Present: no acute distress, well-nourished - EENT Eyes: PERRL, EOM intact - Neck Neck: supple, normal ROM - Respiratory Respiratory: bilateral: CTA - Cardiovascular Rhythm: regular Heart Sounds: Present: S1 & S2. Absent: gallop, rub Extremities: pulses intact, No edema, normal color, Full ROM - Gastrointestinal General gastrointestinal: Present: soft, non-tender - Genitourinary Female genitourinary: normal - Integumentary Integumentary: clear, warm, dry - Musculoskeletal Musculoskeletal: 1, strength equal bilaterally - Neurologic Neurologic: moves all extremities - Psychiatric Psychiatric: memory intact, appropriate mood/affect, intact judgment & insight - Labs CBC & Chem 7: 01/15/18 05:48 01/15/18 05:48 Labs: Abnormal lab results 01/15/18 01/15/18 01/16/18 Range/Units 19:30 22:27 06:37 POC Glucose 308 H 215 H (70-105) C-Reactive Protein 2.50 H (0.00-1.30) mg/dL 01/16/18 01/16/18 Range/Units 11:57 15:40 POC Glucose 284 H 239 H (70-105) C-Reactive Protein (0.00-1.30) mg/dL
[2018-01-16] MEDS ORDERED: NACL 0.9% 1000 ML 2,000 ML IV SCH (21:00)
[2018-01-17] MEDS: HumaLOG SUB-Q SCH ×4 (00:25→17:50)
[2018-01-17] MEDS: SOMA PO SCH ×2 (00:26→09:11)
[2018-01-17] MEDS: SINEquan PO SCH (00:26)
[2018-01-17] MEDS: NEOSPORIN OU SCH ×3 (00:27→13:07)
[2018-01-17] MEDS: UNASYN/NS 3 GM/100 ML 3 GM/100 ML BAG IV SCH ×3 (02:48→13:54)
[2018-01-17 06:36] LABS: Basophils % (Auto) 0.5 % (0.0-1.8); Eosinophils # (Auto) 0.2 K/mm3 (0.0-0.4); Eosinophils % (Auto) 3.5 % (0.0-4.3); Hematocrit 35.8 % (30.3-42.9); Hemoglobin 12.3 gm/dl (10.1-14.3); Lymphocytes # (Auto) 2.1 K/mm3 (1.2-5.4); Lymphocytes % (Auto) 29.3 % (13.4-35.0); Mean Corpuscular HGB Conc 34 % (30-34); Mean Corpuscular Hemoglobin 27 pg (28-32); Mean Corpuscular Volume 79 fl (79-97); Monocytes # (Auto) 0.3 K/mm3 (0.0-0.8); Monocytes % (Auto) 4.8 % (0.0-7.3); Platelet Count 217 K/mm3 (140-440); Red Blood Count 4.51 M/mm3 (3.65-5.03); Red Cell Distribution Width 15.6 % (13.2-15.2)
[2018-01-17 07:03] LABS: Alanine Aminotransferase 16 units/L (7-56); Albumin 3.2 g/dL (3.9-5); BUN/Creatinine Ratio 12; Blood Urea Nitrogen 7 mg/dL (7-17); Calcium 8.8 mg/dL (8.4-10.2); Hemolysis Index 37
[2018-01-17] MEDS: GLUCOPHAGE PO SCH ×2 (09:12→18:41)
[2018-01-17 09:21] VITALS: BP 123/63
[2018-01-17] MEDS: CALAN SR PO SCH (10:25)
--- NOTE | 2018-01-17 15:36 | Discharge Summary ---
Providers - Providers Date of Admission: 01/14/18 16:50 Date of discharge: 01/17/18 Attending physician: GRAY FULLER 01/15/18 05:24 Consult to Physician [CONS] Routine Comment: Consulting Provider: NONA ROLON Physician Instructions: Reason For Exam: Cellulitis of foot and ulcers on toe Consult to Wound/ET Nurse [CONS] Routine Reason For Exam: wound eval 01/15/18 05:30 Consult to Dietitian/Nutrition [CONS] Routine Physician Instructions: Reason For Exam: IDDM poorly controlled Reason for Consult: Diet education Primary care physician: SPEE[employer] PATHOLOGIST PRN Hospitalization Reason for admission: hypersomolar nonketotic DM, diabetic ben feet ullcer and diabetic neuropath Condition: Poor Pertinent studies: xray of the foot Procedures: none Hospital course: 52-year-old female with IDDM who has been off her insulin for over 1 week b/c she could not afford it prsented to the ED of [facility] with blood glucose of 706. No ketones. She also c/o pain in bilateral foot pain. Pt as had wounds on the both feet which are progressively worsening. Patient states that she pain was 7/10 in severity. Patient states she's had some nausea but no vomiting. Patient denies any chest pain shortness of breath abdominal pain diarrhea and headaches at this time. Patient does state that she has had some subjective fevers as well. on admission pt ws commenced on iv hnydration with NS and iv insulin later converted to SSI. Glucemic control improved. Xray of the feet showed no evidence of osteomyelitis. CRP=3. Wound cx was positive for MSSA, Acinetobacter and Enterococcus. Prior Art US showed normal flow. Had MRI in Nov per pt pt and ID that showed no evidece of osteomyelitis. On admission pt was commence on iv vanc and Cefepin. ID was consuted. No evidence of sepsis as marker were normal. Pain in the foot improved and blood controll improved. Pt who is requesting to go home is discharged to f/u with PCP in the3-5 d - Disposition: DC-01 TO HOME OR SELFCARE Time spent for discharge: 35 min - Discharge Diagnoses (1) Hyperosmolar non-ketotic state in patient with type 2 diabetes mellitus Status: Acute (2) Diabetic foot infection Status: Acute (3) Hyperglycemia Status: Acute (4) Hyperkalemia Status: Acute (5) Hyponatremia Status: Acute Comment: due to hyperglycemia (6) HTN (hypertension) Status: Chronic Qualifiers: Hypertension type: essential hypertension Qualified Code(s): I10 - Essential (primary) hypertension (7) Toe infection Status: Acute Core Measure Documentation - Palliative Care Palliative Care/ Comfort Measures: Not Applicable - Core Measures Any of the following diagnoses?: none Exam - Constitutional Vitals: Temp Pulse Resp BP Pulse Ox 97.7 F 113 H 18 123/63 92 01/17/18 08:29 01/17/18 08:29 01/17/18 10:00 01/17/18 08:29 01/17/18 08:29 General appearance: Present: no acute distress, well-nourished - EENT Eyes: Present: PERRL ENT: hearing intact, clear oral mucosa - Neck Neck: Present: supple, normal ROM - Respiratory Respiratory effort: normal Respiratory: bilateral: CTA - Cardiovascular Heart Sounds: Present: S1 & S2. Absent: rub, click - Extremities Extremities: pulses symmetrical, No edema Peripheral Pulses: within normal limits - Abdominal General gastrointestinal: Present: soft, non-tender, non-distended, normal bowel sounds Female genitourinary: Present: normal - Integumentary Integumentary: Present: erythema (right big toe infection adn 2-4th toe infection) - Musculoskeletal Musculoskeletal: gait normal, strength equal bilaterally - Psychiatric Psychiatric: appropriate mood/affect, intact judgment & insight - Neurologic Neurologic: CNII-XII intact, moves all extremities Plan Activity: advance as tolerated, fall precautions Weight Bearing Status: Weight Bear as Tolerated Diet: diabetic Follow up with: PRIMARY CARE, [Primary Care Provider] - 3-5 Days Prescriptions: Atorvastatin [Lipitor] 20 mg PO QHS #30 tab Butalb/Acetamin/Caff 50-325-40 [Fioricet] 1 each PO Q4H PRN #30 tablet PRN Reason: Headache Carisoprodol [Soma] 350 mg PO BID #60 tablet Lisinopril [Prinivil] 5 mg PO QDAY #30 tablet Metformin HCl 1,000 mg PO BID #60 tablet [place]/Poly B/Gramicidin Opth Dasia [Neosporin] 2 drops OU Q6HR #1 bottle
== END 2018-01-17 18:00 | disposition home or self-care (01) | DRG 638 ==
LOC: ED 14:05 → 3A 16:50
PROVIDERS: ADMIT Internal Medicine; ATTEND Family Medicine
DX: E11.00 Type 2 diabetes mellitus with hyperosmolarity without nonketotic hyperglycemic-hyperosmolar coma (NKHHC) (principal); E87.1 Hypo-osmolality and hyponatremia; Z88.8 Allergy status to other drugs, medicaments and biological substances; I10 Essential (primary) hypertension; F32.9 Major depressive disorder, single episode, unspecified; G43.909 Migraine, unspecified, not intractable, without status migrainosus; Z90.49 Acquired absence of other specified parts of digestive tract; Z98.51 Tubal ligation status; Z79.4 Long term (current) use of insulin; E87.5 Hyperkalemia; R00.0 Tachycardia, unspecified; E11.42 Type 2 diabetes mellitus with diabetic polyneuropathy; Z91.19 Patient's noncompliance with other medical treatment and regimen; E11.621 Type 2 diabetes mellitus with foot ulcer; L97.529 Non-pressure chronic ulcer of other part of left foot with unspecified severity; L97.519 Non-pressure chronic ulcer of other part of right foot with unspecified severity
CPT/HCPCS: 36415; 80048; 80053; 81001; 82805; 82962; 83735; 84100; 85025; 86140; 87040; 96361; 96365; 96375; J0295; J1815; J1885; J2270; J2405; J2543; J3370; J7030; J7040; J7050

== ENCOUNTER 2018-03-20 13:13 | Emergency (ER) | payer SELFPAY ==
[2018-03-20 14:47] LABS: Basophils # (Auto) 0.1 K/mm3 (0.0-0.1); Basophils % (Auto) 0.6 % (0.0-1.8); Eosinophils # (Auto) 0.2 K/mm3 (0.0-0.4); Eosinophils % (Auto) 1.9 % (0.0-4.3); Hematocrit 39.4 % (30.3-42.9); Hemoglobin 13.8 gm/dl (10.1-14.3); Lymphocytes # (Auto) 3.1 K/mm3 (1.2-5.4); Lymphocytes % (Auto) 31.3 % (13.4-35.0); Mean Corpuscular HGB Conc 35 % (30-34); Mean Corpuscular Hemoglobin 27 pg (28-32); Mean Corpuscular Volume 78 fl (79-97); Monocytes # (Auto) 0.4 K/mm3 (0.0-0.8); Monocytes % (Auto) 4.6 % (0.0-7.3); Platelet Count 291 K/mm3 (140-440); Red Blood Count 5.03 M/mm3 (3.65-5.03)
[2018-03-20 14:49] LABS: BUN/Creatinine Ratio 17; Blood Urea Nitrogen 12 mg/dL (7-17); Calcium 9.4 mg/dL (8.4-10.2); Hemolysis Index 49
[2018-03-20] MEDS ORDERED: HumuLIN R IV ONE (16:44)
[2018-03-20] MEDS ORDERED: NACL 0.9% 1000 ML 1,000 ML IV ONE (16:44)
[2018-03-20] MEDS ORDERED: NACL 0.9% 1000 ML 2,000 ML IV ONE (16:44)
--- NOTE | 2018-03-20 16:45 | Emergency Department Report ---
ED General Adult HPI - General Chief complaint: Weakness Stated complaint: WEAKNESS Time Seen by Provider: 03/20/18 16:24 Source: patient, RN notes reviewed, old records reviewed Mode of arrival: Ambulatory Limitations: Physical Limitation - History of Present Illness Initial comments: This is a 52-year-old female, unknown to this provider previously, past medical history of brittle diabetic, hyperglycemia, lower extremity wounds. Patient presents to the ER today with complaint of hyperglycemia. She was sent by her primary care doctor, for 3 days of weakness, and elevated blood sugar level. Patient in the office was found to have a blood sugar greater than 650, with 2+ ketones, and was hypotensive with a blood pressure of 93/62. The patient complains of fatigue and malaise. She is not having any pain. She has no urinary symptoms. She is not having shortness of breath. She has chronic wounds on her right foot/plantar aspect of the great toe which are unchanged, and she endorses some nonspecific discoloration to the plantar aspect of her left fourth digit. The patient denies chest pain, but she admits that she's been feeling weak, and somewhat lightheaded. She hasn't passed out, but she's had a few times where she feels like she is almost going to pass out. The patient denies DVT, pulmonary embolus risk factors. -: Gradual, days(s) Consistency: constant Improves with: rest Worsens with: movement Associated Symptoms: loss of appetite, malaise, syncope, weakness. denies: confusion, chest pain, cough, diaphoresis, fever/chills, headaches, nausea/ vomiting, rash, seizure, shortness of breath - Related Data Home Medications Medication Instructions Recorded Confirmed Last Taken Doxepin [SINEquan] 200 mg PO QHS 05/09/17 01/14/18 09/08/17 Glimepiride [Amaryl] 4 mg PO BID 05/09/17 01/14/18 09/08/17 Previous Rx's Medication Instructions Recorded Last Taken Type Insulin NPH/Regular [NovoLIN 70/30] 35 unit SUB-Q BIDDIAB 30 Days 09/16/17 Unknown Rx units Atorvastatin [Lipitor] 20 mg PO QHS #30 tab 01/17/18 Unknown Rx Butalb/Acetamin/Caff 50-325-40 1 each PO Q4H PRN #30 tablet 01/17/18 Unknown Rx [Fioricet] Carisoprodol [Soma] 350 mg PO BID tablet 01/17/18 Unknown Rx Carisoprodol [Soma] 350 mg PO BID #60 tablet 01/17/18 Unknown Rx Insulin NPH/Regular [NovoLIN 70/30] 40 unit SUB-Q BIDDIAB units 01/17/18 Unknown Rx Lisinopril [Prinivil] 5 mg PO QDAY #30 tablet 01/17/18 Unknown Rx Metformin HCl 1,000 mg PO BID #60 tablet 01/17/18 Unknown Rx Corwin/Poly B/Gramicidin Opth Dasia 2 drops OU Q6HR #1 bottle 01/17/18 Unknown Rx [Neosporin] Verapamil ER [Calan SR] 360 mg PO QDAY tablet 01/17/18 Unknown Rx Allergies Allergy/AdvReac Type Severity Reaction Status Date / Time meperidine HCl [From Demerol] Allergy Unknown Verified 05/09/17 16:15 ED Review of Systems ROS: Stated complaint: WEAKNESS Other details as noted in HPI Comment: All other systems reviewed and negative ED Past Medical Hx - Past Medical History Hx Hypertension: Yes Hx Congestive Heart Failure: No Hx Diabetes: Yes Hx Headaches / Migraines: Yes Hx Psychiatric Treatment: Yes (depression) Hx Asthma: No Hx COPD: No Hx HIV: No - Surgical History Hx Cholecystectomy: Yes Additional Surgical History: TUBAL LIGATION - Social History Smoking Status: Never Smoker - Medications Home Medications: Home Medications Medication Instructions Recorded Confirmed Last Taken Type Doxepin [SINEquan] 200 mg PO QHS 05/09/17 01/14/18 09/08/17 History Glimepiride [Amaryl] 4 mg PO BID 05/09/17 01/14/18 09/08/17 History Insulin NPH/Regular [NovoLIN 70/30] 35 unit SUB-Q BIDDIAB 30 Days 09/16/1701/14 Unknown Rx units Atorvastatin [Lipitor] 20 mg PO QHS #30 tab 01/17/18 Unknown Rx Butalb/Acetamin/Caff 50-325-40 1 each PO Q4H PRN #30 tablet 01/17/18 Unknown Rx [Fioricet] Carisoprodol [Soma] 350 mg PO BID tablet 01/17/18 Unknown Rx Carisoprodol [Soma] 350 mg PO BID #60 tablet 01/17/18 Unknown Rx Insulin NPH/Regular [NovoLIN 70/30] 40 unit SUB-Q BIDDIAB units 01/17/18 Unknown Rx Lisinopril [Prinivil] 5 mg PO QDAY #30 tablet 01/17/18 Unknown Rx Metformin HCl 1,000 mg PO BID #60 tablet 01/17/18 Unknown Rx Corwin/Poly B/Gramicidin Opth Dasia 2 drops OU Q6HR #1 bottle 01/17/18 Unknown Rx [Neosporin] Verapamil ER [Calan SR] 360 mg PO QDAY tablet 01/17/18 Unknown Rx ED Physical Exam - General Limitations: Physical Limitation General appearance: alert, in no apparent distress - Head Head exam: Present: atraumatic, normocephalic - Eye Eye exam: Present: normal appearance, EOMI. Absent: nystagmus - ENT ENT exam: Present: mucous membranes dry - Neck Neck exam: Present: normal inspection, full ROM. Absent: tenderness, meningismus - Respiratory Respiratory exam: Present: normal lung sounds bilaterally. Absent: respiratory distress - Cardiovascular Cardiovascular Exam: Present: normal rhythm, tachycardia, normal heart sounds. Absent: systolic murmur, diastolic murmur, rubs, gallop - GI/Abdominal GI/Abdominal exam: Present: soft, normal bowel sounds. Absent: distended, tenderness, guarding, rebound, rigid, pulsatile mass - Extremities Exam Extremities exam: Present: normal inspection, full ROM, other (on the plantar aspect of the right great toe, there is a chronic slow healing ulcer with good granulation tissue with no redness, pus or streaking. On the plantar aspect of the left fourth toe, there is hyperpigmentation, with no redness, pus or streaking or tenderness. The compartments are soft, 2+ pulses noted in the upper, lower extremities). Absent: pedal edema, joint swelling, calf tenderness - Back Exam Back exam: Present: normal inspection, full ROM. Absent: paraspinal tenderness , vertebral tenderness - Neurological Exam Neurological exam: Present: alert, oriented X3, CN II-XII intact, other ( Extraocular movements intact. Tongue midline. No facial droop. Facial sensation intact to light touch in the V1, V2, V3 distribution bilaterally. 5 and 5 strength in 4 extremities.. Sensation is intact to light touch in 4 extremities.). Absent: motor sensory deficit - Psychiatric Psychiatric exam: Present: normal affect, normal mood - Skin Skin exam: Present: warm, dry, intact, normal color. Absent: rash ED Course Vital Signs 03/20/18 03/20/18 03/20/18 13:54 15:56 17:00 Temperature 97.5 F L 97.9 F Pulse Rate 107 H 100 H 104 H Respiratory 16 16 16 Rate Blood Pressure 119/73 Blood Pressure 114/54 109/62 [Left] O2 Sat by Pulse 96 96 98 Oximetry 03/20/18 18:23 Temperature 97.9 F Pulse Rate 93 H Respiratory 16 Rate Blood Pressure Blood Pressure 106/56 [Left] O2 Sat by Pulse 100 Oximetry - Reevaluation(s) Reevaluation #1: 03/20/18 19:18 Patient has been in the ER for over 5 hours without clinical decompensation. She is walking with a steady gait. Her Accu-Chek is improved. She hasn't passed out. She will be discharged at this time. ED Medical Decision Making - Lab Data Result diagrams: 03/20/18 14:13 03/20/18 14:13 Vital Signs 03/20/18 03/20/18 03/20/18 13:54 15:56 17:00 Temperature 97.5 F L 97.9 F Pulse Rate 107 H 100 H 104 H Respiratory 16 16 16 Rate Blood Pressure 119/73 Blood Pressure 114/54 109/62 [Left] O2 Sat by Pulse 96 96 98 Oximetry 03/20/18 18:23 Temperature 97.9 F Pulse Rate 93 H Respiratory 16 Rate Blood Pressure Blood Pressure 106/56 [Left] O2 Sat by Pulse 100 Oximetry Labs 03/20/18 03/20/18 03/20/18 14:01 14:13 14:13 WBC 9.8 RBC 5.03 Hgb 13.8 Hct 39.4 MCV 78 L MCH 27 L MCHC 35 H RDW 15.0 Plt Count 291 Lymph % (Auto) 31.3 [place] % (Auto) 4.6 Eos % (Auto) 1.9 Baso % (Auto) 0.6 Lymph # 3.1 [place] # 0.4 Eos # 0.2 Baso # 0.1 Seg Neutrophils % 61.6 Seg Neutrophils # 6.0 Sodium 124 L Potassium 4.4 Chloride 85.2 L Carbon Dioxide 23 Anion Gap 20 BUN 12 Creatinine 0.7 Estimated GFR > 60 BUN/Creatinine Ratio 17 Glucose 455 H POC Glucose 386 H Calcium 9.4 Magnesium Total Creatine Kinase Urine Color Urine Turbidity Urine pH Ur Specific [place] Urine Protein Urine Glucose (UA) Urine Ketones Urine Blood Urine Nitrite Urine Bilirubin Urine Urobilinogen Ur Leukocyte Esterase Urine WBC (Auto) Urine RBC (Auto) U Epithel Cells (Auto) 03/20/18 03/20/18 03/20/18 16:56 17:14 17:26 WBC RBC Hgb Hct MCV MCH MCHC RDW Plt Count Lymph % (Auto) [place] % (Auto) Eos % (Auto) Baso % (Auto) Lymph # [place] # Eos # Baso # Seg Neutrophils % Seg Neutrophils # Sodium Potassium Chloride Carbon Dioxide Anion Gap BUN Creatinine Estimated GFR BUN/Creatinine Ratio Glucose POC Glucose 444 H Calcium Magnesium 2.10 Total Creatine Kinase 38 Urine Color Straw Urine Turbidity Clear Urine pH 5.0 Ur Specific [place] 1.012 Urine Protein <15 mg/dl Urine Glucose (UA) >=500 Urine Ketones Neg Urine Blood Neg Urine Nitrite Neg Urine Bilirubin Neg Urine Urobilinogen < 2.0 Ur Leukocyte Esterase Tr Urine WBC (Auto) 4.0 Urine RBC (Auto) 2.0 U Epithel Cells (Auto) 3.0 03/20/18 18:44 WBC RBC Hgb Hct MCV MCH MCHC RDW Plt Count Lymph % (Auto) [place] % (Auto) Eos % (Auto) Baso % (Auto) Lymph # [place] # Eos # Baso # Seg Neutrophils % Seg Neutrophils # Sodium Potassium Chloride Carbon Dioxide Anion Gap BUN Creatinine Estimated GFR BUN/Creatinine Ratio Glucose POC Glucose 271 H Calcium Magnesium Total Creatine Kinase Urine Color Urine Turbidity Urine pH Ur Specific [place] Urine Protein Urine Glucose (UA) Urine Ketones Urine Blood Urine Nitrite Urine Bilirubin Urine Urobilinogen Ur Leukocyte Esterase Urine WBC (Auto) Urine RBC (Auto) U Epithel Cells (Auto) - EKG Data -: EKG Interpreted by Me EKG shows normal: sinus rhythm Rate: tachycardia - EKG Data Interpretation: unchanged when compared t 03/20/18 18:46 Motion artifact, sinus tachycardia, left axis deviation, poor R-wave progression , left ventricular hypertrophy, not STEMI, appears unchanged when compared to prior from 05/09/2017 - Radiology Data Radiology results: image reviewed interpreted by me: X-ray of the chest, interpreted by me, no acute disease - Medical Decision Making Differential diagnosis, including but not limited to: Dehydration, pneumonia, urinary tract infection, chronic lower extremity wounds, diabetic ketoacidosis, hyperosmolar state Assessment and plan: 52-year-old female with hyperglycemia, pseudohyponatremia, dehydration, resolved hypotension, no DVT, pulmonary embolus risk factors, low risk by well's criteria, anion gap of 20, will receive IV fluids, insulin bolus , reassess. She is not encephalopathic, she is currently sober, as per verbal report from the nurse was walking with a slightly unsteady gait. Critical care attestation.: If time is entered above; I have spent that time in minutes in the direct care of this critically ill patient, excluding procedure time. ED Disposition Clinical Impression: Uncontrolled diabetes mellitus Disposition: DC- TO HOME OR SELFCARE Is pt being admited?: No Does the pt Need Aspirin: No Condition: Stable Instructions: Diabetes Mellitus Type 2 in Adults (ED) Additional Instructions: Continue current outpatient medications. Follow up with her primary care doctor within the next week. Follow up at the wound care center within the next week. Return to the ER right away with fevers, chills, lethargy, irritability, projectile vomiting, change in mental status, confusion, inability to tolerate liquid feeds. Referrals: PRIMARY CAREMD [Primary Care Provider] - 3-5 Days [facility] [Outside] - 3-5 Days TERRELL CHAPA MD [Referring] - 3-5 Days
[2018-03-20 17:29] LABS: Bilirubin,Urine NEG (Negative); Blood,Urine NEG (Negative); Color,Urine Straw (Yellow); Protein,Urine <15 mg/dL mg/dL (Negative); Urobilinogen,Urine < 2.0 mg/dL (<2.0)
[2018-03-20 21:41] VITALS: BP 109/58
--- NOTE | 2018-03-23 14:24 | XRay Report ---
FINAL REPORT PROCEDURE: Chest. TECHNIQUE: Portable AP view. HISTORY: Tachycardia, near syncope. COMPARISON: No prior studies are available for comparison. FINDINGS: The heart and mediastinum appear normal. There is mild tortuosity of the thoracic aorta. The lungs are clear and well expanded. There are no pleural effusions. The soft tissues and regional skeleton are unremarkable. IMPRESSION: Negative portable chest.
== END 2018-03-20 21:42 | disposition home or self-care (01) ==
LOC: ED 13:13
DX: E11.65 Type 2 diabetes mellitus with hyperglycemia (principal); I10 Essential (primary) hypertension; E11.9 Type 2 diabetes mellitus without complications; Z98.51 Tubal ligation status; F32.9 Major depressive disorder, single episode, unspecified; Z79.4 Long term (current) use of insulin; Z90.49 Acquired absence of other specified parts of digestive tract; Z88.8 Allergy status to other drugs, medicaments and biological substances
CPT/HCPCS: 36415; 71045; 80048; 81001; 82550; 82962; 83735; 85025; 87086; 93005; 93010; 96361; 96374; 99284; J7030; J1815

== ENCOUNTER 2018-12-17 17:24 | Inpatient (IN) | payer SELFPAY ==
[2018-12-17] MEDS ORDERED: NACL 0.9% 1000 ML 1,000 ML IV ONE (17:38)
--- NOTE | 2018-12-17 17:41 | Emergency Department Report ---
Blank Doc - Documentation Documentation: Patient comes in for hyperglycemia. Blood sugar >500 in triage This initial assessment diagnostic orders/clinical plan/treatment (s) is/Are subject change based on patient's health status, clinical progression and re- assessment by fellow clinical providers in the ED. Further treatment and work-up at subsequent clinical providers discretion. Patient/guardians urged not to elope from their condition may be serious if not clinically assessed and managed. Initial order include:
[2018-12-17 18:14] LABS: Albumin 3.7 g/dL (3.9-5); BUN/Creatinine Ratio 11; Blood Urea Nitrogen 9 mg/dL (7-17); Calcium 9.4 mg/dL (8.4-10.2); Hemolysis Index 53
[2018-12-17 18:24] LABS: Basophils % (Auto) 0.5 % (0.0-1.8); Eosinophils # (Auto) 0.2 K/mm3 (0.0-0.4); Eosinophils % (Auto) 1.8 % (0.0-4.3); Hematocrit 37.1 % (30.3-42.9); Hemoglobin 13.1 gm/dl (10.1-14.3); Lymphocytes # (Auto) 1.4 K/mm3 (1.2-5.4); Lymphocytes % (Auto) 14.7 % (13.4-35.0); Mean Corpuscular HGB Conc 35 % (30-34); Mean Corpuscular Volume 79 fl (79-97); Monocytes # (Auto) 0.4 K/mm3 (0.0-0.8); Monocytes % (Auto) 3.9 % (0.0-7.3); Platelet Count 331 K/mm3 (140-440); Red Blood Count 4.71 M/mm3 (3.65-5.03); Red Cell Distribution Width 15.2 % (13.2-15.2)
[2018-12-17 18:35] LABS: Alanine Aminotransferase < 5 units/L (7-56)
[2018-12-17] MEDS ORDERED: NACL 0.9% 1000 ML IV ONE (18:48)
[2018-12-17] MEDS ORDERED: MAXIPIME/NS 2 GM/100 ML 2 GM/100 ML BAG IV ONE (18:49)
--- NOTE | 2018-12-17 18:55 | Emergency Department Report ---
ED General Adult HPI - General Chief complaint: Hyperglycemia Stated complaint: HBP/RT TOE INJURY/PAIN Time Seen by Provider: 12/17/18 17:36 Source: patient Mode of arrival: Ambulatory Limitations: No Limitations - History of Present Illness Initial comments: She is a 53-year-old female Emergency room with right great toe pain. Patient states that she has uncontrolled diabetes and neuropathy and patient has had a wound to her right great toe for one month that is worsening. Patient states his symptoms are worse. Patient states that he has been a gradual increase. Patient states that the pain is 10 out of 10 and is not radiating. Patient states the pain is a stabbing pain. Patient states the pain is better with rest and worse with ambulation and movement. Patient denies trauma. -: Gradual Severity scale (0 -10): 10 Quality: stabbing Consistency: constant Improves with: rest Worsens with: movement Associated Symptoms: denies other symptoms. denies: confusion, chest pain, cough, diaphoresis, fever/chills, headaches, loss of appetite, malaise, nausea/vomiting, rash, seizure, shortness of breath, syncope, weakness Treatments Prior to Arrival: NSAID - Related Data Home Medications Medication Instructions Recorded Confirmed Last Taken Doxepin [SINEquan] 200 mg PO QHS 05/09/17 12/17/18 09/08/17 Glimepiride [Amaryl] 4 mg PO BID 05/09/17 12/17/18 09/08/17 Verapamil HCl [Verelan] 360 mg PO BID 12/17/18 12/17/18 Unknown Previous Rx's Medication Instructions Recorded Last Taken Type Insulin NPH/Regular [NovoLIN 70/30] 35 unit SUB-Q BIDDIAB 30 Days 09/16/17 Unknown Rx units Atorvastatin [Lipitor] 20 mg PO QHS #30 tab 01/17/18 Unknown Rx Butalb/Acetamin/Caff 50-325-40 1 each PO Q4H PRN #30 tablet 01/17/18 Unknown Rx [Fioricet] Carisoprodol [Soma] 350 mg PO BID #60 tablet 01/17/18 Unknown Rx Lisinopril [Prinivil] 5 mg PO QDAY #30 tablet 01/17/18 Unknown Rx Metformin HCl 1,000 mg PO BID #60 tablet 01/17/18 Unknown Rx Corwin/Poly B/Gramicidin Opth Dasia 2 drops OU Q6HR #1 bottle 01/17/18 Unknown Rx [Neosporin] Allergies Allergy/AdvReac Type Severity Reaction Status Date / Time meperidine HCl [From Demerol] Allergy Unknown Verified 12/17/18 17:36 ED Review of Systems ROS: Stated complaint: HBP/RT TOE INJURY/PAIN Other details as noted in HPI Constitutional: denies: chills, fever Eyes: denies: eye pain, eye discharge, vision change ENT: denies: ear pain, throat pain Respiratory: denies: cough, shortness of breath, wheezing Cardiovascular: denies: chest pain, palpitations Endocrine: no symptoms reported Gastrointestinal: denies: abdominal pain, nausea, diarrhea Genitourinary: denies: urgency, dysuria, discharge Musculoskeletal: denies: back pain, joint swelling, arthralgia Skin: denies: rash, lesions Neurological: denies: headache, weakness, paresthesias Psychiatric: denies: anxiety, depression Hematological/Lymphatic: denies: easy bleeding, easy bruising ED Past Medical Hx - Past Medical History Previous Medical History?: Yes Hx Hypertension: Yes Hx Congestive Heart Failure: No Hx Diabetes: Yes Hx Headaches / Migraines: Yes Hx Psychiatric Treatment: Yes (depression) Hx Asthma: No Hx COPD: No Hx HIV: No Additional medical history: ? BLOOD CLOTTING PROBLEMS - Surgical History Past Surgical History?: Yes Hx Cholecystectomy: Yes Additional Surgical History: TUBAL LIGATION - Family History Family history: no significant - Social History Smoking Status: Never Smoker Substance Use Type: None - Medications Home Medications: Home Medications Medication Instructions Recorded Confirmed Last Taken Type Doxepin [SINEquan] 200 mg PO QHS 05/09/17 12/17/18 09/08/17 History Glimepiride [Amaryl] 4 mg PO BID 05/09/17 12/17/18 09/08/17 History Insulin NPH/Regular [NovoLIN 70/30] 35 unit SUB-Q BIDDIAB 30 Days 09/16/17 12/17/18 Unknown Rx units Atorvastatin [Lipitor] 20 mg PO QHS #30 tab 01/17/18 12/17/18 Unknown Rx Butalb/Acetamin/Caff 50-325-40 1 each PO Q4H PRN #30 tablet 01/17/18 12/17/18 Unknown Rx [Fioricet] Carisoprodol [Soma] 350 mg PO BID #60 tablet 01/17/18 12/17/18 Unknown Rx Lisinopril [Prinivil] 5 mg PO QDAY #30 tablet 01/17/18 12/17/18 Unknown Rx Metformin HCl 1,000 mg PO BID #60 tablet 01/17/18 12/17/18 Unknown Rx Corwin/Poly B/Gramicidin Opth Dasia 2 drops OU Q6HR #1 bottle 01/17/18 12/17/18 Unknown Rx [Neosporin] Verapamil HCl [Verelan] 360 mg PO BID 12/17/18 12/17/18 Unknown History ED Physical Exam - General Limitations: No Limitations General appearance: alert, in no apparent distress - Head Head exam: Present: atraumatic, normocephalic - Eye Eye exam: Present: normal appearance - ENT ENT exam: Present: mucous membranes dry - Neck Neck exam: Present: normal inspection - Respiratory Respiratory exam: Present: normal lung sounds bilaterally. Absent: respiratory distress, wheezes, rales, rhonchi - Cardiovascular Cardiovascular Exam: Present: regular rate, normal rhythm. Absent: systolic murmur, diastolic murmur, rubs, gallop - GI/Abdominal GI/Abdominal exam: Present: soft, normal bowel sounds - Extremities Exam Extremities exam: Present: normal inspection, full ROM, other (right great toe ulceration noted. Redness to the entire great toe and extending onto the dorsal aspect of the right foot. 2+ pedal pulses noted) - Back Exam Back exam: Present: normal inspection - Neurological Exam Neurological exam: Present: alert, oriented X3 - Psychiatric Psychiatric exam: Present: normal affect, normal mood - Skin Skin exam: Present: warm, dry, intact, normal color, other (right great toe ulcer). Absent: rash ED Course Vital Signs 12/17/18 12/17/18 12/17/18 17:37 18:42 18:44 Temperature 98.7 F Pulse Rate 123 H Respiratory 18 18 Rate Blood Pressure 150/67 Blood Pressure [Left] O2 Sat by Pulse 95 95 99 Oximetry 12/17/18 12/17/18 12/17/18 19:00 19:51 20:00 Temperature 98.5 F Pulse Rate 112 H Respiratory 18 30 H Rate Blood Pressure 140/67 Blood Pressure 148/78 [Left] O2 Sat by Pulse 96 95 94 Oximetry 12/17/18 12/17/18 12/17/18 21:01 22:01 23:05 Temperature Pulse Rate 121 H 113 H Respiratory 17 16 Rate Blood Pressure 140/67 140/67 145/69 Blood Pressure [Left] O2 Sat by Pulse 97 96 94 Oximetry - Reevaluation(s) Reevaluation #1: She'll evaluation done. Patient will be given antibiotics empirically. 12/17/18 17:36 - Consultations Consultation #1: Dr. Guerrier consulted, general surgery. Dr. Guerrier recommendations for person she admitted to the hospitalist service and have a CT of her foot and wound care consult. 12/17/18 20:30 Consultation #2: Hospitalist consulted for admission. Hospitalist to admit patient and assume care of patient. 12/17/18 21:42 ED Medical Decision Making - Lab Data Result diagrams: 12/17/18 17:48 12/17/18 17:48 - Radiology Data Radiology results: report reviewed No osteomyelitis and normal bony mineralization noted on CT scan - Medical Decision Making Patient is a 23-year-old female that presents mentioned with complaints of open wound on the right great toe. Patient found to have a diabetic ulcer and cellulitis patient's has uncontrolled diabetes. Blood sugar significantly el evated. She given insulin and ER. Patient also given multiple saline boluses and antibiotics and ER. Patient is not septic or in DKA. The patient's lactic acid negative. CT of the foot negative for osteomyelitis. Patient to be admitted to the hospitalist service. General surgery was consulted in the ER. Consult place. General surgery wants wound care consulted. - Differential Diagnosis sepsis. dm ulcer. foot infection. osteo Critical Care Time: Yes Critical care attestation.: If time is entered above; I have spent that time in minutes in the direct care of this critically ill patient, excluding procedure time. Critical Care Time: 45 minutes ED Disposition Clinical Impression: Diabetic foot infection, Toe infection, Hyponatremia, Hyperglycemia, Foot ulcer due to secondary DM Hypertension Qualifiers: Hypertension type: essential hypertension Qualified Code(s): I10 - Essential (primary) hypertension Cellulitis Qualifiers: Site of cellulitis: extremity Site of cellulitis of extremity: lower extremity Laterality: right Qualified Code(s): L03.115 - Cellulitis of right lower limb Uncontrolled diabetes mellitus Qualifiers: Diabetes mellitus type: type 2 Glycemic state: with hyperglycemia Qualified Code(s): E11.65 - Type 2 diabetes mellitus with hyperglycemia Disposition: DC-09 OP ADMIT IP TO THIS HOSP Is pt being admited?: Yes Does the pt Need Aspirin: No Condition: Critical Time of Disposition: 21:34
[2018-12-17 19:04] LABS: Bacteria,Urine 1+ /HPF (Negative); Bilirubin,Urine NEG (Negative); Blood,Urine NEG (Negative); Color,Urine Straw (Yellow); Protein,Urine <15 mg/dL mg/dL (Negative); Urobilinogen,Urine < 2.0 mg/dL (<2.0)
[2018-12-17] MEDS ORDERED: HumuLIN R IV ONE ×2 (20:14→20:54)
[2018-12-17] MEDS ORDERED: ZOFRAN IV ONE (20:15)
[2018-12-17] MEDS ORDERED: DILAUDID IV ONE (20:15)
[2018-12-17] MEDS ORDERED: NACL 0.9% 1000 ML 1,000 ML ONE (21:07)
[2018-12-17] MEDS ORDERED: VANCOMYCIN/NS 1 GM/250 ML 1 GM/250 ML BAG IV ONE (21:32)
[2018-12-17] MEDS ORDERED: D50W (25GM) Syringe IV PRN (22:01)
[2018-12-17] MEDS ORDERED: MORPHINE IV PRN (22:01)
[2018-12-17] MEDS ORDERED: TYLENOL PO PRN (22:01)
[2018-12-17] MEDS ORDERED: SODIUM CHLORIDE FLUSH SYRINGE 10 ML IV PRN (22:01)
--- NOTE | 2018-12-17 22:05 | History and Physical Report ---
History of Present Illness Date of examination: 12/17/18 History of present illness: 53-year-old woman with a history of hypertension, diabetes, depression, migraine comes to emergency room complain of right great toe swelling, red and bleeding from the toe. She is at the symptoms over the last 10 months and has been on several rounds of antibiotic with some improvement, however it showed goes back to being red and swollen. Over the last 2 weeks the symptoms have worsened Review of systems Constitutional: no weight loss, chills, fever Ears, eyes, nose, mouth and throat: no nasal congestion, no nasal discharge, no sinus pressure, no vision change, no red eye. Neck: No neck pain or rigidity. Cardiovascular: no palpitations, chest pain Respiratory: no cough, shortness of breath Gastrointestinal: no hematochezia, abdominal pain Genitourinary : no frequency , no hematuria Musculoskeletal: no joint swelling or muscle ache Integumentary: no rash, no pruritis Neurological: no parathesias, no focal weakness Endocrine: no cold or heat intolerance, no polyuria or polydipsia Hematologic/Lymphatic: no easy bruising, no easy bleeding, no gland swelling Allergic/Immunologic: no urticaria, no angioedema. PAST MEDICAL HISTORY: hypertension, diabetes, depression, migraine PAST SURGICAL HISTORY: Tubal ligation, cholecystectomy SOCIAL HISTORY: Denies alcohol, drugs, tobacco FAMILY HISTORY: Hypertension Medications and Allergies Allergies Allergy/AdvReac Type Severity Reaction Status Date / Time meperidine HCl [From Demerol] Allergy Unknown Verified 12/17/18 17:36 Home Medications Medication Instructions Recorded Confirmed Last Taken Type Doxepin [SINEquan] 200 mg PO QHS 05/09/17 12/17/18 09/08/17 History Atorvastatin [Lipitor] 20 mg PO QHS #30 tab 01/17/18 12/17/18 Unknown Rx Butalb/Acetamin/Caff 50-325-40 1 each PO Q4H PRN #30 tablet 01/17/18 12/17/18 Unknown Rx [Fioricet] Carisoprodol [Soma] 350 mg PO BID #60 tablet 01/17/18 12/17/18 Unknown Rx Lisinopril [Prinivil] 5 mg PO QDAY #30 tablet 01/17/18 12/17/18 Unknown Rx Metformin HCl 1,000 mg PO BID #60 tablet 01/17/18 12/17/18 Unknown Rx Corwin/Poly B/Gramicidin Opth Dasia 2 drops OU Q6HR #1 bottle 01/17/18 12/17/18 Unknown Rx [Neosporin] Verapamil HCl [Verelan] 360 mg PO BID 12/17/18 12/17/18 Unknown History Carisoprodol [Soma] 350 mg PO BID #20 tablet 12/21/18 Unknown Rx Glimepiride [Amaryl] 4 mg PO BID #60 tablet 12/21/18 Unknown Rx Insulin NPH/Regular [NovoLIN 70/30] 35 unit SUB-Q BIDDIAB 30 Days 12/21/18 Unknown Rx units Metoprolol [Lopressor TAB] 12.5 mg PO BID #60 tablet 12/21/18 Unknown Rx Sulfamethoxazole/Trimethoprim 1 each PO BID 10 Days tablet 12/21/18 Unknown Rx [Bactrim Ds Tablet] Active Meds: Active Medications Acetaminophen (Tylenol) 650 mg PO Q4H PRN PRN Reason: Pain MILD(1-3)/Fever >100.5/MARTINEZ Dextrose (D50w (25gm) Syringe) 50 ml IV PRN PRN PRN Reason: Hypoglycemia Enoxaparin Sodium (Lovenox) 30 mg SUB-Q QDAY JANE Vancomycin HCl (Vancomycin/Ns 1 Gm/250 Ml) 1 gm in 250 mls @ 167.007 mls/hr IV ONCE ONE; Protocol Stop: 12/17/18 23:01 Sodium Chloride (Nacl 0.45% 1000 Ml) 1,000 mls @ 75 mls/hr IV DIRECT JANE Exam - Physical Exam Narrative exam: General Apperance: The patient lying in bed, breathing comfortable HEENT: Normocephalic, atraumatic. Pupils equally round and reactive to light, EOMI, no sclericterus or JVD or thyromegaly or nodule. , no carotid bruit, mucous membranes moist, no exudate or erythema Heart: S1-S2, regular is rhythm Lungs: Clear to auscultation bilaterally, breathing comfortable Abdomen: Positive bowel sounds, soft, nontender, nondistended, no organomegaly Extremities: right toe red, swollen, No edema cyanosis clubbing Skin: no rash, nodule, warm and dry Neuro: cranial nerves 2-12 intact, speech is fluent, motor/sensory intact - Constitutional Vitals: Temp Pulse Resp BP Pulse Ox 98.5 F 112 H 18 148/78 95 12/17/18 19:51 12/17/18 19:51 12/17/18 19:51 12/17/18 19:51 12/17/18 19:51 Results - Labs CBC & Chem 7: 12/18/18 05:45 12/19/18 00:42 Labs: Abnormal lab results 12/17/18 12/17/18 12/17/18 Range/Units 17:37 17:48 17:48 MCHC 35 H (30-34) % Seg Neutrophils % 79.1 H (40.0-70.0) % VBG pH (7.320-7.420) Sodium 126 L (137-145) mmol/L Chloride 84.5 L (98-107) mmol/L Glucose 638 H* (65-100) mg/dL POC Glucose > 500 H (70-105) AST < 5 L (5-40) units/L ALT < 5 L (7-56) units/L Alkaline Phosphatase 197 H (35-129) units/L Albumin 3.7 L (3.9-5) g/dL 12/17/18 12/17/18 Range/Units 19:19 20:49 MCHC (30-34) % Seg Neutrophils % (40.0-70.0) % VBG pH 7.314 L (7.320-7.420) Sodium (137-145) mmol/L Chloride (98-107) mmol/L Glucose (65-100) mg/dL POC Glucose 437 H (70-105) AST (5-40) units/L ALT (7-56) units/L Alkaline Phosphatase (35-129) units/L Albumin (3.9-5) g/dL Assessment and Plan Lower extremity CT reviewed Assessment Diabetic foot infection Hypertension Diabetes uncontrolled Depression History of migraine Plan Admit to medicine Status post Vanco and cefepime in the emergency room, start Zosyn, fluid Follow cultures, surgery was consulted to see the patient in emergency room, Check fingersticks, initiate insulin sliding scale IV hydralazine as needed for blood pressure control
[2018-12-17] MEDS ORDERED: LANTUS SUB-Q ONE (22:30)
[2018-12-17] MEDS ORDERED: APRESOLINE IV PRN (22:31)
[2018-12-17] MEDS ORDERED: ZOFRAN ONE (23:09)
[2018-12-17] MEDS: ZOFRAN IV PRN (23:11)
--- NOTE | 2018-12-18 00:15 | Cat Scan Report ---
PROCEDURE: CT LEFT FOOT WITHOUT CONTRAST TECHNIQUE: Computerized axial tomography of the LEFT foot was performed without contrast. Automated exposure control, adjustment of mA and/or kV according to patient size, or iterative reconstruction dose optimization techniques were utilized. CPT G9637, 80715 HISTORY: Foot infection, soft tissue swelling, possible osteomyelitis COMPARISONS: None . FINDINGS: Bony structures including marrow spaces: Normal . Neurovascular structures: Normal . Soft tissues: There is soft tissue swelling along the medial aspect of the foot especially along the calcaneus. Mild ankle joint effusion medially is noted. No formed abscess or fluid collection Joint space: The joint spaces are maintained. . IMPRESSION: There is soft tissue swelling with slight fluid along the medial and inferior aspect of the hindfoot. No formed fluid collection or abscess. The osseous structures are intact without fractu re or dislocation. The bone mineralization is normal. . This document is electronically signed by Anu Tavarez DO., December 18 2018 12:13:46 AM ET
[2018-12-18] MEDS: NACL 0.45% 1000 ML 1,000 ML IV SCH ×2 (00:34→14:23)
[2018-12-18 06:05] LABS: Basophils % (Auto) 0.5 % (0.0-1.8); Eosinophils # (Auto) 0.1 K/mm3 (0.0-0.4); Eosinophils % (Auto) 1.5 % (0.0-4.3); Hematocrit 32.7 % (30.3-42.9); Hemoglobin 10.8 gm/dl (10.1-14.3); Lymphocytes # (Auto) 1.9 K/mm3 (1.2-5.4); Mean Corpuscular HGB Conc 33 % (30-34); Mean Corpuscular Volume 78 fl (79-97); Monocytes # (Auto) 0.3 K/mm3 (0.0-0.8); Monocytes % (Auto) 3.8 % (0.0-7.3); Platelet Count 236 K/mm3 (140-440); Red Cell Distribution Width 15.2 % (13.2-15.2)
[2018-12-18 06:36] LABS: BUN/Creatinine Ratio 16; Blood Urea Nitrogen 8 mg/dL (7-17); Calcium 8.3 mg/dL (8.4-10.2); Hemolysis Index 6
[2018-12-18] MEDS: ZOSYN/NS 4.5GM/100ML 4.5 GM/100 ML VIAL IV SCH ×3 (08:12→21:24)
[2018-12-18] MEDS: ZOFRAN IV PRN (08:14)
[2018-12-18] MEDS ORDERED: VERAPAMIL HCL 360 MG PO SCH (10:00)
[2018-12-18] MEDS ORDERED: LOVENOX SUB-Q SCH (10:00)
[2018-12-18] MEDS ORDERED: AFLURIA QUAD 2018-2019 SYRINGE IM ONE (12:00)
--- NOTE | 2018-12-18 12:08 | Progress Note ---
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 She is at the symptoms over the last 10 months and has been on several rounds of antibiotic with some improvement, however it showed goes back to being red and swollen. Over the last 2 weeks the symptoms have worsened Brief Hospital course: Pt was admitted to the hospital medicine service, with BG in the 600's range. On IVF hydration and IV abx. Subjective: Pt seen and exam, no new c/o. Hospitalist Physical - Constitutional Vitals: Temp Pulse Resp BP Pulse Ox 98.5 F 113 H 16 145/69 94 12/17/18 19:51 12/18/18 04:16 12/18/18 04:16 12/17/18 23:05 12/18/18 04:16 General appearance: Present: no acute distress, other (chronically ill appearing) - EENT Eyes: Present: PERRL ENT: hearing intact, clear oral mucosa, other (dry tongue) - Neck Neck: Present: supple, normal ROM - Respiratory Respiratory: bilateral: CTA, negative: diminished, rales, rhonchi, wheezing - Cardiovascular Rhythm: regular Heart Sounds: Present: S1 & S2 - Extremities Extremities: pulses intact, pulses symmetrical, normal temperature, abnormal (chronic wound right big toe) - Abdominal General gastrointestinal: soft, non-tender, non-distended, normal bowel sounds - Integumentary Integumentary: Present: clear, warm, dry - Psychiatric Psychiatric: appropriate mood/affect, intact judgment & insight, cooperative - Neurologic Neurologic: CNII-XII intact, moves all extremities - Allied Health Allied health notes reviewed: nursing, social work, case management Results - Labs CBC & Chem 7: 12/18/18 05:45 12/18/18 05:45 Labs: Laboratory Last Values WBC 7.2 K/mm3 (4.5-11.0) 12/18/18 05:45 RBC 4.20 M/mm3 (3.65-5.03) 12/18/18 05:45 Hgb 10.8 gm/dl (10.1-14.3) 12/18/18 05:45 Hct 32.7 % (30.3-42.9) 12/18/18 05:45 MCV 78 fl (79-97) L 12/18/18 05:45 MCH 26 pg (28-32) L 12/18/18 05:45 MCHC 33 % (30-34) 12/18/18 05:45 RDW 15.2 % (13.2-15.2) 12/18/18 05:45 Plt Count 236 K/mm3 (140-440) 12/18/18 05:45 Lymph % (Auto) 27.0 % (13.4-35.0) 12/18/18 05:45 [place] % (Auto) 3.8 % (0.0-7.3) 12/18/18 05:45 Eos % (Auto) 1.5 % (0.0-4.3) 12/18/18 05:45 Baso % (Auto) 0.5 % (0.0-1.8) 12/18/18 05:45 Lymph # 1.9 K/mm3 (1.2-5.4) 12/18/18 05:45 [place] # 0.3 K/mm3 (0.0-0.8) 12/18/18 05:45 Eos # 0.1 K/mm3 (0.0-0.4) 12/18/18 05:45 Baso # 0.0 K/mm3 (0.0-0.1) 12/18/18 05:45 Seg Neutrophils % 67.2 % (40.0-70.0) 12/18/18 05:45 Seg Neutrophils # 4.9 K/mm3 (1.8-7.7) 12/18/18 05:45 VBG pH 7.314 (7.320-7.420) L 12/17/18 19:19 Sodium 135 mmol/L (137-145) L D 12/18/18 05:45 Potassium 4.4 mmol/L (3.6-5.0) 12/18/18 05:45 Chloride 96.7 mmol/L (98-107) L 12/18/18 05:45 Carbon Dioxide 23 mmol/L (22-30) 12/18/18 05:45 Anion Gap 20 mmol/L 12/18/18 05:45 BUN 8 mg/dL (7-17) 12/18/18 05:45 Creatinine 0.5 mg/dL (0.7-1.2) L 12/18/18 05:45 Estimated GFR > 60 ml/min 12/18/18 05:45 BUN/Creatinine Ratio 16 % 12/18/18 05:45 Glucose 347 mg/dL (65-100) H 12/18/18 05:45 POC Glucose 339 (70-105) H 12/17/18 23:51 Lactic Acid 1.30 mmol/L (0.7-2.0) 12/17/18 21:43 Calcium 8.3 mg/dL (8.4-10.2) L 12/18/18 05:45 Total Bilirubin 0.20 mg/dL (0.1-1.2) 12/17/18 17:48 AST < 5 units/L (5-40) L 12/17/18 17:48 ALT < 5 units/L (7-56) L 12/17/18 17:48 Alkaline Phosphatase 197 units/L (35-129) H 12/17/18 17:48 Total Protein 8.1 g/dL (6.3-8.2) 12/17/18 17:48 Albumin 3.7 g/dL (3.9-5) L 12/17/18 17:48 Albumin/Globulin Ratio 0.8 % 12/17/18 17:48 Urine Color Straw (Yellow) 12/17/18 18:32 Urine Turbidity Clear (Clear) 12/17/18 18:32 Urine pH 6.0 (5.0-7.0) 12/17/18 18:32 Ur Specific [place] 1.030 (1.003-1.030) 12/17/18 18:32 Urine Protein <15 mg/dl mg/dL (Negative) 12/17/18 18:32 Urine Glucose (UA) >=500 mg/dL (Negative) 12/17/18 18:32 Urine Ketones 20 mg/dL (Negative) 12/17/18 18:32 Urine Blood Neg (Negative) 12/17/18 18:32 Urine Nitrite Neg (Negative) 12/17/18 18:32 Urine Bilirubin Neg (Negative) 12/17/18 18:32 Urine Urobilinogen < 2.0 mg/dL (<2.0) 12/17/18 18:32 Ur Leukocyte Esterase Neg (Negative) 12/17/18 18:32 Urine WBC (Auto) 1.0 /HPF (0.0-6.0) 12/17/18 18:32 Urine RBC (Auto) 2.0 /HPF (0.0-6.0) 12/17/18 18:32 U Epithel Cells (Auto) 1.0 /HPF (0-13.0) 12/17/18 18:32 Urine Bacteria (Auto) 1+ /HPF (Negative) 12/17/18 18:32
--- NOTE | 2018-12-18 13:30 | Consultation ---
History of Present Illness Consult date: 12/18/18 Reason for consult: wound care Requesting physician: KAROLINA SAHNI Chief complaint: Chronic Left toe wound - History of present illness History of present illness: 53-year-old female was admitted yesterday with hyperglycemia. Patient was also noted to have a chronic right great toe wound. Patient reports that she has no sensation in her foot from diabetes. She also is partially blind. About 10 months ago she stepped on a screw which injured the right great toe. She has been intermittently draining blood from the toe over the last month. She has had a fever recently but she's also had the flu recently. She reports that her also has leg infections and they have 2 dogs in the house. She says the dogs come in contact with the wound. Past History Past Medical History: diabetes, hypertension, other (Headaches, depression) Past Surgical History: cholecystectomy, Other (tubal ligation) Social history: denies: smoking, alcohol abuse, prescription drug abuse, IV drug use Family history: hypertension Medications and Allergies Allergies Allergy/AdvReac Type Severity Reaction Status Date / Time meperidine HCl [From Demerol] Allergy Unknown Verified 12/17/18 17:36 Home Medications Medication Instructions Recorded Confirmed Last Taken Type Doxepin [SINEquan] 200 mg PO QHS 05/09/17 12/17/18 09/08/17 History Glimepiride [Amaryl] 4 mg PO BID 05/09/17 12/17/18 09/08/17 History Insulin NPH/Regular [NovoLIN 70/30] 35 unit SUB-Q BIDDIAB 30 Days 09/16/17 12/17/18 Unknown Rx units Atorvastatin [Lipitor] 20 mg PO QHS #30 tab 01/17/18 12/17/18 Unknown Rx Butalb/Acetamin/Caff 50-325-40 1 each PO Q4H PRN #30 tablet 01/17/18 12/17/18 Unknown Rx [Fioricet] Carisoprodol [Soma] 350 mg PO BID #60 tablet 01/17/18 12/17/18 Unknown Rx Lisinopril [Prinivil] 5 mg PO QDAY #30 tablet 01/17/18 12/17/18 Unknown Rx Metformin HCl 1,000 mg PO BID #60 tablet 01/17/18 12/17/18 Unknown Rx Corwin/Poly B/Gramicidin Opth Dasia 2 drops OU Q6HR #1 bottle 01/17/18 12/17/18 Unknown Rx [Neosporin] Verapamil HCl [Verelan] 360 mg PO BID 12/17/18 12/17/18 Unknown History Active Meds: Active Medications Acetaminophen (Tylenol) 650 mg PO Q4H PRN PRN Reason: Pain MILD(1-3)/Fever >100.5/MARTINEZ Acetaminophen/Butalbital/Caffeine (Fioricet) 1 tab PO Q4H PRN PRN Reason: Headache Atorvastatin Calcium (Lipitor) 20 mg PO QHS JANE Dextrose (D50w (25gm) Syringe) 50 ml IV PRN PRN PRN Reason: Hypoglycemia Enoxaparin Sodium (Lovenox) 40 mg SUB-Q QDAY@1000 JANE Hydralazine HCl (Apresoline) 5 mg IV Q6H PRN PRN Reason: Hypertension Sodium Chloride (Nacl 0.45% 1000 Ml) 1,000 mls @ 75 mls/hr IV DIRECT JANE Last Admin: 12/18/18 00:34 Dose: 75 mls/hr Documented by: Piperacillin Sod/Tazobactam Sod (Zosyn/Ns 4.5gm/100ml) 4.5 gm in 100 mls @ 200 mls/hr IV Q8HR [facility]; Protocol Last Admin: 12/18/18 08:12 Dose: 200 mls/hr Documented by: Insulin Human Isoph/Insulin Regular (Humulin 70/30) 35 unit SUB-Q BIDDIAB [facility] Insulin Human Regular (Humulin R) 5 units SUB-Q Q4H [facility] Lisinopril (Zestril) 5 mg PO QDAY JANE Morphine Sulfate (Morphine) 2 mg IV Q4H PRN PRN Reason: Pain, Moderate (4-6) Neomycin/Polymyxin/Gramicidin (Neosporin) 2 drops OU Q6HR JANE Ondansetron HCl (Zofran) 4 mg IV Q8H PRN PRN Reason: Nausea And Vomiting Last Admin: 12/18/18 08:14 Dose: 4 mg Documented by: Sodium Chloride (Sodium Chloride Flush Syringe 10 Ml) 10 ml IV BID [facility] Sodium Chloride (Sodium Chloride Flush Syringe 10 Ml) 10 ml IV PRN PRN PRN Reason: LINE FLUSH Verapamil HCl (Calan Sr) 360 mg PO BID JANE Review of Systems - Constitutional fever, chronic headaches, no chills, no chronic pain - Cardiovascular no chest pain - Respiratory no cough - Gastrointestinal no abdominal pain - Integumentary wounds (right great toe), color changes, foot/leg ulcers - Neurological numbness (in feet) - Psychiatric depression Exam Vital Signs Temp Pulse Resp BP Pulse Ox 98.7 F 123 H 18 150/67 95 12/17/18 17:37 12/17/18 17:37 12/17/18 17:37 12/17/18 17:37 12/17/18 17:37 - General physical appearance Positive: no distress, no pain, other (pleasant) - Respiratory Positive: normal expansion, normal respiratory effort, clear to auscultation - Cardiovascular Rhythm: regular - Extremities Extremity abnormal: ulceration (noted on the under surface of the right great toe. Mild erythematous noted on the dorsum of the right great toe. There is no active drainage. Patient has no sensation. Palpable DP pulse. warm foot. Rest of the foot has no erythema or swelling. The nail is necrotic. There is no fluctuance) - Abdomen Abdomen: Present: soft. Absent: tender - Neurologic Neurologic: alert and oriented to time, place and person - Psychiatric Psychiatric: appropriate mood/affect, intact judgment & insight, cooperative Results - Labs 12/18/18 05:45 12/18/18 05:45 Abnormal lab results 12/17/18 12/17/18 12/17/18 Range/Units 17:37 17:48 17:48 MCV (79-97) fl MCH (28-32) pg MCHC 35 H (30-34) % Seg Neutrophils % 79.1 H (40.0-70.0) % VBG pH (7.320-7.420) Sodium 126 L (137-145) mmol/L Chloride 84.5 L (98-107) mmol/L Creatinine (0.7-1.2) mg/dL Glucose 638 H* (65-100) mg/dL POC Glucose > 500 H (70-105) Calcium (8.4-10.2) mg/dL AST < 5 L (5-40) units/L ALT < 5 L (7-56) units/L Alkaline Phosphatase 197 H (35-129) units/L Albumin 3.7 L (3.9-5) g/dL 12/17/18 12/17/18 12/17/18 Range/Units 19:19 20:49 23:51 MCV (79-97) fl MCH (28-32) pg MCHC (30-34) % Seg Neutrophils % (40.0-70.0) % VBG pH 7.314 L (7.320-7.420) Sodium (137-145) mmol/L Chloride (98-107) mmol/L Creatinine (0.7-1.2) mg/dL Glucose (65-100) mg/dL POC Glucose 437 H 339 H (70-105) Calcium (8.4-10.2) mg/dL AST (5-40) units/L ALT (7-56) units/L Alkaline Phosphatase (35-129) units/L Albumin (3.9-5) g/dL 12/18/18 12/18/18 12/18/18 Range/Units 05:45 05:45 12:42 MCV 78 L (79-97) fl MCH 26 L (28-32) pg MCHC (30-34) % Seg Neutrophils % (40.0-70.0) % VBG pH (7.320-7.420) Sodium 135 L D (137-145) mmol/L Chloride 96.7 L (98-107) mmol/L Creatinine 0.5 L (0.7-1.2) mg/dL Glucose 347 H (65-100) mg/dL POC Glucose 265 H (70-105) Calcium 8.3 L (8.4-10.2) mg/dL AST (5-40) units/L ALT (7-56) units/L Alkaline Phosphatase (35-129) units/L Albumin (3.9-5) g/dL Diabetes panel 12/17/18 12/18/18 Range/Units 17:48 05:45 Sodium 126 L 135 L D (137-145) mmol/L Potassium 4.8 4.4 (3.6-5.0) mmol/L Chloride 84.5 L 96.7 L (98-107) mmol/L Carbon Dioxide 26 23 (22-30) mmol/L BUN 9 8 (7-17) mg/dL Creatinine 0.8 0.5 L (0.7-1.2) mg/dL Glucose 638 H* 347 H (65-100) mg/dL Calcium 9.4 8.3 L (8.4-10.2) mg/dL AST < 5 L (5-40) units/L ALT < 5 L (7-56) units/L Alkaline Phosphatase 197 H (35-129) units/L Total Protein 8.1 (6.3-8.2) g/dL Albumin 3.7 L (3.9-5) g/dL Calcium panel 12/17/18 12/18/18 Range/Units 17:48 05:45 Calcium 9.4 8.3 L (8.4-10.2) mg/dL Albumin 3.7 L (3.9-5) g/dL Pituitary panel 12/17/18 12/18/18 Range/Units 17:48 05:45 Sodium 126 L 135 L D (137-145) mmol/L Potassium 4.8 4.4 (3.6-5.0) mmol/L Chloride 84.5 L 96.7 L (98-107) mmol/L Carbon Dioxide 26 23 (22-30) mmol/L BUN 9 8 (7-17) mg/dL Creatinine 0.8 0.5 L (0.7-1.2) mg/dL Glucose 638 H* 347 H (65-100) mg/dL Calcium 9.4 8.3 L (8.4-10.2) mg/dL Adrenal panel 12/17/18 12/18/18 Range/Units 17:48 05:45 Sodium 126 L 135 L D (137-145) mmol/L Potassium 4.8 4.4 (3.6-5.0) mmol/L Chloride 84.5 L 96.7 L (98-107) mmol/L Carbon Dioxide 26 23 (22-30) mmol/L BUN 9 8 (7-17) mg/dL Creatinine 0.8 0.5 L (0.7-1.2) mg/dL Glucose 638 H* 347 H (65-100) mg/dL Calcium 9.4 8.3 L (8.4-10.2) mg/dL Total Bilirubin 0.20 (0.1-1.2) mg/dL AST < 5 L (5-40) units/L ALT < 5 L (7-56) units/L Alkaline Phosphatase 197 H (35-129) units/L Total Protein 8.1 (6.3-8.2) g/dL Albumin 3.7 L (3.9-5) g/dL - Imaging Additional studies: CT right foot Assessment and Plan - Patient Problems (1) Diabetic foot infection Current Visit: Yes Status: Acute Plan to address problem: Pt stable. Patient has a chronic wound. As she has visual deficits, it is difficult to know whether the toe is significantly different now compared to a month ago or if it is about the same. On clinical exam and CT there is no abscess. There is no active drainage on exam. Cellulitis appears mild. I have marked out the extent of the cellulitis. Would do routine wound care now with the Mesalt dressing. Will monitored closely. The necrotic nail will most likely fall off on its own. We can remove it in the wound clinic at a later date if need be. I do not recommend any surgical intervention at this time. I will follow along. Please call with questions. time=30min
[2018-12-18] MEDS: LOVENOX SUB-Q SCH (14:02)
[2018-12-18] MEDS: ZESTRIL PO SCH (14:02)
[2018-12-18] MEDS: CALAN SR PO SCH ×2 (14:03→21:25)
[2018-12-18] MEDS: HumuLIN R SUB-Q SCH ×3 (14:03→20:52)
[2018-12-18] MEDS: SODIUM CHLORIDE FLUSH SYRINGE 10 ML IV SCH (14:04)
[2018-12-18] MEDS: FIORICET PO PRN (14:23)
[2018-12-18] MEDS: NEOSPORIN OU SCH (17:44)
[2018-12-19] MEDS: SINEquan PO SCH ×2 (00:59→21:37)
[2018-12-19] MEDS: ZOFRAN IV PRN (01:00)
[2018-12-19] MEDS: SODIUM CHLORIDE FLUSH SYRINGE 10 ML IV SCH ×3 (01:01→21:36)
[2018-12-19] MEDS: SOMA PO SCH ×3 (01:01→21:37)
[2018-12-19] MEDS: HumuLIN R SUB-Q SCH ×6 (01:04→22:34)
[2018-12-19] MEDS: NEOSPORIN OU SCH ×4 (01:05→17:15)
[2018-12-19 02:14] LABS: BUN/Creatinine Ratio 16; Blood Urea Nitrogen 8 mg/dL (7-17); Calcium 8.5 mg/dL (8.4-10.2); Hemolysis Index 106
[2018-12-19] MEDS: NACL 0.45% 1000 ML 1,000 ML IV SCH ×2 (03:56→18:40)
[2018-12-19] MEDS: ZOSYN/NS 4.5GM/100ML 4.5 GM/100 ML VIAL IV SCH ×3 (05:49→21:36)
[2018-12-19] MEDS: LOVENOX SUB-Q SCH (09:36)
[2018-12-19] MEDS: ZESTRIL PO SCH (11:44)
--- NOTE | 2018-12-19 12:10 | Progress Note ---
Assessment and Plan - Patient Problems (1) Diabetic foot infection Current Visit: Yes Status: Acute Plan to address problem: Pt stable. The cellulitis is mildly improved today. I perform the dressing change today. It is important that we offload the right foot. I will ask physical therapy to see her for a walker. She should be nonweightbearing on the right foot until the wound heals. The necrotic nail will most likely fall off on its own. We can remove it in the wound clinic at a later date if need be. I do not recommend any surgical i ntervention at this time. I will follow along. Please call with questions. time=10min Subjective Date of service: 12/19/18 Patient Reports: Positive: no new complaints, other (had another episode of bleeding when she was walking around the room) Objective Vital Signs - 12hr 12/19/18 12/19/18 12/19/18 00:58 06:12 07:02 Temperature 99.2 F Pulse Rate 103 H 108 H 107 H Respiratory 18 18 18 Rate Blood Pressure 98/53 114/49 O2 Sat by Pulse 100 90 92 Oximetry 12/19/18 07:03 Temperature Pulse Rate 106 H Respiratory Rate Blood Pressure O2 Sat by Pulse 94 Oximetry - General physical appearance no distress, no pain - Respiratory normal expansion, normal respiratory effort - Integumentary other (right great toe is unchanged. Erythema on dorsum of toe is improved. There is no active drainage.) - Psychiatric oriented to time, oriented to person, oriented to place, speech is normal, memory intact - Labs 12/18/18 05:45 12/19/18 00:42 Diabetes panel 12/19/18 12/19/18 Range/Units 00:42 00:42 Sodium 135 L (137-145) mmol/L Potassium 4.3 (3.6-5.0) mmol/L Chloride 96.8 L (98-107) mmol/L Carbon Dioxide 27 (22-30) mmol/L BUN 8 (7-17) mg/dL Creatinine 0.5 L (0.7-1.2) mg/dL Glucose 217 H (65-100) mg/dL Hemoglobin A1c 13.8 H (4-6) % Calcium 8.5 (8.4-10.2) mg/dL Calcium panel 12/19/18 Range/Units 00:42 Calcium 8.5 (8.4-10.2) mg/dL Pituitary panel 12/19/18 Range/Units 00:42 Sodium 135 L (137-145) mmol/L Potassium 4.3 (3.6-5.0) mmol/L Chloride 96.8 L (98-107) mmol/L Carbon Dioxide 27 (22-30) mmol/L BUN 8 (7-17) mg/dL Creatinine 0.5 L (0.7-1.2) mg/dL Glucose 217 H (65-100) mg/dL Calcium 8.5 (8.4-10.2) mg/dL Adrenal panel 12/19/18 Range/Units 00:42 Sodium 135 L (137-145) mmol/L Potassium 4.3 (3.6-5.0) mmol/L Chloride 96.8 L (98-107) mmol/L Carbon Dioxide 27 (22-30) mmol/L BUN 8 (7-17) mg/dL Creatinine 0.5 L (0.7-1.2) mg/dL Glucose 217 H (65-100) mg/dL Calcium 8.5 (8.4-10.2) mg/dL
--- NOTE | 2018-12-19 13:59 | Progress Note ---
Assessment and Plan Assessment and plan: Poorly controlled II with hyperglycemia -insulin regimen adjusted, will monitor -hba1c:13.8 Chronic diabetic RT foot infection -cont antibiotic and wound care -Gen surgery on board HTN -BP low normal, verapmil held DM Retinopathy -outpt Ophthalmology eval Disp; for d/c when medically stable and cleared by surgery History Interval history: Pt has no new complaints Hospitalist Physical - Constitutional Vitals: Temp Pulse Resp BP Pulse Ox 99.2 F 106 H 18 114/49 94 12/19/18 06:12 12/19/18 07:03 12/19/18 07:02 12/19/18 07:02 12/19/18 07:03 General appearance: Present: no acute distress - EENT Eyes: Present: PERRL, EOM intact ENT: hearing intact, clear oral mucosa - Neck Neck: Present: supple - Respiratory Respiratory effort: normal Respiratory: bilateral: CTA - Cardiovascular Rhythm: regular Heart Sounds: Present: S1 & S2 - Extremities Extremity abnormal: other (dressing over RT foot noted) - Abdominal General gastrointestinal: soft, non-tender, non-distended, normal bowel sounds - Neurologic Neurologic: CNII-XII intact Results - Labs CBC & Chem 7: 12/18/18 05:45 12/19/18 00:42 Labs: Laboratory Last Values WBC 7.2 K/mm3 (4.5-11.0) 12/18/18 05:45 RBC 4.20 M/mm3 (3.65-5.03) 12/18/18 05:45 Hgb 10.8 gm/dl (10.1-14.3) 12/18/18 05:45 Hct 32.7 % (30.3-42.9) 12/18/18 05:45 MCV 78 fl (79-97) L 12/18/18 05:45 MCH 26 pg (28-32) L 12/18/18 05:45 MCHC 33 % (30-34) 12/18/18 05:45 RDW 15.2 % (13.2-15.2) 12/18/18 05:45 Plt Count 236 K/mm3 (140-440) 12/18/18 05:45 Lymph % (Auto) 27.0 % (13.4-35.0) 12/18/18 05:45 [place] % (Auto) 3.8 % (0.0-7.3) 12/18/18 05:45 Eos % (Auto) 1.5 % (0.0-4.3) 12/18/18 05:45 Baso % (Auto) 0.5 % (0.0-1.8) 12/18/18 05:45 Lymph # 1.9 K/mm3 (1.2-5.4) 12/18/18 05:45 [place] # 0.3 K/mm3 (0.0-0.8) 12/18/18 05:45 Eos # 0.1 K/mm3 (0.0-0.4) 12/18/18 05:45 Baso # 0.0 K/mm3 (0.0-0.1) 12/18/18 05:45 Seg Neutrophils % 67.2 % (40.0-70.0) 12/18/18 05:45 Seg Neutrophils # 4.9 K/mm3 (1.8-7.7) 12/18/18 05:45 VBG pH 7.314 (7.320-7.420) L 12/17/18 19:19 Sodium 135 mmol/L (137-145) L 12/19/18 00:42 Potassium 4.3 mmol/L (3.6-5.0) 12/19/18 00:42 Chloride 96.8 mmol/L (98-107) L 12/19/18 00:42 Carbon Dioxide 27 mmol/L (22-30) 12/19/18 00:42 Anion Gap 16 mmol/L 12/19/18 00:42 BUN 8 mg/dL (7-17) 12/19/18 00:42 Creatinine 0.5 mg/dL (0.7-1.2) L 12/19/18 00:42 Estimated GFR > 60 ml/min 12/19/18 00:42 BUN/Creatinine Ratio 16 % 12/19/18 00:42 Glucose 217 mg/dL (65-100) H 12/19/18 00:42 POC Glucose 282 (70-105) H 12/19/18 11:17 Hemoglobin A1c 13.8 % (4-6) H 12/19/18 00:42 Lactic Acid 1.30 mmol/L (0.7-2.0) 12/17/18 21:43 Calcium 8.5 mg/dL (8.4-10.2) 12/19/18 00:42 Total Bilirubin 0.20 mg/dL (0.1-1.2) 12/17/18 17:48 AST < 5 units/L (5-40) L 12/17/18 17:48 ALT < 5 units/L (7-56) L 12/17/18 17:48 Alkaline Phosphatase 197 units/L (35-129) H 12/17/18 17:48 Total Protein 8.1 g/dL (6.3-8.2) 12/17/18 17:48 Albumin 3.7 g/dL (3.9-5) L 12/17/18 17:48 Albumin/Globulin Ratio 0.8 % 12/17/18 17:48 Urine Color Straw (Yellow) 12/17/18 18:32 Urine Turbidity Clear (Clear) 12/17/18 18:32 Urine pH 6.0 (5.0-7.0) 12/17/18 18:32 Ur Specific [place] 1.030 (1.003-1.030) 12/17/18 18:32 Urine Protein <15 mg/dl mg/dL (Negative) 12/17/18 18:32 Urine Glucose (UA) >=500 mg/dL (Negative) 12/17/18 18:32 Urine Ketones 20 mg/dL (Negative) 12/17/18 18:32 Urine Blood Neg (Negative) 12/17/18 18:32 Urine Nitrite Neg (Negative) 12/17/18 18:32 Urine Bilirubin Neg (Negative) 12/17/18 18:32 Urine Urobilinogen < 2.0 mg/dL (<2.0) 12/17/18 18:32 Ur Leukocyte Esterase Neg (Negative) 12/17/18 18:32 Urine WBC (Auto) 1.0 /HPF (0.0-6.0) 12/17/18 18:32 Urine RBC (Auto) 2.0 /HPF (0.0-6.0) 12/17/18 18:32 U Epithel Cells (Auto) 1.0 /HPF (0-13.0) 12/17/18 18:32 Urine Bacteria (Auto) 1+ /HPF (Negative) 12/17/18 18:32 Nutrition/Malnutrition Assess - Dietary Evaluation Nutrition/Malnutrition Findings: Nutrition Notes Start: 12/18/18 12:38 Freq: Status: Active Protocol: Document 12/19/18 09:46 LP (Rec: 12/19/18 09:49 LP [id number]) Nutrition Notes Initial or Follow up Reassessment Current Diagnosis Diabetes Hypertension Subjective/Other Information Consult for uncontrolled DM. Pt denies want for education at this moment. Left with handout and will come back another day. Nutrition Intervention Add Supplement/Snack (indicate name/kcal Ensure high protein daily and /protein ) Satish BID Provides kCal: 350 Provides Protein (gm) 21 Follow-Up By: 12/21/18 Additional Comments Follow for intakes and DM education
[2018-12-19] MEDS ORDERED: LANTUS SUB-Q SCH (22:00)
[2018-12-20] MEDS: ZOSYN/NS 4.5GM/100ML 4.5 GM/100 ML VIAL IV SCH ×3 (06:24→22:34)
[2018-12-20] MEDS: NEOSPORIN OU SCH ×4 (06:24→17:14)
[2018-12-20] MEDS: HumuLIN R SUB-Q SCH ×4 (09:03→22:35)
[2018-12-20] MEDS: SODIUM CHLORIDE FLUSH SYRINGE 10 ML IV SCH ×2 (09:04→22:40)
[2018-12-20] MEDS: SOMA PO SCH ×2 (09:04→22:33)
[2018-12-20] MEDS: LOVENOX SUB-Q SCH (09:04)
[2018-12-20] MEDS: ZESTRIL PO SCH (09:05)
[2018-12-20] MEDS: NACL 0.45% 1000 ML 1,000 ML IV SCH (09:06)
--- NOTE | 2018-12-20 11:46 | Progress Note ---
Assessment and Plan - Patient Problems (1) Diabetic foot infection Current Visit: Yes Status: Acute Plan to address problem: Pt stable. The cellulitis continues to improve. It is important that we offload the right foot. I will ask physical therapy to see her for a walker. She should be nonweightbearing on the right foot until the wound heals. If she is unable to receive a walker due to lack of insurance, she reports that she has a friend that will let her borrow a walker. It is critical that she stay off the right foot. The necrotic nail will most likely fall off on its own. We can remove it in the wound clinic at a later date if need be. I do not recommend any surgical intervention at this time. Okay for discharge from my standpoint. I would like her to follow up in the wound care clinic after discharge. I will follow along. Please call with questions. time=10min Subjective Date of service: 12/20/18 Patient Reports: Positive: no new complaints, other (did not apply any pressure to the right foot. Drainage/bleeding has been less.) Objective Vital Signs - 12hr 12/20/18 06:57 Temperature 98.2 F Pulse Rate 107 H Respiratory 20 Rate Blood Pressure 114/49 O2 Sat by Pulse 96 Oximetry - General physical appearance no distress, no pain - Respiratory normal expansion, normal respiratory effort - Integumentary other (erythema on the right great toe continues to slowly improved. Swelling is less.) - Psychiatric oriented to time, oriented to person, oriented to place, speech is normal, memory intact - Labs 12/18/18 05:45 12/19/18 00:42
[2018-12-20] MEDS: LANTUS SUB-Q SCH ×2 (12:59→22:34)
--- NOTE | 2018-12-20 13:43 | Progress Note ---
Assessment and Plan Assessment and plan: Poorly controlled II with hyperglycemia -insulin regimen adjusted, will monitor -hba1c:13.8 Chronic diabetic RT foot infection -cont antibiotic and wound care -Gen surgery recommended a walker in order to stay off the foot HTN -BP low normal, home verapamil held -on low dose lopressor for the sinus tachycardia DM Retinopathy -outpt Ophthalmology eval Disp; for possible d/c in am. caser in to help with walker for home History Interval history: Pt complained of cough Hospitalist Physical - Constitutional Vitals: Temp Pulse Resp BP Pulse Ox 98.3 F 101 H 18 126/60 96 12/20/18 13:03 12/20/18 13:03 12/20/18 13:03 12/20/18 13:03 12/20/18 13:03 General appearance: Present: no acute distress - EENT Eyes: Present: PERRL, EOM intact ENT: hearing intact, clear oral mucosa - Neck Neck: Present: supple - Respiratory Respiratory effort: normal Respiratory: bilateral: CTA - Cardiovascular Rhythm: regular (tachycardia) Heart Sounds: Present: S1 & S2 - Extremities Extremity abnormal: other (dressing over RT foot) - Abdominal General gastrointestinal: soft, non-tender, non-distended, normal bowel sounds - Neurologic Neurologic: CNII-XII intact Results - Labs CBC & Chem 7: 12/18/18 05:45 12/19/18 00:42 Labs: Laboratory Last Values WBC 7.2 K/mm3 (4.5-11.0) 12/18/18 05:45 RBC 4.20 M/mm3 (3.65-5.03) 12/18/18 05:45 Hgb 10.8 gm/dl (10.1-14.3) 12/18/18 05:45 Hct 32.7 % (30.3-42.9) 12/18/18 05:45 MCV 78 fl (79-97) L 12/18/18 05:45 MCH 26 pg (28-32) L 12/18/18 05:45 MCHC 33 % (30-34) 12/18/18 05:45 RDW 15.2 % (13.2-15.2) 12/18/18 05:45 Plt Count 236 K/mm3 (140-440) 12/18/18 05:45 Lymph % (Auto) 27.0 % (13.4-35.0) 12/18/18 05:45 [place] % (Auto) 3.8 % (0.0-7.3) 12/18/18 05:45 Eos % (Auto) 1.5 % (0.0-4.3) 12/18/18 05:45 Baso % (Auto) 0.5 % (0.0-1.8) 12/18/18 05:45 Lymph # 1.9 K/mm3 (1.2-5.4) 12/18/18 05:45 [place] # 0.3 K/mm3 (0.0-0.8) 12/18/18 05:45 Eos # 0.1 K/mm3 (0.0-0.4) 12/18/18 05:45 Baso # 0.0 K/mm3 (0.0-0.1) 12/18/18 05:45 Seg Neutrophils % 67.2 % (40.0-70.0) 12/18/18 05:45 Seg Neutrophils # 4.9 K/mm3 (1.8-7.7) 12/18/18 05:45 VBG pH 7.314 (7.320-7.420) L 12/17/18 19:19 Sodium 135 mmol/L (137-145) L 12/19/18 00:42 Potassium 4.3 mmol/L (3.6-5.0) 12/19/18 00:42 Chloride 96.8 mmol/L (98-107) L 12/19/18 00:42 Carbon Dioxide 27 mmol/L (22-30) 12/19/18 00:42 Anion Gap 16 mmol/L 12/19/18 00:42 BUN 8 mg/dL (7-17) 12/19/18 00:42 Creatinine 0.5 mg/dL (0.7-1.2) L 12/19/18 00:42 Estimated GFR > 60 ml/min 12/19/18 00:42 BUN/Creatinine Ratio 16 % 12/19/18 00:42 Glucose 217 mg/dL (65-100) H 12/19/18 00:42 POC Glucose 332 (70-105) H 12/20/18 12:10 Hemoglobin A1c 13.8 % (4-6) H 12/19/18 00:42 Lactic Acid 1.30 mmol/L (0.7-2.0) 12/17/18 21:43 Calcium 8.5 mg/dL (8.4-10.2) 12/19/18 00:42 Total Bilirubin 0.20 mg/dL (0.1-1.2) 12/17/18 17:48 AST < 5 units/L (5-40) L 12/17/18 17:48 ALT < 5 units/L (7-56) L 12/17/18 17:48 Alkaline Phosphatase 197 units/L (35-129) H 12/17/18 17:48 Total Protein 8.1 g/dL (6.3-8.2) 12/17/18 17:48 Albumin 3.7 g/dL (3.9-5) L 12/17/18 17:48 Albumin/Globulin Ratio 0.8 % 12/17/18 17:48 Urine Color Straw (Yellow) 12/17/18 18:32 Urine Turbidity Clear (Clear) 12/17/18 18:32 Urine pH 6.0 (5.0-7.0) 12/17/18 18:32 Ur Specific [place] 1.030 (1.003-1.030) 12/17/18 18:32 Urine Protein <15 mg/dl mg/dL (Negative) 12/17/18 18:32 Urine Glucose (UA) >=500 mg/dL (Negative) 12/17/18 18:32 Urine Ketones 20 mg/dL (Negative) 12/17/18 18:32 Urine Blood Neg (Negative) 12/17/18 18:32 Urine Nitrite Neg (Negative) 12/17/18 18:32 Urine Bilirubin Neg (Negative) 12/17/18 18:32 Urine Urobilinogen < 2.0 mg/dL (<2.0) 12/17/18 18:32 Ur Leukocyte Esterase Neg (Negative) 12/17/18 18:32 Urine WBC (Auto) 1.0 /HPF (0.0-6.0) 12/17/18 18:32 Urine RBC (Auto) 2.0 /HPF (0.0-6.0) 12/17/18 18:32 U Epithel Cells (Auto) 1.0 /HPF (0-13.0) 12/17/18 18:32 Urine Bacteria (Auto) 1+ /HPF (Negative) 12/17/18 18:32 Nutrition/Malnutrition Assess - Dietary Evaluation Nutrition/Malnutrition Findings: Nutrition Notes Start: 12/18/18 12:38 Freq: Status: Active Protocol: Document 12/19/18 09:46 LP (Rec: 12/19/18 09:49 LP [id number]) Nutrition Notes Initial or Follow up Reassessment Current Diagnosis Diabetes Hypertension Subjective/Other Information Consult for uncontrolled DM. Pt denies want for education at this moment. Left with handout and will come back another day. Nutrition Intervention Add Supplement/Snack (indicate name/kcal Ensure high protein daily and /protein ) Satish BID Provides kCal: 350 Provides Protein (gm) 21 Follow-Up By: 12/21/18 Additional Comments Follow for intakes and DM education
[2018-12-20] MEDS: MUCINEX ER PO SCH ×2 (16:51→22:33)
[2018-12-20] MEDS: SINEquan PO SCH (22:33)
[2018-12-20] MEDS: LOPRESSOR PO SCH (22:34)
[2018-12-21] MEDS: NACL 0.45% 1000 ML 1,000 ML IV SCH ×2 (00:32→09:26)
[2018-12-21] MEDS: NEOSPORIN OU SCH ×3 (00:33→12:46)
[2018-12-21] MEDS ORDERED: NACL 0.9% 1000 ML 1,000 ML IV ONE (02:15)
[2018-12-21] MEDS: ZOSYN/NS 4.5GM/100ML 4.5 GM/100 ML VIAL IV SCH ×2 (06:57→15:30)
[2018-12-21] MEDS: SOMA PO SCH (09:16)
[2018-12-21] MEDS: MUCINEX ER PO SCH (09:16)
[2018-12-21] MEDS: HumuLIN R SUB-Q SCH ×2 (09:17→12:46)
[2018-12-21] MEDS: LANTUS SUB-Q SCH (09:17)
[2018-12-21] MEDS: LOVENOX SUB-Q SCH (09:17)
[2018-12-21] MEDS: ZOFRAN IV PRN (09:26)
[2018-12-21 12:43] VITALS: BP 119/61
[2018-12-21] MEDS: LOPRESSOR PO SCH (12:47)
[2018-12-21] MEDS: FIORICET PO PRN (12:51)
--- NOTE | 2018-12-21 14:04 | Discharge Summary ---
Providers - Providers Date of Admission: 12/17/18 22:01 Attending physician: TC PURCELL MD 12/17/18 20:34 Consult to Physician [CONS] Routine Comment: Consulting Provider: WENCESLAO BELLA Physician Instructions: Reason For Exam: dm foot ulcer 12/17/18 21:31 Consult to Wound/ET Nurse [CONS] Routine Reason For Exam: wound eval 12/18/18 16:25 Consult to Dietitian/Nutrition [CONS] Routine Physician Instructions: Reason For Exam: Reason for Consult: uncontrolled dm 12/19/18 11:57 Physical Therapy Evaluation and Treat [CONS] Routine Comment: Pt not to bear weight on right foot. Reason For Exam: evaluate for ambulation assistive device Weight bearing status?: Nonwt bearing Assistive devices?: Yes If so list: Walker Primary care physician: TERRELL CHAPA Hospitalization Reason for admission: cellulitis Condition: Stable Hospital course: 53-year-old woman with a history of hypertension, diabetes, depression, migraine comes to emergency room complain of right great toe swelling, red and bleeding from the toe. She is at the symptoms over the last 10 months and has been on several rounds of antibiotic with some improvement, however it showed goes back to being red and swollen. Over the last 2 weeks the symptoms have worsened, on admission pateint was treated with abx and general surgery evaluated and johnson mmended offloading. A walker was also recommended. Repeat A1C showed poor diabetic management, counselling was provided extensively and follow up discussed with the patient. she verbalized understanding. she will also follow with Opthalmologist outpatient. 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 Poorly controlled DM II with hyperglycemia Chronic diabetic RT foot infection with cellulitis HTN DM Retinopathy Disposition: TO HOME OR SELFCARE Time spent for discharge: 35 mins Core Measure Documentation - Palliative Care Palliative Care/ Comfort Measures: Not Applicable - Core Measures Any of the following diagnoses?: none Exam - Physical Exam Narrative exam: General appearance: Present: no acute distress - EENT Eyes: Present: PERRL, EOM intact ENT: hearing intact, clear oral mucosa - Neck Neck: Present: supple - Respiratory Respiratory effort: normal Respiratory: bilateral: CTA - Cardiovascular Rhythm: regular Heart Sounds: Present: S1 & S2 - Extremities Extremity abnormal: other (dressing over RT foot noted) - Abdominal General gastrointestinal: soft, non-tender, non-distended, normal bowel sounds - Neurologic Neurologic: CNII-XII intact - Constitutional Vitals: Temp Pulse Resp BP Pulse Ox 97.4 F L 77 19 119/61 94 12/21/18 12:13 12/21/18 12:47 12/21/18 12:13 12/21/18 12:47 12/21/18 12:13 Plan Activity: advance as tolerated, fall precautions Diet: low fat, diabetic Special Instructions: record daily weights, record daily BP diary, record blood sugar diary, home health RN [facility] [Referring] - 3-5 Days WENCESLAO BELLA MD [Staff Physician] - 7 Days Prescriptions: Carisoprodol [Soma] 350 mg PO BID #20 tablet Glimepiride [Amaryl] 4 mg PO BID #60 tablet Insulin NPH/Regular [NovoLIN 70/30] 35 unit SUB-Q BIDDIAB 30 Days units Metoprolol [Lopressor TAB] 12.5 mg PO BID #60 tablet Sulfamethoxazole/Trimethoprim [Bactrim Ds Tablet] 1 each PO BID 10 Days tablet
== END 2018-12-21 16:00 | disposition home or self-care (01) | DRG 638 ==
LOC: ED 17:24 → 3A 22:01
PROVIDERS: ADMIT Internal Medicine; ATTEND Internal Medicine
DX: E11.621 Type 2 diabetes mellitus with foot ulcer (principal); L03.115 Cellulitis of right lower limb; E87.1 Hypo-osmolality and hyponatremia; E11.628 Type 2 diabetes mellitus with other skin complications; E11.65 Type 2 diabetes mellitus with hyperglycemia; E11.40 Type 2 diabetes mellitus with diabetic neuropathy, unspecified; E11.319 Type 2 diabetes mellitus with unspecified diabetic retinopathy without macular edema; I10 Essential (primary) hypertension; G43.909 Migraine, unspecified, not intractable, without status migrainosus; F32.9 Major depressive disorder, single episode, unspecified; L97.519 Non-pressure chronic ulcer of other part of right foot with unspecified severity; E86.0 Dehydration; Z79.84 Long term (current) use of oral hypoglycemic drugs; Z98.51 Tubal ligation status; Z90.49 Acquired absence of other specified parts of digestive tract; Z88.8 Allergy status to other drugs, medicaments and biological substances
CPT/HCPCS: 36415; 80048; 80053; 81001; 82140; 82805; 82962; 83036; 85025; 87040; 90686; 96361; 96365; 96375; G0378; A9270-GY; J0692; J1170; J1650; J1815; J2405; J2543; J3370; J7030